=== PATIENT | male | born 1945 | race Caucasian/White ===

== ENCOUNTER 2018-03-15 16:52 | Inpatient (IN) ==
--- NOTE | 2018-03-15 21:09 | ED ---
HPI General Chief complaint: Extremity Problem,Nontraumatic Stated complaint: Legs swelling Time Seen by Provider: 03/15/18 20:41 History of Present Illness HPI narrative: 72-year-old male with a history of hyperlipidemia and hypertension presents to the emergency department for evaluation of lower extremity edema and wounds. The patient states that he has had these lower extremity wounds for the past 6 months. States that it has been worsening over the past 6 months. States that there is discharge and drainage noted. He states he does elevate the legs and keep them wrapped which has not been helping. States he sometimes feels as though he has a fever, has not taken his temperature. He denies any history of heart disease, heart failure. Denies any numbness or tingling, weakness. His PCP is Danelle JJ. No other complaints. Related Data Home Medications Medication Instructions Recorded Confirmed furosemide [Lasix] 40 mg PO DAILY 03/15/18 03/15/18 simvastatin 20 mg PO QPM 03/15/18 03/15/18 Allergies Allergy/AdvReac Type Severity Reaction Status Date / Time No Known Allergies Allergy Verified 03/15/18 21:47 Review of Systems ROS: all other systems reviewed are negative [facility] Medical History Medical History CHF (congestive heart failure) (Acute) Hyperlipidemia (Acute) Surgical history unknown (Acute) Family History Family History Other Family history normal Social History Social History Second Hand Smoke Exposure: No Smoking Status: Former smoker How Often Do You Have a Drink Containing Alcohol: Never Recent Travel in [facility] within the Last 8 Weeks: No Recent Out of Country Travel within the Last 8 Weeks: No Immunization History Tetanus Immunization: >5 Years Hx Influenza Vaccine This Season: No Exam Narrative Exam Narrative: GENERAL: Well-nourished and well-developed pleasant male patient in no acute distress who is nontoxic appearing. SKIN: Warm and dry. HEAD: Normocephalic and atraumatic. EYES: No injection, drainage, or hyphema noted. PERRLA. EOMI. ENT: No nasal drainage noted. Oropharynx is clear. NECK: Supple and the trachea is midline. CARDIOVASCULAR: Regular rate and rhythm. RESPIRATORY: Breath sounds are equal bilaterally with no accessory muscle use, wheezing, rhonchi, or crackles. GASTROINTESTINAL: Abdomen is soft, non-tender, and nondistended. MUSCULOSKELETAL: Bilateral lower extremity edema with skin hypertrophy and sloughing, there is erythema and several large areas of ulcers with necrotic tissue. No obvious deformities, swelling, cyanosis, or ecchymosis is present throughout the upper and lower extremities. Patient has full range of motion without any signs of neurovascular compromise. Distal pulses are 2+ throughout. NEUROLOGICAL: Awake, alert, and oriented. Normal speech and gait. Cranial nerves are grossly intact. Course Initial Documented Vital Signs Temperature 98.9 F 03/15/18 17:03 Pulse Rate 83 03/15/18 17:03 Respiratory Rate 16 03/15/18 17:03 Blood Pressure 127/71 03/15/18 17:03 Pulse Oximetry 95 03/15/18 17:03 Last Documented Vital Signs Temperature 98 F 03/16/18 05:15 Pulse Rate 69 03/16/18 05:15 Respiratory Rate 17 03/16/18 05:15 Blood Pressure 150/79 H 03/16/18 05:15 Pulse Oximetry 97 03/16/18 05:15 Medical Decision Making ELAINA Attestation ELAINA supervised visit: Yes Attestation: I, Dr. Jensen, have reviewed the advance practice practitioner's documentation and am in agreement, met with the patient face to face, made the diagnosis, and the medical decision making was done by me. The patient was initially evaluated by Maria Antonia, the ELAINA. Please see their complete history and physical. *My assessment and Findings: The patient presents with a history of worsening pain related to ulcers on his lower extremities. The patient reports that he has had a subjective fever associated with this. He denies having any chills. He denies having any nausea, vomiting, or diarrhea. He reports that he last moved his bowels yesterday. He denies being any in the wound care for these areas of ulceration. He reports that the wounds began 6 months ago. They have progressively worsened with time. His examination is remarkable for deep areas of ulceration on bilateral lower extremities, skin overlying tib-fib bilaterally. The 2 on the left leg are slightly worse than the right leg and that they are necrotic appearing at their bases. During the course of the patient's emergency department visit, the patient's history, examination, and differential diagnosis were reviewed with the patient. The patient was placed on a court monitor with oximetry and frequent blood pressure monitoring. The patient had IV access obtained and blood work sent for analysis. Wound cultures of the sites were done. The patient was initially provided Zosyn and vancomycin for broad-spectrum antibiotic coverage. The patient's studies were reviewed and remarkable for Sedimentation rate of 83, white count 10.3, hemoglobin 12.6, chemistry reveals a C-reactive protein of 11, lactic acid 1.3, glucose 116, potassium 3.4, BUN 20, albumin 2.7. An x- ray of the right tib-fib shows prominent edema and induration of the soft tissues of the leg, otherwise unremarkable, chest x-ray shows no acute abnormality. Left tib-fib x-ray shows a suspicious area for osteomyelitis. The patient's results were discussed with the patient, including the plan of care. I explained that further testing and/ or monitoring is indicated based on the patient's history, examination, and/ or laboratory findings. Therefore, I recommended admission for additional evaluation. The patient expressed understanding and was agreeable with this plan. The patient was admitted to the hospital in guarded condition and sent to a bed under the care of the [facility] service. MDM Narrative Medical decision making narrative: 72-year-old male presents to the ED for evaluation of bilateral lower extremity edema with ulcers. Patient is afebrile , vitals are stable. Patient has lower extremity ulcers with necrotic tissue. IV access is obtained labs have been drawn and sent. Patient administered Zosyn and Vancomycin. Sed rate and CRP elevated. CBC WNL. CXR negative. Lactic WNL. XR of left leg shows periosteal reaction in the mid fibula could be osteomyelitis. XR of right leg shows edema but otherwise negative. I spoke with Dr. Robert [facility] who agrees to admit the patient to her service. Medical Screen Exam Complete: Yes Emergency Medical Condition: Yes Differential Diagnosis Differential Diagnosis: Sepsis versus cellulitis versus pressure ulcer versus lymphedema Lab Data Result diagrams: 03/15/18 21:10 03/15/18 21:10 Lab Results 03/15/18 03/15/18 03/15/18 Range/Units 21:10 21:10 21:15 WBC 10.3 (4.0-11.0) th/mm3 RBC 4.74 (4.50-5.90) mil/mm3 Hgb 12.6 L (13.0-17.0) gm/dL Hct 39.8 (39.0-51.0) % MCV 83.9 (80.0-100.0) fL MCH 26.6 L (27.0-34.0) pg MCHC 31.7 L (32.0-36.0) % RDW 14.3 (11.6-17.2) % Plt Count 351 (150-450) th/mm3 MPV 8.4 (7.0-11.0) fL Neut % (Auto) 65.5 (16.0-70.0) % Lymph % (Auto) 23.0 (9.0-44.0) % [place] % (Auto) 7.3 (0.0-8.0) % Eos % (Auto) 3.0 (0.0-4.0) % Baso % (Auto) 1.2 (0.0-2.0) % Neut # (Auto) 6.7 (1.8-7.7) th/mm3 Lymph # (Auto) 2.4 (1.0-4.8) th/mm3 [place] # (Auto) 0.8 (0.0-0.9) th/mm3 Eos # (Auto) 0.3 (0.0-0.4) th/mm3 Baso # (Auto) 0.1 (0.0-0.2) th/mm3 WBC Differential . Differential Comment Auto diff final ESR (0-20) mm/hr Sodium 142 (136-145) meq/L Potassium 3.4 L (3.5-5.1) meq/L Chloride 105 (98-107) meq/L Carbon Dioxide 25.2 (21.0-32.0) meq/L Anion Gap 12 (5-15) meq/L BUN 20 H (7-18) mg/dL Creatinine 0.81 (0.60-1.30) mg/dL Estimated GFR Greater than 89 (>89) mL/min Random Glucose 116 H (74-106) mg/dL Lactic Acid (0.4-2.0) mmol/L Calcium 9.0 (8.5-10.1) mg/dL Total Bilirubin 0.3 (0.2-1.0) mg/dL AST 15 (15-37) U/L ALT 16 (12-78) U/L Alkaline Phosphatase 68 (45-117) U/L C-Reactive Protein 11.00 H (0.00-0.30) mg/dL Total Protein 7.6 (6.4-8.2) g/dL Albumin 2.7 L (3.4-5.0) g/dL 03/15/18 03/15/18 Range/Units 21:15 21:15 WBC (4.0-11.0) th/mm3 RBC (4.50-5.90) mil/mm3 Hgb (13.0-17.0) gm/dL Hct (39.0-51.0) % MCV (80.0-100.0) fL MCH (27.0-34.0) pg MCHC (32.0-36.0) % RDW (11.6-17.2) % Plt Count (150-450) th/mm3 MPV (7.0-11.0) fL Neut % (Auto) (16.0-70.0) % Lymph % (Auto) (9.0-44.0) % [place] % (Auto) (0.0-8.0) % Eos % (Auto) (0.0-4.0) % Baso % (Auto) (0.0-2.0) % Neut # (Auto) (1.8-7.7) th/mm3 Lymph # (Auto) (1.0-4.8) th/mm3 [place] # (Auto) (0.0-0.9) th/mm3 Eos # (Auto) (0.0-0.4) th/mm3 Baso # (Auto) (0.0-0.2) th/mm3 WBC Differential Differential Comment ESR 83 H (0-20) mm/hr Sodium (136-145) meq/L Potassium (3.5-5.1) meq/L Chloride (98-107) meq/L Carbon Dioxide (21.0-32.0) meq/L Anion Gap (5-15) meq/L BUN (7-18) mg/dL Creatinine (0.60-1.30) mg/dL Estimated GFR (>89) mL/min Random Glucose (74-106) mg/dL Lactic Acid 1.3 (0.4-2.0) mmol/L Calcium (8.5-10.1) mg/dL Total Bilirubin (0.2-1.0) mg/dL AST (15-37) U/L ALT (12-78) U/L Alkaline Phosphatase (45-117) U/L C-Reactive Protein (0.00-0.30) mg/dL Total Protein (6.4-8.2) g/dL Albumin (3.4-5.0) g/dL Imaging Data Radiologist's impression: Chest X-Ray 03/15/18 21:01 CONCLUSION: The lungs are clear. Tibia/Fibula X-Ray 03/15/18 21:09 CONCLUSION: Abnormal appearance to the soft tissues of the calf. Irregular skin medially. Irregular hyperdensity in the posterior soft tissues of uncertain significance. Periosteal reaction in the mid fibula is nonspecific and could be reactive or due to osteomyelitis. Tibia/Fibula X-Ray 03/15/18 21:09 CONCLUSION: Prominent edema/induration of the soft tissues of the leg. The osseous structures are intact. Discharge Plan Discharge Disposition Patient Disposition: 30 Still Patient Discharge Details Diagnosis: Bilateral cellulitis of lower leg, Open wound of both legs with complication Physicians Team ED Provider: Viktoriya Jensen ED Midlevel Provider: Maria Antonia Clement Primary Care Provider: UNKNOWN, Attending Provider: Ricky Nichols Other Providers: Dread Yeh Status ED Status: Left Department Discharge Information Discharge Date/Time: 03/16/18 03:36
[2018-03-15] MEDS ORDERED: Vancomycin Inj 1,000 MG in Sodium Chlor 0.9% Inj 250 ML IV.SIG ONE (21:16)
[2018-03-15] MEDS ORDERED: Piperacil/Tazo 4.5 GM Premix 4.5 GM/100 ML BAG IV.SIG ONE (21:16)
[2018-03-15 21:34] LABS: Baso # (Auto) 0.1 th/mm3 (0.0-0.2); Baso % (Auto) 1.2 % (0.0-2.0); Eos # (Auto) 0.3 th/mm3 (0.0-0.4); Hematocrit 39.8 % (39.0-51.0); Hemoglobin 12.6 gm/dL (13.0-17.0); Lymph # (Auto) 2.4 th/mm3 (1.0-4.8); Mean Corpuscular HGB Conc 31.7 % (32.0-36.0); Mean Corpuscular Hemoglobin 26.6 pg (27.0-34.0); Mean Corpuscular Volume 83.9 fL (80.0-100.0); Mean Platelet Volume 8.4 fL (7.0-11.0); Mono # (Auto) 0.8 th/mm3 (0.0-0.9); Mono % (Auto) 7.3 % (0.0-8.0); Neut # (Auto) 6.7 th/mm3 (1.8-7.7); Neut % (Auto) 65.5 % (16.0-70.0); Platelet Count 351 th/mm3 (150-450); Red Blood Count 4.74 mil/mm3 (4.50-5.90); Red Cell Distribution Width 14.3 % (11.6-17.2); White Blood Count 10.3 th/mm3 (4.0-11.0)
--- NOTE | 2018-03-15 21:47 | XR ---
EXAM DATE: 03/15/2018 9:46 PM EDT AGE/SEX: 72 years / Male INDICATIONS: Fever. CLINICAL DATA: This is the patient's initial encounter. Patient reports that signs and symptoms have been present for 2 months and indicates a pain score of 0/10. MEDICAL/SURGICAL HISTORY: Hypertension. None. COMPARISON: No prior exams available for comparison. FINDINGS: A single AP view of the chest demonstrates the lungs to be symmetrically aerated without evidence of mass, infiltrate or effusion. The cardiomediastinal contours are unremarkable. Osseous structures a re intact. CONCLUSION: The lungs are clear. Electronically signed by: Benja Sullivan MD 03/15/2018 9:46 PM EDT
[2018-03-15 21:56] LABS: Albumin 2.7 g/dL (3.4-5.0); Anion Gap 12 meq/L (5-15); Aspartate Aminotransferase 15 U/L (15-37); Blood Urea Nitrogen 20 mg/dL (7-18); Carbon Dioxide 25.2 meq/L (21.0-32.0); Chloride 105 meq/L (98-107); Glomerular Filtration Rate Greater Than 89 mL/min (>89); Glucose,Random 116 mg/dL (74-106); Potassium 3.4 meq/L (3.5-5.1); Sodium 142 meq/L (136-145)
[2018-03-15 21:57] LABS: Alanine Aminotransferase 16 U/L (12-78)
[2018-03-15 21:59] LABS: Alkaline Phosphatase 68 U/L (45-117); Total Protein 7.6 g/dL (6.4-8.2)
--- NOTE | 2018-03-15 22:21 | XR ---
EXAM DATE: 03/15/2018 9:47 PM EDT AGE/SEX: 72 years / Male INDICATIONS: Left lower leg swelling and cellulitis. CLINICAL DATA: This is the patient's initial encounter. Patient reports that signs and symptoms have been present for 2 months and indicates a pain score of 5/10. MEDICAL/SURGICAL HISTORY: Hypertension. None. COMPARISON: No prior exams available for comparison. FINDINGS: Bony structures are intact and in normal alignment. Osseous density is normal. There is some question able periosteal reaction in the mid shaft of the fibula. There is diffuse soft tissue swelling about the mid and distal leg and a focal area of hyperdensity in the posterior mid calf is of uncertain sig nificance. CONCLUSION: Abnormal appearance to the soft tissues of the calf. Irregular skin medially. Irregular hyperdensity in the posterior soft tissues of uncertain significance. Periosteal reaction in the mid fibula is non specific and could be reactive or due to osteomyelitis. Electronically signed by: Benja Sullivan MD 03/15/2018 10:20 PM EDT
--- NOTE | 2018-03-15 22:22 | XR ---
EXAM DATE: 03/15/2018 9:49 PM EDT AGE/SEX: 72 years / Male INDICATIONS: Right lower leg swelling and cellulitis. CLINICAL DATA: This is the patient's initial encounter. Patient reports that signs and symptoms have been present for 2 months and indicates a pain score of 5/10. MEDICAL/SURGICAL HISTORY: Hypertension. None. COMPARISON: No prior exams available for comparison. FINDINGS: There is irregularity of the soft tissues and induration. No radiopaque foreign bodies seen. The shaf t of the tibia and fibula are intact. No evidence of periosteal reaction or focal bony destruction. CONCLUSION: Prominent edema/induration of the soft tissues of the leg. The osseous structures are intact. Electronically signed by: Benja Sullivan MD 03/15/2018 10:21 PM EDT
[2018-03-16] MEDS ORDERED: Vancomycin Consult Pharmacy OTHER PRN (01:08)
[2018-03-16] MEDS ORDERED: Acetaminophen 325 MG Tablet PO PRN (01:11)
[2018-03-16] MEDS ORDERED: Bisacodyl 10 MG Supp RECTAL PRN (01:11)
--- NOTE | 2018-03-16 01:15 | P.HP ---
History of Present Illness Service: [facility] Primary Care Physician: UNKNOWN History of Present Illness: 72-year-old male with a past medical history of CHF and hyperlipidemia presents to the emergency department for evaluation of lower extremity pain and wounds. Patient states he has had wounds on his lower extremities bilaterally for the past 6 months. He states it has been worsening over that timeframe. He states there is a discharge and drainage noted. He reports subjective fever/chills. Reports pain with ambulation. Denies chest pain or shortness of breath. No abdominal pain. No nausea/vomiting/diarrhea. Inpatient Certification: I certify that the inpatient services were ordered in accordance with Medicare regulations governing the order. This includes certification that hospital inpatient services are reasonable and necessary and in the case of services not specified as inpatient-only under 42 CFR 419.22(n), that they are appropriately provided as inpatient services in accordance to with the 2-midnight benchmark under 43 CFR 412.3(e) Review of Systems All other systems reviewed negative except as stated in HPI PMFSH - History History Provided By: Patient - Medical / Surgical Hx Neg / Unobtainable Surgical History: No Previous Surgery - Medical History Medical History: Medical History (Last Updated 03/16/18 @ 01:15 by Sarah Robert MD) CHF (congestive heart failure) Hyperlipidemia Surgical history unknown - Family History Family History: Family History (Last Updated 03/16/18 @ 01:02 by Sarah Robert MD) Other Family history normal - Tobacco History Second Hand Smoke Exposure: No Smoking Status: Former smoker - Alcohol History How Often Do You Have a Drink Containing Alcohol: Never - Travel History Recent Travel in the [place] Within the Last 8 Weeks: No Recent Travel Out of the Country Within the Last 8 Weeks: No - Immunization History Tetanus Immunization: >5 Years Hx Influenza Vaccine This Season: No Medications and Allergies Allergies Allergy/AdvReac Type Severity Reaction Status Date / Time No Known Allergies Allergy Verified 03/15/18 21:47 Home Medications Medication Instructions Recorded Confirmed Type furosemide [Lasix] 40 mg PO DAILY 03/15/18 03/15/18 History simvastatin 20 mg PO QPM 03/15/18 03/15/18 History Exam Vital signs: Vital Signs 03/15/18 17:03 Temperature 98.9 F Pulse Rate 83 Respiratory Rate 16 Blood Pressure 127/71 Pulse Oximetry 95 Intake & Output 03/15/18 03/15/1803/16/18 06:59 18:59 06:59 Intake Total 350 / 350 Balance 350 / 350 Weight 100.698 kg Intake: IV 350 / 350 Zosyn 4.5 GM Premix 4.5 gm In 100 / 100 100 ml @ 200 mls/hr IV.SIG ONCE ONE Rx#:[id number] Vancomycin Inj 1,000 MG In NS 250 / 250 Inj 250 ML @ 250 mls/hr IV.SIG ONCE ONE Rx#:[id number] Narrative: Gen.: No acute distress Head: Normocephalic. Atraumatic. EENT: Pupils equal round and reactive to light. Nose without drainage. Airway intact. Throat without injection. Cardiovascular: Regular rate and rhythm. No murmurs, rubs or gallops. Respiratory: Lungs clear to auscultation bilaterally. No wheezes or rhonchi. Abdomen: Soft, nontender, nondistended. No peritoneal signs. Musculoskeletal: Bilateral lower extremity edema with chronic skin changes. Erythema and several large ulcerations with areas of necrotic tissue on the bilateral lower extremities. Purulent drainage that is foul-smelling. Skin: No obvious rashes or erythema. Neuro: Sensory and motor grossly intact. Cranial nerves II through XII grossly intact. Results - Labs CBC & Chem 7: 03/15/18 21:10 03/15/18 21:10 Labs: Laboratory Results - last 24 hr 03/15/18 03/15/18 03/15/18 21:10 21:10 21:15 WBC 10.3 RBC 4.74 Hgb 12.6 L Hct 39.8 MCV 83.9 MCH 26.6 L MCHC 31.7 L RDW 14.3 Plt Count 351 MPV 8.4 Neut % (Auto) 65.5 Lymph % (Auto) 23.0 [place] % (Auto) 7.3 Eos % (Auto) 3.0 Baso % (Auto) 1.2 Neut # (Auto) 6.7 Lymph # (Auto) 2.4 [place] # (Auto) 0.8 Eos # (Auto) 0.3 Baso # (Auto) 0.1 WBC Differential . Differential Comment Auto diff final ESR Sodium 142 Potassium 3.4 L Chloride 105 Carbon Dioxide 25.2 Anion Gap 12 BUN 20 H Creatinine 0.81 Estimated GFR Greater than 89 Random Glucose 116 H Lactic Acid Calcium 9.0 Total Bilirubin 0.3 AST 15 ALT 16 Alkaline Phosphatase 68 C-Reactive Protein 11.00 H Total Protein 7.6 Albumin 2.7 L 03/15/18 03/15/18 21:15 21:15 WBC RBC Hgb Hct MCV MCH MCHC RDW Plt Count MPV Neut % (Auto) Lymph % (Auto) [place] % (Auto) Eos % (Auto) Baso % (Auto) Neut # (Auto) Lymph # (Auto) [place] # (Auto) Eos # (Auto) Baso # (Auto) WBC Differential Differential Comment ESR 83 H Sodium Potassium Chloride Carbon Dioxide Anion Gap BUN Creatinine Estimated GFR Random Glucose Lactic Acid 1.3 Calcium Total Bilirubin AST ALT Alkaline Phosphatase C-Reactive Protein Total Protein Albumin - Imaging Impressions Chest X-Ray 03/15/18 21:01 CONCLUSION: The lungs are clear. Tibia/Fibula X-Ray 03/15/18 21:09 CONCLUSION: Abnormal appearance to the soft tissues of the calf. Irregular skin medially. Irregular hyperdensity in the posterior soft tissues of uncertain significance. Periosteal reaction in the mid fibula is nonspecific and could be reactive or due to osteomyelitis. Tibia/Fibula X-Ray 03/15/18 21:09 CONCLUSION: Prominent edema/induration of the soft tissues of the leg. The osseous structures are intact. Caprini VTE Risk Assessment Caprini VTE Risk Assessment: Moderate/High Risk (score >= 2) Caprini Risk Assessment Model: Point Value = 1 Point Value = 2 Point Value = 3 Point Value = 5 Age 41-60 Minor surgery BMI > 25 kg/m2 Swollen legs Varicose veins or History of unexplained or recurrent spontaneous Oral contraceptives or hormone replacement Sepsis (< 1 month) Serious lung disease, including pneumonia (< 1 month) Abnormal pulmonary function Acute myocardial infarction Congestive heart failure (< 1 month) History of inflammatory bowel disease Medical patient at bed rest Age 61-74 Arthroscopic surgery Major open surgery (> 45 min) Laparoscopic surgery (> 45 min) Malignancy Confined to bed (> 72 hours) Immobilizing plaster cast Central venous access Age >= 75 History of VTE Family history of VTE Factor V Leiden Prothrombin [id number] Lupus anticoagulant Anticardiolipin antibodies Elevated serum homocysteine Heparin-induced thrombocytopenia Other congenital or acquired thrombophilia Stroke (< 1 month) Elective arthroplasty Hip, pelvis, or leg fracture Acute spinal cord injury (< 1 month) Prophylaxis Regimen: Total Risk Factor Score Risk Level Prophylaxis Regimen 0-1 Low Early ambulation 2 Moderate Order ONE of the following: *Sequential Compression Device (SCD) *Heparin 5000 units SQ BID 3-4 Higher Order ONE of the following medications: *Heparin 5000 units SQ TID *Enoxaparin/Lovenox 40 mg SQ daily (WT < 150 kg, CrCl > 30 mL/min) *Enoxaparin/Lovenox 30 mg SQ daily (WT < 150 kg, CrCl > 10-29 mL/min) *Enoxaparin/Lovenox 30 mg SQ BID (WT < 150 kg, CrCl > 30 mL/min) AND/OR *Sequential Compression Device (SCD) 5 or more Highest Order ONE of the following medications: *Heparin 5000 units SQ TID (Preferred with Epidurals) *Enoxaparin/Lovenox 40 mg SQ daily (WT < 150 kg, CrCl > 30 mL/min) *Enoxaparin/Lovenox 30 mg SQ daily (WT < 150 kg, CrCl > 10-29 mL/min) *Enoxaparin/Lovenox 30 mg SQ BID (WT < 150 kg, CrCl > 30 mL/min) AND *Sequential Compression Device (SCD) Assessment and Plan - Plan Assessment/plan: 1. Bilateral lower extremity wounds/? Osteomyelitis Vancomycin/Zosyn MRI left lower extremity pending as x-ray showed periosteal reaction in the mid fibula which may be secondary to osteomyelitis CRP elevated Orthopedic surgery consulted, appreciate recommendations Wound, blood cultures pending Wound care consulted 2. CHF Continue home Lasix 3. Hyperlipidemia Continue home statin FEN N.p.o. Electrolytes: Status post p.o. repletion of potassium, monitor BMP Holding pharmacologic anticoagulation for possible operative intervention
[2018-03-16] MEDS: Morphine Inj 4 MG/ML Vial IV.PUSH PRN ×2 (01:23→19:32)
[2018-03-16] MEDS ORDERED: Vancomycin Inj 700 MG in Sodium Chlor 0.9% Inj 250 ML IV.SIG SCH (02:00)
[2018-03-16] MEDS: Piperacil/Tazo 3.375 GM Premix 50 ML IV.SIG SCH ×4 (02:10→21:36)
--- NOTE | 2018-03-16 09:14 | P.CONOP ---
[facility] Orthopedics Consult Note - [facility] Consult date: 03/16/18 Chief complaint: Bilateral Lower Extremity Cellulitis with Ulcers Narrative: 72-year-old male with a past medical history of CHF and hyperlipidemia presents to the emergency department for evaluation of lower extremity pain and wounds. Patient states he has had wounds on his lower extremities bilaterally for the past 6 months. He states it has been worsening over that timeframe. He states there is a discharge and drainage noted. He reports subjective fever/chills. Reports pain with ambulation. Denies chest pain or shortness of breath. No abdominal pain. No nausea/vomiting/diarrhea. The patient states that he has had no treatment for the legs. He describes a significant amount of pain. He did have x-rays which were performed which showed a possible osteomyelitis of the fibula. He denies surgical management on the legs. Review of Systems A 12 point review of systems was reviewed and is negative unless as specified in the history of present illness. PMFSH - History History Provided By: Patient - Medical History Medical History: Medical History (Last Reviewed 03/16/18 @ 09:07 by Dread Yeh MD) CHF (congestive heart failure) Hyperlipidemia Surgical history unknown - Family History Family History: Family History (Last Reviewed 03/16/18 @ 09:08 by Dread Yeh MD) Other Family history normal - Tobacco History Second Hand Smoke Exposure: No Smoking Status: Former smoker - Alcohol History How Often Do You Have a Drink Containing Alcohol: Never - Travel History Recent Travel in the [place] Within the Last 8 Weeks: No Recent Travel Out of the Country Within the Last 8 Weeks: No - Immunization History Tetanus Immunization: >5 Years Hx Influenza Vaccine This Season: No Medications and Allergies Active Medications: Active Medications Acetaminophen (Tylenol) 650 mg PO Q4H PRN PRN Reason: Temp > 100.4 Al Hydroxide/Mg Hydroxide (Milk Of Magnesia Liq) 30 ml PO Q12H PRN PRN Reason: Mild Constipation Bisacodyl (Dulcolax Supp) 10 mg RECTAL DAILY PRN PRN Reason: SEVERE CONSITIPATION Furosemide (Lasix) 40 mg PO DAILY RICKI Piperacillin/Tazobactam/Dextrose (Zosyn 3.375 Gm Premix) 50 mls @ 100 mls/hr IV.SIG Q6H [facility]ICK[facility] Last Infusion: 03/16/18 02:28 Dose: Infused Lactulose (Lactulose Liq) 30 ml PO DAILY PRN PRN Reason: SEVERE CONSITIPATION Morphine Sulfate (Morphine Inj) 4 mg IV.PUSH Q4H PRN PRN Reason: pain 6-10 Last Admin: 03/16/18 01:23 Dose: 4 mg Ondansetron HCl (Zofran Inj) 4 mg IV.PUSH Q6H PRN PRN Reason: NAUSEA OR VOMITING Pharmacy Profile Note (Vancomycin Consult Pharmacy) 1 each OTHER UNSCH PRN PRN Reason: Pharmacy to dose Pravastatin Sodium (Pravachol) 40 mg PO QPM [facility] Senna/Docusate Sodium (Renee-Colace) 1 tab PO BID [facility] Sennosides (Senokot) 17.2 mg PO Q12H PRN PRN Reason: Moderate Constipation Allergies Allergy/AdvReac Type Severity Reaction Status Date / Time No Known Allergies Allergy Verified 03/15/18 21:47 Home Medications Medication Instructions Recorded Confirmed Type furosemide [Lasix] 40 mg PO DAILY 03/15/18 03/15/18 History simvastatin 20 mg PO QPM 03/15/18 03/15/18 History Exam Vital signs: Vital Signs 03/15/18 17:03 03/16/18 01:21 03/16/18 03:00 Temperature 98.9 F Pulse Rate 83 71 Respiratory Rate 16 20 20 Blood Pressure 127/71 170/74 H Pulse Oximetry 95 98 03/16/18 05:15 Temperature 98 F Pulse Rate 69 Respiratory Rate 17 Blood Pressure 150/79 H Pulse Oximetry 97 Intake & Output 03/15/18 03/16/18 03/16/18 18:59 06:59 18:59 Intake Total 842 / 842 257 / 257 Balance 842 / 842 257 / 257 Weight 100.698 kg 100.6 kg Intake: IV 400 / 400 257 / 257 Zosyn 3.375 GM Premix 50 ML @ 50 / 50 100 mls/hr IV.SIG Q6H [facility] Rx#: [id number] Zosyn 4.5 GM Premix 4.5 gm In 100 / 100 100 ml @ 200 mls/hr IV.SIG ONCE ONE Rx#:[id number] Vancomycin Inj 1,000 MG In NS 250 / 250 Inj 250 ML @ 250 mls/hr IV.SIG ONCE ONE Rx#:[id number] Vancomycin Inj 700 MG In NS Inj 0 / 0 257 / 257 250 ML @ 250 mls/hr IV.SIG DAILY@0200 [facility] Rx#:[id number] Oral 442 / 442 Other: # Voids 2 Date of Last Bowel Movement 03/15/18 Narrative: GENERAL: The patient is awake, alert and oriented x3, but somewhat of a blunted affect. The patient is no significant distress. PSYCHIATRIC: Blunted affect. It does not seem as if the patient has good insight into his severe medical conditions of the legs. HEENT: Head is atraumatic. Oropharynx is moist. Extraocular muscles are intact. NECK: Non-tender and supple. LUNGS: No audible wheezing. He has normal inspiratory effort with no signs of dyspnea HEART: Regular rate and rhythm. ABDOMEN: Soft, nontender, and nondistended. BACK: No CVA tenderness. EXTREMITIES/SKIN/NEURO/VASCULAR: Both legs have significant swelling. There is evidence of very significant chronic venous disease of the lower extremities. The left leg has 2 wounds with a large one on the lateral side and a medium sized one on the medial side. These may be full-thickness but there seems to be very thickened chronic proteinaceous covering with no active drainage or purulence coming from these wounds. He has swelling of both feet. I cannot palpate pulses on the bilateral lower extremities. He has incredibly thickened and sclerotic and deformed toenails and significant chronic changes of the skin about the toes. He has decreased range of motion of the toes. The bilateral knees have no swelling with no effusions noted. Results - Labs Result Diagrams: 03/15/18 21:10 03/15/18 21:10 Labs: Laboratory Results - last 24 hr 03/15/18 03/15/18 03/15/18 21:10 21:10 21:15 WBC 10.3 RBC 4.74 Hgb 12.6 L Hct 39.8 MCV 83.9 MCH 26.6 L MCHC 31.7 L RDW 14.3 Plt Count 351 MPV 8.4 Neut % (Auto) 65.5 Lymph % (Auto) 23.0 [place] % (Auto) 7.3 Eos % (Auto) 3.0 Baso % (Auto) 1.2 Neut # (Auto) 6.7 Lymph # (Auto) 2.4 [place] # (Auto) 0.8 Eos # (Auto) 0.3 Baso # (Auto) 0.1 WBC Differential . Differential Comment Auto diff final ESR Sodium 142 Potassium 3.4 L Chloride 105 Carbon Dioxide 25.2 Anion Gap 12 BUN 20 H Creatinine 0.81 Estimated GFR Greater than 89 Random Glucose 116 H Lactic Acid Calcium 9.0 Total Bilirubin 0.3 AST 15 ALT 16 Alkaline Phosphatase 68 C-Reactive Protein 11.00 H Total Protein 7.6 Albumin 2.7 L 03/15/18 03/15/18 21:15 21:15 WBC RBC Hgb Hct MCV MCH MCHC RDW Plt Count MPV Neut % (Auto) Lymph % (Auto) [place] % (Auto) Eos % (Auto) Baso % (Auto) Neut # (Auto) Lymph # (Auto) [place] # (Auto) Eos # (Auto) Baso # (Auto) WBC Differential Differential Comment ESR 83 H Sodium Potassium Chloride Carbon Dioxide Anion Gap BUN Creatinine Estimated GFR Random Glucose Lactic Acid 1.3 Calcium Total Bilirubin AST ALT Alkaline Phosphatase C-Reactive Protein Total Protein Albumin - Diagnostic results Imaging: Impressions Chest X-Ray 03/15/18 21:01 CONCLUSION: The lungs are clear. Tibia/Fibula X-Ray 03/15/18 21:09 CONCLUSION: Abnormal appearance to the soft tissues of the calf. Irregular skin medially. Irregular hyperdensity in the posterior soft tissues of uncertain significance. Periosteal reaction in the mid fibula is nonspecific and could be reactive or due to osteomyelitis. I have reviewed the images for this radiology study. I agree with the interpretation given by the radiologist. Tibia/Fibula X-Ray 03/15/18 21:09 CONCLUSION: Prominent edema/induration of the soft tissues of the leg. The osseous structures are intact. I have reviewed the images for this radiology study. I agree with the interpretation given by the radiologist. Assessment and Plan - Assessment and Plan 72-year-old male with a past medical history of CHF and hyperlipidemia. Bilateral lower extremity severe vascular venous disease with chronic wounds on the left leg. Possible osteomyelitis left fibula. This is a very significant problem for the patient. He does not seem to have much insight into the serious nature of his active disease on the lower extremities. He is pending an MRI of the left lower leg to evaluate for possible osteomyelitis of the fibula. I requested an infectious disease consultation to help with management with this possible infection. Additionally , I requested podiatry to help with the lower extremity wounds and also his severe chronic thickening and deformity of his nails. This patient requires much better care for his lower extremities. I requested vascular surgery to see the patient because he has severe venous disease and possibly arterial disease as I did not palpate good pulses. This could potentially be due to the swelling as well. Patient may require revascularization to the legs. Ultimately if this care (including the wound care consult that was already called) cannot manage his disease process well then the patient may end up needing either a [id number] or [id number] amputation. At this point I feel that it is too premature to consider this. We will follow the results of the consultations and the imaging. - Attending Attestation Attending Attestation: A mid level provider in my office, nurse practitioner or PA, may see this patient on a follow up basis and continue to implement the plan including: starting or adjusting medications, injections of muscle, tendons, bursa or joints, cast application, orthotic or brace application, physical therapy, further radiographic studies including X-ray, MRI, CT, ultrasound or bone scan , vascular studies, neurological studies, or other specialist consultations, and proceeding with surgical management as appropriate.
[2018-03-16] MEDS: Furosemide 40 MG Tablet PO SCH (09:18)
[2018-03-16] MEDS: Senna/Docusate Sodium 8.6/50 MG Tablet PO SCH ×2 (09:18→21:38)
--- NOTE | 2018-03-16 10:52 | P.PNIM ---
Subjective Interval history: 72-year-old male with a past medical history of CHF and hyperlipidemia presents to the emergency department for evaluation of lower extremity pain and wounds. Patient states he has had wounds on his lower extremities bilaterally for the past 6 months. He states it has been worsening over that timeframe. He states there is a discharge and drainage noted. He reports subjective fever/chills. Reports pain with ambulation. Denies chest pain or shortness of breath. No abdominal pain. No nausea/vomiting/diarrhea. 03-16 SEEN BY ORTHO NO SURGERY YET VASCULAR, ID, PODIATRY HAVE NOW BEEN CONSULTED WOUNDS HAVE BEEN THERE AT LEAST 6 PLUS MONTHS IF PATIENT HISTORY IS CORRECT PRN CATAPRES START NORVASC 5 MG PO DAILY FOR HTN Physical Exam Vital signs: Vital Signs 03/15/18 17:03 03/16/18 01:21 03/16/18 03:00 Temperature 98.9 F Pulse Rate 83 71 Respiratory Rate 16 20 20 Blood Pressure 127/71 170/74 H Pulse Oximetry 95 98 03/16/18 05:15 03/16/18 08:00 Temperature 98 F 99.2 F Pulse Rate 69 72 Respiratory Rate 17 20 Blood Pressure 150/79 H 186/79 H Pulse Oximetry 97 96 Intake & Output 03/15/18 03/16/18 03/16/18 18:59 06:59 18:59 Intake Total 842 / 842 307 / 307 Balance 842 / 842 307 / 307 Weight 100.698 kg 100.6 kg Intake: IV 400 / 400 307 / 307 Zosyn 3.375 GM Premix 50 ML @ 50 / 50 50 / 50 100 mls/hr IV.SIG Q6H [facility] Rx#: [id number] Zosyn 4.5 GM Premix 4.5 gm In 100 / 100 100 ml @ 200 mls/hr IV.SIG ONCE ONE Rx#:[id number] Vancomycin Inj 1,000 MG In NS 250 / 250 Inj 250 ML @ 250 mls/hr IV.SIG ONCE ONE Rx#:[id number] Vancomycin Inj 700 MG In NS Inj 0 / 0 257 / 257 250 ML @ 250 mls/hr IV.SIG DAILY@0200 [facility] Rx#:[id number] Oral 442 / 442 Other: # Voids 2 Date of Last Bowel Movement 03/15/18 Narrative: Gen.: No acute distress Awake alert and oriented x3 talkative and cooperative Head: Normocephalic. Atraumatic. EENT: Pupils equal round and reactive to light. Nose without drainage. Airway intact. Throat without injection. EOMI Neck is supple tongue is midline no JVD Cardiovascular: Regular rate and rhythm. No murmurs, rubs or gallops. S1-S2 no S3 or S4 Respiratory: Lungs clear to auscultation bilaterally. No wheezes or rhonchi. Abdomen: Soft, nontender, nondistended. No peritoneal signs. Musculoskeletal: Bilateral lower extremity edema with chronic skin changes. Erythema and several large ulcerations with areas of necrotic tissue on the bilateral lower extremities. Purulent drainage that is foul-smelling. Skin: See above Neuro: Sensory and motor grossly intact. Cranial nerves II through XII grossly intact. Insight and judgment is limited Mood and behavior somewhat inappropriate Results - Labs CBC & Chem 7: 03/15/18 21:10 03/15/18 21:10 Laboratory Results - last 24 hr 03/15/18 03/15/18 03/15/18 21:10 21:10 21:15 WBC 10.3 RBC 4.74 Hgb 12.6 L Hct 39.8 MCV 83.9 MCH 26.6 L MCHC 31.7 L RDW 14.3 Plt Count 351 MPV 8.4 Neut % (Auto) 65.5 Lymph % (Auto) 23.0 [place] % (Auto) 7.3 Eos % (Auto) 3.0 Baso % (Auto) 1.2 Neut # (Auto) 6.7 Lymph # (Auto) 2.4 [place] # (Auto) 0.8 Eos # (Auto) 0.3 Baso # (Auto) 0.1 WBC Differential . Differential Comment Auto diff final ESR Sodium 142 Potassium 3.4 L Chloride 105 Carbon Dioxide 25.2 Anion Gap 12 BUN 20 H Creatinine 0.81 Estimated GFR Greater than 89 Random Glucose 116 H Lactic Acid Calcium 9.0 Total Bilirubin 0.3 AST 15 ALT 16 Alkaline Phosphatase 68 C-Reactive Protein 11.00 H Total Protein 7.6 Albumin 2.7 L 03/15/18 03/15/18 21:15 21:15 WBC RBC Hgb Hct MCV MCH MCHC RDW Plt Count MPV Neut % (Auto) Lymph % (Auto) [place] % (Auto) Eos % (Auto) Baso % (Auto) Neut # (Auto) Lymph # (Auto) [place] # (Auto) Eos # (Auto) Baso # (Auto) WBC Differential Differential Comment ESR 83 H Sodium Potassium Chloride Carbon Dioxide Anion Gap BUN Creatinine Estimated GFR Random Glucose Lactic Acid 1.3 Calcium Total Bilirubin AST ALT Alkaline Phosphatase C-Reactive Protein Total Protein Albumin Microbiology 03/15/18 21:18 Wound - Leg Gram Stain - Final - Imaging Impressions Chest X-Ray 03/15/18 21:01 CONCLUSION: The lungs are clear. Tibia/Fibula X-Ray 03/15/18 21:09 CONCLUSION: Abnormal appearance to the soft tissues of the calf. Irregular skin medially. Irregular hyperdensity in the posterior soft tissues of uncertain significance. Periosteal reaction in the mid fibula is nonspecific and could be reactive or due to osteomyelitis. Tibia/Fibula X-Ray 03/15/18 21:09 CONCLUSION: Prominent edema/induration of the soft tissues of the leg. The osseous structures are intact. Assessment and Plan - Plan 1. Bilateral lower extremity wounds/? Osteomyelitis Vancomycin/Zosyn MRI left lower extremity pending as x-ray showed periosteal reaction in the mid fibula which may be secondary to osteomyelitis CRP elevated Orthopedic surgery consulted, appreciate recommendations Wound, blood cultures pending Wound care consulted 2. CHF Continue home Lasix 3. Hyperlipidemia Continue home statin HYPERTENSION - PRN CATAPRES AND SCHEDULED NORVASC 5MG PO DAILY AM LABS DIET DM CARDIAC WILL NEED ID, VASCULAR AND PODIATRY EVALUATIONS WILL GET MRI OF LEGS Code Status: FULL CODE Discussed Condition With: RN AND PT AND CM Discharge Planning: PENDING CLEARANCE BY ALL
[2018-03-16] MEDS: amLODIPine 5 MG Tablet PO SCH (11:44)
[2018-03-16] MEDS ORDERED: Gadobutrol PF 10 MMOL/10 ML Vial (for RAD) IV.SIG ONE (14:30)
--- NOTE | 2018-03-16 14:42 | MR ---
EXAM DATE: 03/16/2018 2:20 PM EDT AGE/SEX: 72 years / Male INDICATIONS: Wound on lateral aspect of left leg. CLINICAL DATA: This is the patient's subsequent encounter. Patient reports that signs and symptoms h ave been present for 2 days and indicates a pain score of 2/10. MEDICAL/SURGICAL HISTORY: Congestive heart failure. Hypercholesterolemia. None. COMPARISON: No prior exams available for comparison. TECHNIQUE: Multiplanar, multisequence MRI examination was performed without and with ml Gadavist (ga dobutrol) contrast as single exam dose. FINDINGS: There is a wound on the lateral aspect of the left leg that extends into the muscle without myositis or deep space abscess. Generalized subcutis edema with multiple varicosities no deep venous thrombosis.. There is no osteomy elitis One is far removed from the lateral tendon complex and neurovascular bundle CONCLUSION: 1. Superficial wound lateral aspect of the leg that has extended down to the muscle with minimal kylah sitis 2. Generalized subcutaneous edema. Electronically signed by: Ricky Potter MD 03/16/2018 2:40 PM EDT
--- NOTE | 2018-03-16 15:13 | P.PNVS ---
Subjective Subjective/Hospital Course: Patient and diagnostic studies evaluated Full consult dictated We will continue to follow CTA with runoff ordered Thanks J Objective Vital Signs / I&O: Vital Signs 03/15/18 17:03 03/16/18 01:21 03/16/18 03:00 Temperature 98.9 F Pulse Rate 83 71 Respiratory Rate 16 20 20 Blood Pressure 127/71 170/74 H Pulse Oximetry 95 98 03/16/18 05:15 03/16/18 08:00 Temperature 98 F 99.2 F Pulse Rate 69 72 Respiratory Rate 17 20 Blood Pressure 150/79 H 186/79 H Pulse Oximetry 97 96 Intake & Output 03/15/18 03/16/18 03/16/18 18:59 06:59 18:59 Intake Total 842 / 842 307 / 307 Balance 842 / 842 307 / 307 Weight 100.698 kg 100.6 kg Intake: IV 400 / 400 307 / 307 Zosyn 3.375 GM Premix 50 ML @ 50 / 50 50 / 50 100 mls/hr IV.SIG Q6H [facility] Rx#: [id number] Zosyn 4.5 GM Premix 4.5 gm In 100 / 100 100 ml @ 200 mls/hr IV.SIG ONCE ONE Rx#:[id number] Vancomycin Inj 1,000 MG In NS 250 / 250 Inj 250 ML @ 250 mls/hr IV.SIG ONCE ONE Rx#:[id number] Vancomycin Inj 700 MG In NS Inj 0 / 0 257 / 257 250 ML @ 250 mls/hr IV.SIG DAILY@0200 [facility] Rx#:[id number] Oral 442 / 442 Other: # Voids 2 Date of Last Bowel Movement 03/15/18 03/15/18 Laboratory Results - last 24 hr 03/15/18 03/15/18 03/15/18 21:10 21:10 21:15 WBC 10.3 RBC 4.74 Hgb 12.6 L Hct 39.8 MCV 83.9 MCH 26.6 L MCHC 31.7 L RDW 14.3 Plt Count 351 MPV 8.4 Neut % (Auto) 65.5 Lymph % (Auto) 23.0 [place] % (Auto) 7.3 Eos % (Auto) 3.0 Baso % (Auto) 1.2 Neut # (Auto) 6.7 Lymph # (Auto) 2.4 [place] # (Auto) 0.8 Eos # (Auto) 0.3 Baso # (Auto) 0.1 WBC Differential . Differential Comment Auto diff final ESR Sodium 142 Potassium 3.4 L Chloride 105 Carbon Dioxide 25.2 Anion Gap 12 BUN 20 H Creatinine 0.81 Estimated GFR Greater than 89 Random Glucose 116 H Lactic Acid Calcium 9.0 Total Bilirubin 0.3 AST 15 ALT 16 Alkaline Phosphatase 68 C-Reactive Protein 11.00 H Total Protein 7.6 Albumin 2.7 L 03/15/18 03/15/18 21:15 21:15 WBC RBC Hgb Hct MCV MCH MCHC RDW Plt Count MPV Neut % (Auto) Lymph % (Auto) [place] % (Auto) Eos % (Auto) Baso % (Auto) Neut # (Auto) Lymph # (Auto) [place] # (Auto) Eos # (Auto) Baso # (Auto) WBC Differential Differential Comment ESR 83 H Sodium Potassium Chloride Carbon Dioxide Anion Gap BUN Creatinine Estimated GFR Random Glucose Lactic Acid 1.3 Calcium Total Bilirubin AST ALT Alkaline Phosphatase C-Reactive Protein Total Protein Albumin Microbiology 03/15/18 21:18 Gram Stain - Final Wound - Leg Wound Culture - Preliminary Immature growth - reincubate Impressions Chest X-Ray 03/15/18 21:01 CONCLUSION: The lungs are clear. Tibia/Fibula X-Ray 03/15/18 21:09 CONCLUSION: Abnormal appearance to the soft tissues of the calf. Irregular skin medially. Irregular hyperdensity in the posterior soft tissues of uncertain significance. Periosteal reaction in the mid fibula is nonspecific and could be reactive or due to osteomyelitis. Tibia/Fibula X-Ray 03/15/18 21:09 CONCLUSION: Prominent edema/induration of the soft tissues of the leg. The osseous structures are intact. Lower Extremity MRI 03/16/18 00:00 CONCLUSION: 1. Superficial wound lateral aspect of the leg that has extended down to the muscle with minimal myositis 2. Generalized subcutaneous edema.
--- NOTE | 2018-03-16 15:57 | MB ---
cc: Meena Soria MD DATE: 03/16/2018 CONSULTING PHYSICIAN: Meena Soria MD, vascular surgery. REASON FOR CONSULTATION: Ulcers of the left leg, peripheral vascular disease, chronic venous stasis. HISTORY OF PRESENT ILLNESS: This 72-year-old male with a complex prior medical history comes through the emergency department for evaluation of pain in both legs and wounds of the left leg. The patient states that he has had bilateral leg wounds over about the last 6 months and this has been worsening. It was accompanied by drainage and fever and chills. The patient has not sought any treatment and a question arose about any vascular implications. PAST MEDICAL HISTORY: CHF, hyperlipidemia. PAST SURGICAL HISTORY: Unknown. SOCIAL HISTORY: The patient does not smoke but used to. He does not drink. PHYSICAL EXAMINATION: GENERAL: Reveals 72-year-old male. HEENT: Normocephalic. No trauma to the head. Pupils equal, reactive. Extraocular muscles intact. NECK: Bilateral carotid pulses and right-sided carotid bruit of 3/6. CHEST: Bilateral breath sounds, decreased over both lung [place]. The patient clearly was a smoker, so he has a moderate degree of COPD. HEART: Regular rate and rhythm. ABDOMEN: Soft. Active bowel sounds. EXTREMITIES: The patient actually has bilateral palpable femoral pulses and then no distal pulses on palpation. He has dopplerable popliteal pulses, and very weak posterior tibial by Doppler. 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 In addition, the patient has large ulcers on the left leg medial and lateral aspects. Along the lateral aspect, it is going really deep, perhaps even to the bone, and on the medial aspect, it is shallow. In addition, the patient has smaller ulcers over the right lower leg. He has swelling over both feet and clearly infection of the toenails, probably a combination of fungal and bacterial. NEUROLOGIC: The patient is grossly neurologically intact. IMPRESSION AND RECOMMENDATIONS: A patient with chronic venous stasis, chronic venous insufficiency, cellulitis, edema of both legs with organized changes and deep ulcers. Some of this may be going all the way down to the bone on the left side. At this point, the majority of the patient's problem as far as ulcers are concerned is predicated by venous stasis rather than arterial problems. However, clearly arterial insufficiency will be contributing to the same as far as the ability to heal the ulcers once these occur. At this point, we will do a CTA with runoff to see what the blood flow is to the feet and then decide if any remedy can be applied. The patient is not a candidate for any surgery below the level of the knee as it is, but he may be a candidate for a combination of open and endovascular intervention. I suspect patient will likely have occlusion or severe stenoses of both SFAs considering the drop off of the pulse below the groin but we will see what the CTA shows and go from there. Thank you very much for the referral. MD YAN Vivas/sindi , 03:11 PM , 03:20 PM BERT
[2018-03-16] MEDS: Vancomycin Inj 1,500 MG in Sodium Chlor 0.9% Inj 500 ML IV.SIG SCH (18:28)
--- NOTE | 2018-03-16 18:29 | MB ---
cc: Brayden Nino MD,Dread Palumbo MD DATE: 03/16/2018 REQUESTING PHYSICIAN: Dread Yeh MD REASON FOR CONSULTATION: Possible fibular osteomyelitis with chronic wounds. HISTORY OF PRESENT ILLNESS: This is a 72-year-old white male who was admitted to the hospital with chronic lower extremity wounds. The patient is a poor historian. He tells me that he has had the wounds on his legs for 9 years. The edema and the wounds were worsening and therefore, he presented to the emergency department for evaluation. He has been having drainage coming from the legs, particularly the left leg where he has 2 ulcerations, including a large ulceration measuring approximately 8 x 6 cm at the lateral aspect and another one at the inner posterior tibia of approximately 4 x 4 cm. The legs are very dry and have hypertrophic tissue and superficial peeling of the skin. He denies fever, chills, nausea or vomiting. He is afebrile. His white blood cell count is normal. An MRI of the left leg shows a superficial wounds on the lateral aspect of the leg which is extending down to the muscle and has minimal myositis and generalized subcutaneous edema. No mention of osteomyelitis of the fibula is noted. PAST MEDICAL HISTORY: Hyperlipidemia, congestive heart failure. The patient also reports that he has had asthma in the past. ALLERGIES: NO KNOWN DRUG ALLERGIES. MEDICATIONS: Norvasc, Lasix, morphine sulfate p.r.n., piperacillin/tazobactam, Renee-Colace, vancomycin. SOCIAL HISTORY: No tobacco use. The patient stopped smoking cigarettes 10 years ago. No alcohol use. No illicit drugs. FAMILY HISTORY: Noncontributory. REVIEW OF SYSTEMS: All systems have been reviewed and are negative. PHYSICAL EXAMINATION: GENERAL: He is a well-developed male who is in no acute distress. He is awake, alert and oriented. VITAL SIGNS: Temperature 99.2, BP 186/79, respirations 20, heart rate 72. HEENT: Head is atraumatic. Extraocular movements are grossly intact. Pupils reactive to light. No icterus. Oropharynx, mucosa moist, very poor dentition with multiple erosions of the teeth. NECK: Supple without adenopathy. LUNGS: Decreased breath sounds throughout. HEART: Regular S1, S2. No murmurs, rubs or gallops. ABDOMEN: Bowel sounds present. Soft, nontender. Bowel sounds are diminished. RECTAL: Not performed. EXTREMITIES: Both lower extremities have chronic superficial ulcerations, peeling of the skin and hypertrophic changes. There is a large ulceration at the lateral aspect of the left leg and also, the inner aspect has another ulceration of a smaller size. There is weeping of the crater of the ulcer. Both feet have edema. The feet are very poorly kept and the toenail of the great toe is curled over onto the second toe and measures at least 8 inches long. The right tibia has a superficial ulceration and peeling dry skin. SKIN: No diffuse rash. NEUROLOGIC: No gross focal finding. PSYCHIATRIC: The patient is calm and cooperative. LABORATORY DATA: WBC 10.3, platelet count 351, 65% neutrophils, 23% lymphocytes, 7% monocytes. ESR 83. Creatinine 0.81, BUN 20, estimated GFR 89. Liver function tests normal. C-reactive protein 11.0. IMPRESSION: 1. Bilateral lower extremity cellulitis with severe involvement of the left where the patient has ulcerations. 2. Chronic ulcerations of the left leg with MRI changes suggesting myositis. Culture pending. RECOMMENDATIONS: 1. Continue vancomycin. 2. Continue piperacillin/tazobactam. 3. Monitor the wound culture. 4. Monitor blood culture. 5. Monitor clinical response to antibiotics. Thank you for this consultation. I will monitor the patient's progress along with you and make further recommendations if necessary. MD MARGUERITE Horton/sindi , 03:37 PM , 03:54 PM
--- NOTE | 2018-03-16 20:50 | MB ---
cc: Boy StanfordM DATE: 03/16/2018 REASON FOR CONSULTATION: Evaluation and possible management of bilateral lower extremity wounds and severely incurvated thickened toenail infection. REQUESTING PROVIDER: Dread Yeh MD CHIEF COMPLAINT: Bilateral lower extremity ulcers and pain of toes. HISTORY OF PRESENT ILLNESS: This is a 72-year-old male who is not the best historian regarding the onset of his condition, but apparently he has a longstanding history of draining wounds greater than 6 months. He noticed over the past few weeks, increased discharge and drainage. He tries to keep them wrapped as best he can and elevates them. He feels as though subjectively he has a fever from time to time, but he denies any past medical history of heart disease and heart failure. He lives alone. 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 MEDICAL HISTORY: CHF, hyperlipidemia. SURGICAL HISTORY: No mention of surgical history. ALLERGIES: None listed. OUTPATIENT MEDICATIONS: Reviewed. SOCIAL HISTORY: Denies habits. Stopped smoking cigarettes 10 years ago. INPATIENT MEDICATIONS: Medications p.r.n.: 1. Norvasc. 2. Bisacodyl. 3. Clonidine. 4. Lasix. 5. Zosyn. 6. Pravachol. 7. Renee-Colace. 8. Senokot 9. Vancomycin. PHYSICAL EXAMINATION: In general, this is an alert and oriented male seen at bedside exhibiting nonlabored respiration. He has poor dental hygiene. He is verbal and appropriate. Bilateral lower extremities are examined. There are noted to be hemosiderin type deposits, evidence of venous stasis disease, starting at the proximal two-thirds of the knee down. There were mixed fibrotic serous draining wounds of the distal, medial and lateral leg. There was a mild odor. The soft tissue envelope is not tight. There is no obvious crepitus. There is mild pain upon pressure to these areas. Wound depth is questionable specifically of the left medial malleolus. There is no obvious tendon or bone exposed; however, it appears to go deep, at least to deep fascia. Expansile venous stasis type wounds with irregular borders noted diffusely of the bilateral distal extremities. Average measurement is approximately 12 cm x 15-20 cm. The patient is able perform dorsiflexion of the bilateral ankles. Distal pulses are hard to palpate. The extremities warm. There are severely elongated, thickened nails with evidence of incurvation and pain. The nails appear to be ingrowing, specifically of the hallux into the dorsal aspect of the second digit causing an abrasion or pre-ulcerative lesion. Upon debriding the nails, there is no obvious subungual abscess. It appears to be solely a fungal infection within the nails. The digits appear to have a decreased ability to perform range of motion. This appears to be a chronic finding. However, the hindfoot and ankle is intact with relatively good muscle strength. Sensation appears to be decreased to light touch, but intact to deep pressure and noxious stimuli. LABORATORY DATA: White blood cell 10.3, hemoglobin and hematocrit 12 and 39, ESR 83, platelet count is 351. Chem-7: Sodium is 142, potassium 3.4, chloride 105, CO2 25.2, BUN is 20. Random glucose is 116, AST 15. C-reactive protein 11. Microbial findings: Gram stain preliminary growth is immature, reincubate. Aerobic blood culture ordered and pending. X-ray of the left tib-fib: Appearance of soft tissue irregularity in the calf medially, irregular hyperdensity in the posterior soft tissue, periosteal reaction of the mid fibula nonspecific, could to be reactive or due to osteomyelitis. Right tib-fib x-ray: Prominent edema, induration of the soft tissues of the leg, osseous structures intact. No evidence of periosteal reaction or focal bony erosive process. MRI left lower leg: Superficial wound on the lateral aspect of the leg has extended down to the muscle with minimal myositis, generalized subcutaneous edema. No mention of osteomyelitis per radiologist. ASSESSMENT AND PLAN: Bilateral venous stasis ulcers, cellulitis, partial thickness, possible borderline full-thickness wounds bilateral lower extremities, ankle distal leg, ingrown toenails with secondary fungal infection. My recommendation is to continue a shaving cream bath, which the nursing will provide to debulk the superficial skin, Adaptic, ABD pad and a light compressive wrap will be placed around the bilateral legs to provide compression as we await vascular evaluation and workup. Due to the severity of the toenails and the discomfort, at bedside, debridement took place, relieving some of the pressure. This was better served as an outpatient service, which we can definitely arrange at a later date. Pending vascular workup, we may recommend a more formal operative debridement of the extremities and then further management from our [facility]. Podiatry will continue to follow. Thank you for this consultation. LUCIANA Dixon , 07:51 PM , 08:03 PM
[2018-03-17] MEDS: Piperacil/Tazo 3.375 GM Premix 50 ML IV.SIG SCH ×4 (04:32→22:38)
[2018-03-17] MEDS: Vancomycin Inj 1,500 MG in Sodium Chlor 0.9% Inj 500 ML IV.SIG SCH ×2 (04:33→17:00)
--- NOTE | 2018-03-17 07:09 | P.PNWCN ---
Wound Care Nurse Consult Description: Consult for wound management of [place] [facility] per Dr Robert Recommendation: Refer to Podiatry orders for bilateral lower extremities. Additional information: *Patient not seen for bilateral lower extremities as Podiatry has seen patient and made his recommendations. Please follow Dr Stanford's orders.
[2018-03-17] MEDS: Furosemide 40 MG Tablet PO SCH (08:35)
[2018-03-17] MEDS: amLODIPine 5 MG Tablet PO SCH (08:35)
[2018-03-17] MEDS: Senna/Docusate Sodium 8.6/50 MG Tablet PO SCH ×2 (08:35→22:40)
--- NOTE | 2018-03-17 11:26 | CT ---
EXAM DATE: 03/17/2018 11:14 AM EDT AGE/SEX: 72 years / Male INDICATIONS: Large ulcers on both legs, pain worse in left leg. CLINICAL DATA: This is the patient's initial encounter. Patient reports that signs and symptoms have been present for 1 day and indicates a pain score of 6/10. MEDICAL/SURGICAL HISTORY: Congestive heart failure. None. RADIATION DOSE: 10.76 CTDI (mGy) COMPARISON: No prior exams available for comparison. TECHNIQUE: Volumetric scanning was performed using a multi-row detector CT scanner during bolus infu allyssa of 97 ml Omnipaque 350 (iohexol) nonionic water-soluble contrast as a single exam dose. The d ny was post processed with a variety of visualization algorithms including full volume maximum inten sity projection, multi-planar sliding thin slab reformation, curved planar reformation, and surface r endering techniques. Using automated exposure control and adjustment of the mA and/or kV according t o patient size, radiation dose was kept as low as reasonably achievable to obtain optimal diagnostic quality images. DICOM format image data is available electronically for review and comparison. FINDINGS: The abdominal aorta and iliacs are widely patent with mild patchy atheromatous irregularity and intim al calcification. The aortic visceral vessels are intact. In the pelvis, the hypogastrics are patent bilaterally. The common femoral arteries are relatively healthy in appearance and the profundas are p atent bilaterally. The superficial femoral arteries are occluded bilaterally. On the right side, the popliteal artery re constitutes just above the knee joint level as a moderately diseased vessel. The below-knee popliteal is relatively healthy in appearance and leads to adequate right calf runoff via peroneal and anterio r tibial vessels. On the contralateral left side, the popliteal reconstitutes just above the knee rayo nt level, however the entire vessel is diseased. The trifurcation is intact. Adequate two-vessel runo ff is present via anterior and posterior tibial arteries. Elsewhere on the exam, note is made of moderate gallbladder distention and multiple gallstones and ex tensive gallbladder sludge. A tiny fat-containing umbilical hernia is present. Bilateral inguinal her nias are noted, on the right side notable for loops of nondilated bowel extending down into the scrot um. No definite evidence of incarceration or bowel obstruction. Cellulitic changes are present throug hout the lower legs bilaterally. CONCLUSION: 1. No significant aortoiliac inflow stenosis 2. Bilateral SFA occlusions. 3. Below-knee popliteal is a satisfactory target on the right 4. Distalmost left popliteal and trifurcation are relatively healthy in appearance 5. Large right-sided bowel containing inguinal hernia. Fat-containing left inguinal hernia. Electronically signed by: Kingsley Truong MD 03/17/2018 11:25 AM EDT
--- NOTE | 2018-03-17 11:30 | P.PNIM ---
Subjective Interval history: 72-year-old male with a past medical history of CHF and hyperlipidemia presents to the emergency department for evaluation of lower extremity pain and wounds. Patient states he has had wounds on his lower extremities bilaterally for the past 6 months. He states it has been worsening over that timeframe. He states there is a discharge and drainage noted. He reports subjective fever/chills. Reports pain with ambulation. Denies chest pain or shortness of breath. No abdominal pain. No nausea/vomiting/diarrhea. 03-16 SEEN BY ORTHO NO SURGERY YET VASCULAR, ID, PODIATRY HAVE NOW BEEN CONSULTED WOUNDS HAVE BEEN THERE AT LEAST 6 PLUS MONTHS IF PATIENT HISTORY IS CORRECT PRN CATAPRES START NORVASC 5 MG PO DAILY FOR HTN 03-17 SEEN BY PODIATRY, ID AND VASCULAR HAD ANGIOGRAM RESULTS PENDING ANTIBIOTICS PER ID SURGERY PER VASCULAR NEEDS PT AND OT PATIENT WAS UPSET THEY WERE TRYING TO MOVE HIM- EXPLAINED HE NEEDS TO BE MOVED REGARDING THIS AND NOT LIE IN BED AND GET WEAKER AM LABS Physical Exam Vital signs: Vital Signs 03/16/18 12:00 03/16/18 15:41 03/16/18 16:00 Temperature 98.9 F 98.7 F Pulse Rate 72 68 Respiratory Rate 18 20 Blood Pressure 194/84 H 156/72 H 162/72 H Pulse Oximetry 95 95 03/16/18 20:00 03/17/18 00:00 03/17/18 04:00 Temperature 98.7 F 99.4 F 98.8 F Pulse Rate 63 73 63 Respiratory Rate 18 20 18 Blood Pressure 140/77 164/78 H 154/69 H Pulse Oximetry 96 96 96 03/17/18 08:00 Temperature 98.0 F Pulse Rate 64 Respiratory Rate 18 Blood Pressure 140/78 Pulse Oximetry 96 Intake & Output 03/16/18 03/17/18 03/17/18 18:59 06:59 18:59 Intake Total 357 / 357 615 / 615 565 / 565 Output Total 1150 / 1150 300 / 300 400 / 400 Balance -793 / -793 315 / 315 165 / 165 Intake: IV 357 / 357 615 / 615 565 / 565 Zosyn 3.375 GM Premix 50 ML @ 100 / 100 100 / 100 50 / 50 100 mls/hr IV.SIG Q6H [facility] Rx#: [id number] Vancomycin Inj 700 MG In NS Inj 257 / 257 250 ML @ 250 mls/hr IV.SIG DAILY@0200 [facility] Rx#:[id number] Vancomycin Inj 1,500 MG In NS 515 / 515 515 / 515 Inj 500 ML @ 250 mls/hr IV.SIG Q12H [facility] Rx#:[id number] Output: Urine 1150 / 1150 300 / 300 400 / 400 Other: Date of Last Bowel Movement 03/15/18 03/16/18 Narrative: Gen.: No acute distress Awake alert and oriented x3 talkative and cooperative Head: Normocephalic. Atraumatic. EENT: Pupils equal round and reactive to light. Nose without drainage. Airway intact. Throat without injection. EOMI Neck is supple tongue is midline no JVD Cardiovascular: Regular rate and rhythm. No murmurs, rubs or gallops. S1-S2 no S3 or S4 Respiratory: Lungs clear to auscultation bilaterally. No wheezes or rhonchi. Abdomen: Soft, nontender, nondistended. No peritoneal signs. Musculoskeletal: Bilateral lower extremity edema with chronic skin changes. Erythema and several large ulcerations with areas of necrotic tissue on the bilateral lower extremities. Purulent drainage that is foul-smelling. Skin: See above Neuro: Sensory and motor grossly intact. Cranial nerves II through XII grossly intact. Insight and judgment is limited Mood and behavior somewhat inappropriate Results - Labs CBC & Chem 7: 03/15/18 21:10 03/15/18 21:10 Microbiology 03/16/18 01:15 Blood - Peripheral Aerobic Blood Culture - Preliminary No growth in 1 day 03/16/18 01:15 Blood - Peripheral Anaerobic Blood Culture - Preliminary No growth in 1 day 03/16/18 01:30 Blood - Peripheral Aerobic Blood Culture - Preliminary No growth in 1 day 03/16/18 01:30 Blood - Peripheral Anaerobic Blood Culture - Preliminary No growth in 1 day 03/15/18 21:18 Wound - Leg Gram Stain - Final 03/15/18 21:18 Wound - Leg Wound Culture - Preliminary Immature growth - reincubate - Imaging Impressions Lower Extremity MRI 03/16/18 00:00 CONCLUSION: 1. Superficial wound lateral aspect of the leg that has extended down to the muscle with minimal myositis 2. Generalized subcutaneous edema. Assessment and Plan - Plan 1. Bilateral lower extremity wounds/? Osteomyelitis Vancomycin/Zosyn MRI left lower extremity pending as x-ray showed periosteal reaction in the mid fibula which may be secondary to osteomyelitis CRP elevated Orthopedic surgery consulted, appreciate recommendations Wound, blood cultures pending Wound care consulted 2. CHF Continue home Lasix 3. Hyperlipidemia Continue home statin HYPERTENSION - PRN CATAPRES AND SCHEDULED NORVASC 5MG PO DAILY AM LABS DIET DM CARDIAC WILL NEED ID, VASCULAR AND PODIATRY EVALUATIONS- HAS BEEN SEEN BY ALL HAD ANGIOGRAM OF LE TODAY 03-17 -RESULTS PENDING WILL GET MRI OF LEGS- HAS BEEN DONE AND REVIEWED Code Status: FULL CODE Discussed Condition With: RN AND PT AND CM Discharge Planning: PENDING CLEARANCE BY ALL
--- NOTE | 2018-03-17 12:51 | P.PNVS ---
Subjective Subjective/Hospital Course: Patient and diagnostic studies evaluated Full consult dictated We will continue to follow CTA with runoff ordered Thanks Ivette 03/17/2018 The patient actually has bilateral palpable femoral pulses and then no distal pulses on palpation. He has dopplerable popliteal pulses, and below that, I cannot detect any pulse. The patient has severe stigmata of chronic venous stasis and chronic venous insufficiency signified by liposclerosis, hemosiderosis, organized edema and early beginnings of elephantiasis. In addition, the patient has large ulcers on the left leg medial and lateral aspects. Along the lateral aspect, it is going really deep, perhaps even to the bone, and on the medial aspect, it is shallow. In addition, the patient has smaller ulcers over the right lower leg. He has swelling over both feet and clearly infection of the toenails, probably a combination of fungal and bacterial. CTA with runoff confirms the clinical impression. Patient has good inflow with scattered minimal disease in iliac and common femoral arteries and then complete occlusion of bilateral SFAs. Popliteal arteries reconstitute just above the knee and left one is diseased more than the right one. From the ear patient has flow in all 3 vessels but these a small throughout Patient will need left and right femoral-popliteal bypass but I would wait for another few days for these ulcers to clean up because we are likely to put PTFE graft and if this got infected it would be pretty catastrophic issue to deal with. We will give patient another few days of antibiotics and local wound care and then proceed next week with a left femoral-popliteal bypass. Time patient will require basic cardiac workup is usual for vascular surgery Objective Vital Signs / I&O: Vital Signs 03/16/18 15:41 03/16/18 16:00 03/16/18 20:00 Temperature 98.7 F 98.7 F Pulse Rate 68 63 Respiratory Rate 20 18 Blood Pressure 156/72 H 162/72 H 140/77 Pulse Oximetry 95 96 03/17/18 00:00 03/17/18 04:00 03/17/18 08:00 Temperature 99.4 F 98.8 F 98.0 F Pulse Rate 73 63 64 Respiratory Rate 20 18 18 Blood Pressure 164/78 H 154/69 H 140/78 Pulse Oximetry 96 96 96 03/17/18 12:00 Temperature 98.0 F Pulse Rate 71 Respiratory Rate 18 Blood Pressure 131/62 Pulse Oximetry 93 L Intake & Output 03/16/18 03/17/18 03/17/18 18:59 06:59 18:59 Intake Total 357 / 357 615 / 615 565 / 565 Output Total 1150 / 1150 300 / 300 400 / 400 Balance -793 / -793 315 / 315 165 / 165 Intake: IV 357 / 357 615 / 615 565 / 565 Zosyn 3.375 GM Premix 50 ML @ 100 / 100 100 / 100 50 / 50 100 mls/hr IV.SIG Q6H [facility] Rx#: [id number] Vancomycin Inj 700 MG In NS Inj 257 / 257 250 ML @ 250 mls/hr IV.SIG DAILY@0200 [facility] Rx#:[id number] Vancomycin Inj 1,500 MG In NS 515 / 515 515 / 515 Inj 500 ML @ 250 mls/hr IV.SIG Q12H [facility] Rx#:[id number] Output: Urine 1150 / 1150 300 / 300 400 / 400 Other: Date of Last Bowel Movement 03/15/18 03/16/18 Microbiology 03/15/18 21:18 Gram Stain - Final Wound - Leg Wound Culture - Final 03/16/18 01:15 Aerobic Blood Culture - Preliminary Blood - Peripheral No growth in 1 day Anaerobic Blood Culture - Preliminary No growth in 1 day 03/16/18 01:30 Aerobic Blood Culture - Preliminary Blood - Peripheral No growth in 1 day Anaerobic Blood Culture - Preliminary No growth in 1 day Impressions Chest X-Ray 03/15/18 21:01 CONCLUSION: The lungs are clear. Tibia/Fibula X-Ray 03/15/18 21:09 CONCLUSION: Abnormal appearance to the soft tissues of the calf. Irregular skin medially. Irregular hyperdensity in the posterior soft tissues of uncertain significance. Periosteal reaction in the mid fibula is nonspecific and could be reactive or due to osteomyelitis. Tibia/Fibula X-Ray 03/15/18 21:09 CONCLUSION: Prominent edema/induration of the soft tissues of the leg. The osseous structures are intact. Lower Extremity MRI 03/16/18 00:00 CONCLUSION: 1. Superficial wound lateral aspect of the leg that has extended down to the muscle with minimal myositis 2. Generalized subcutaneous edema. Aorta w/Runoff CTA 03/17/18 00:03 CONCLUSION: 1. No significant aortoiliac inflow stenosis 2. Bilateral SFA occlusions. 3. Below-knee popliteal is a satisfactory target on the right 4. Distalmost left popliteal and trifurcation are relatively healthy in appearance 5. Large right-sided bowel containing inguinal hernia. Fat-containing left inguinal hernia.
[2018-03-17 14:26] LABS: Baso # (Auto) 0.1 th/mm3 (0.0-0.2); Baso % (Auto) 0.7 % (0.0-2.0); Eos # (Auto) 0.4 th/mm3 (0.0-0.4); Eos % (Auto) 3.8 % (0.0-4.0); Hemoglobin 11.9 gm/dL (13.0-17.0); Lymph # (Auto) 1.9 th/mm3 (1.0-4.8); Lymph % (Auto) 18.9 % (9.0-44.0); Mean Corpuscular HGB Conc 32.1 % (32.0-36.0); Mean Corpuscular Hemoglobin 26.7 pg (27.0-34.0); Mean Corpuscular Volume 83.3 fL (80.0-100.0); Mean Platelet Volume 7.9 fL (7.0-11.0); Mono # (Auto) 0.9 th/mm3 (0.0-0.9); Mono % (Auto) 8.8 % (0.0-8.0); Neut # (Auto) 6.8 th/mm3 (1.8-7.7); Neut % (Auto) 67.8 % (16.0-70.0); Platelet Count 335 th/mm3 (150-450); Red Blood Count 4.44 mil/mm3 (4.50-5.90); Red Cell Distribution Width 14.5 % (11.6-17.2); White Blood Count 10.1 th/mm3 (4.0-11.0)
[2018-03-17 14:38] LABS: INR 1.1 Ratio
[2018-03-17 14:44] LABS: Albumin 2.5 g/dL (3.4-5.0); Anion Gap 8 meq/L (5-15); Aspartate Aminotransferase 13 U/L (15-37); Blood Urea Nitrogen 13 mg/dL (7-18); Calcium 8.7 mg/dL (8.5-10.1); Carbon Dioxide 28.6 meq/L (21.0-32.0); Chloride 105 meq/L (98-107); Glomerular Filtration Rate Greater Than 89 mL/min (>89); Glucose,Random 120 mg/dL (74-106); Potassium 3.4 meq/L (3.5-5.1); Sodium 142 meq/L (136-145)
[2018-03-17 14:45] LABS: Alanine Aminotransferase 16 U/L (12-78); Phosphorus 2.9 mg/dL (2.5-4.9)
[2018-03-17 14:54] LABS: Alkaline Phosphatase 62 U/L (45-117); Free T4 (Free Thyroxine) 0.96 ng/dL (0.76-1.46); Total Protein 7.1 g/dL (6.4-8.2)
--- NOTE | 2018-03-17 16:16 | P.PNID ---
Subjective Remarks: Patient has no complaints. He denies fever or chills. No pain in the legs. Dressings in place at both tibias. Wound culture pending. 72-year-old white male who was admitted to the hospital with chronic lower extremity wounds. The patient is a poor historian. He tells me that he has had the wounds on his legs for 9 years. The edema and the wounds were worsening and therefore, he presented to the emergency department for evaluation. He has been having drainage coming from the legs, particularly the left leg where he has 2 ulcerations, including a large ulceration measuring approximately 8 x 6 cm at the lateral aspect and another one at the inner posterior tibia of approximately 4 x 4 cm. The legs are very dry and have hypertrophic tissue and superficial peeling of the skin. Past Medical History: PAST MEDICAL HISTORY: Hyperlipidemia, congestive heart failure. The patient also reports that he has had asthma in the past. Allergies/Adverse Reactions: Allergies No Known Allergies Allergy (Verified 03/15/18 21:47) Objective Vital Signs 03/16/18 20:00 03/17/18 00:00 03/17/18 04:00 Temperature 98.7 F 99.4 F 98.8 F Pulse Rate 63 73 63 Respiratory Rate 18 20 18 Blood Pressure 140/77 164/78 H 154/69 H Pulse Oximetry 96 96 96 03/17/18 08:00 03/17/18 12:00 Temperature 98.0 F 98.0 F Pulse Rate 64 71 Respiratory Rate 18 18 Blood Pressure 140/78 131/62 Pulse Oximetry 96 93 L Intake & Output 03/16/18 03/17/18 03/17/18 18:59 06:59 18:59 Intake Total 357 / 357 615 / 615 565 / 565 Output Total 1150 / 1150 300 / 300 400 / 400 Balance -793 / -793 315 / 315 165 / 165 Intake: IV 357 / 357 615 / 615 565 / 565 Zosyn 3.375 GM Premix 50 ML @ 100 / 100 100 / 100 50 / 50 100 mls/hr IV.SIG Q6H RICKI Rx#: [id number] Vancomycin Inj 700 MG In NS Inj 257 / 257 250 ML @ 250 mls/hr IV.SIG DAILY@0200 RICKI Rx#:[id number] Vancomycin Inj 1,500 MG In NS 515 / 515 515 / 515 Inj 500 ML @ 250 mls/hr IV.SIG Q12H [facility] Rx#:[id number] Output: Urine 1150 / 1150 300 / 300 400 / 400 Other: Date of Last Bowel Movement 03/15/18 03/16/18 03/17/18 # Bowel Movements 1 03/15/18 21:18 Wound - Leg Gram Stain - Final 03/15/18 21:18 Wound - Leg Wound Culture - Final 03/16/18 01:15 Blood - Peripheral Aerobic Blood Culture - Preliminary No growth in 1 day 03/16/18 01:15 Blood - Peripheral Anaerobic Blood Culture - Preliminary No growth in 1 day 03/16/18 01:30 Blood - Peripheral Aerobic Blood Culture - Preliminary No growth in 1 day 03/16/18 01:30 Blood - Peripheral Anaerobic Blood Culture - Preliminary No growth in 1 day Lab - Hematology Results 03/15/18 03/15/18 03/17/18 21:10 21:15 13:34 WBC 10.3 10.1 RBC 4.74 4.44 L Hgb 12.6 L 11.9 L Hct 39.8 37.0 L MCV 83.9 83.3 MCH 26.6 L 26.7 L MCHC 31.7 L 32.1 RDW 14.3 14.5 Plt Count 351 335 MPV 8.4 7.9 Neut % (Auto) 65.5 67.8 Lymph % (Auto) 23.0 18.9 [place] % (Auto) 7.3 8.8 H Eos % (Auto) 3.0 3.8 Baso % (Auto) 1.2 0.7 Neut # (Auto) 6.7 6.8 Lymph # (Auto) 2.4 1.9 [place] # (Auto) 0.8 0.9 Eos # (Auto) 0.3 0.4 Baso # (Auto) 0.1 0.1 WBC Differential . . Differential Comment Auto diff final Auto diff final ESR 83 H Lab - Chemistry Results 03/15/18 03/15/18 03/15/18 21:10 21:15 21:15 Sodium 142 Potassium 3.4 L Chloride 105 Carbon Dioxide 25.2 Anion Gap 12 BUN 20 H Creatinine 0.81 Estimated GFR Greater than 89 Random Glucose 116 H Lactic Acid 1.3 Calcium 9.0 Phosphorus Magnesium Total Bilirubin 0.3 AST 15 ALT 16 Alkaline Phosphatase 68 C-Reactive Protein 11.00 H Total Protein 7.6 Albumin 2.7 L TSH Free T4 03/17/18 13:34 Sodium 142 Potassium 3.4 L Chloride 105 Carbon Dioxide 28.6 Anion Gap 8 BUN 13 Creatinine 0.73 Estimated GFR Greater than 89 Random Glucose 120 H Lactic Acid Calcium 8.7 Phosphorus 2.9 Magnesium 2.0 Total Bilirubin 0.2 AST 13 L ALT 16 Alkaline Phosphatase 62 C-Reactive Protein Total Protein 7.1 Albumin 2.5 L TSH 1.370 Free T4 0.96 Imaging: ITS Impressions Chest X-Ray 03/15/18 21:01 CONCLUSION: The lungs are clear. Tibia/Fibula X-Ray 03/15/18 21:09 CONCLUSION: Prominent edema/induration of the soft tissues of the leg. The osseous structures are intact. Lower Extremity MRI 03/16/18 00:00 CONCLUSION: 1. Superficial wound lateral aspect of the leg that has extended down to the muscle with minimal myositis 2. Generalized subcutaneous edema. Aorta w/Runoff CTA 03/17/18 00:03 CONCLUSION: 1. No significant aortoiliac inflow stenosis 2. Bilateral SFA occlusions. 3. Below-knee popliteal is a satisfactory target on the right 4. Distalmost left popliteal and trifurcation are relatively healthy in appearance 5. Large right-sided bowel containing inguinal hernia. Fat-containing left inguinal hernia. Physical Exam: PHYSICAL EXAMINATION: GENERAL: No acute distress. HEENT: Head is atraumatic. Extraocular movements are grossly intact. Pupils reactive to light. No icterus. Oropharynx, mucosa moist, very poor dentition with multiple erosions of the teeth. NECK: Supple without adenopathy. LUNGS: Decreased breath sounds. HEART: Regular S1, S2. No murmurs, rubs or gallops. ABDOMEN: Bowel sounds present. Soft, nontender. EXTREMITIES: Both lower extremities have chronic superficial ulcerations, peeling of the skin and hypertrophic changes. There is a large ulceration at the lateral aspect of the left leg and also, the inner aspect has another ulceration of a smaller size. Both feet have edema. SKIN: No diffuse rash. NEUROLOGIC: No gross focal finding. PSYCHIATRIC: Calm and cooperative Assessment and Plan - Plan IMPRESSION: 1. Bilateral lower extremity cellulitis. 2. Chronic ulcerations of the left leg with MRI changes suggesting myositis. 3. Venostasis. RECOMMENDATIONS: 1. Continue vancomycin. 2. Continue piperacillin/tazobactam. 3. Add p.o. Diflucan. 4. Monitor blood culture. 5. Monitor clinical response to antibiotics.
[2018-03-17] MEDS ORDERED: Pharmacy Ordered Lab Info OTHER ONE (16:45)
[2018-03-17 17:12] LABS: Hemoglobin A1c 6.3 % (4.3-6.0)
[2018-03-18] MEDS: Piperacil/Tazo 3.375 GM Premix 50 ML IV.SIG SCH ×4 (03:22→21:05)
[2018-03-18] MEDS: Vancomycin Inj 1,500 MG in Sodium Chlor 0.9% Inj 500 ML IV.SIG SCH ×2 (04:51→16:23)
[2018-03-18] MEDS: Furosemide 40 MG Tablet PO SCH (09:04)
[2018-03-18] MEDS: Senna/Docusate Sodium 8.6/50 MG Tablet PO SCH ×2 (09:04→21:08)
[2018-03-18] MEDS: amLODIPine 5 MG Tablet PO SCH (09:04)
--- NOTE | 2018-03-18 12:12 | P.PNOP ---
Subjective Interval history: Patient is resting in bed in no acute distress. The patient denies having much pain about the bilateral lower extremities. Patient denies shortness of breath or chest pain. Physical Exam Vital signs: Vital Signs 03/17/18 16:00 03/18/18 00:00 03/18/18 04:00 Temperature 97.7 F 98.5 F 97.7 F Pulse Rate 80 62 63 Respiratory Rate 18 18 18 Blood Pressure 146/78 H 154/72 H 156/70 H Pulse Oximetry 93 L 94 L 98 03/18/18 08:00 Temperature 97.3 F L Pulse Rate 58 L Respiratory Rate 14 Blood Pressure 173/78 H Pulse Oximetry 92 L Intake & Output 03/17/18 03/18/18 03/18/18 18:59 06:59 18:59 Intake Total 615 / 615 615 / 615 565 / 565 Output Total 400 / 400 700 / 700 Balance 215 / 215 -85 / -85 565 / 565 Intake: IV 615 / 615 615 / 615 565 / 565 Zosyn 3.375 GM Premix 50 ML @ 100 / 100 100 / 100 50 / 50 100 mls/hr IV.SIG Q6H RICKI Rx#: [id number] Vancomycin Inj 1,500 MG In NS 515 / 515 515 / 515 515 / 515 Inj 500 ML @ 250 mls/hr IV.SIG Q12H RICKI Rx#:[id number] Output: Urine 400 / 400 700 / 700 Other: Date of Last Bowel Movement 03/17/18 # Bowel Movements 1 Narrative: The patient has clean, dry, and intact dressings to the bilateral lower extremities. The patient has chronic hypertrophic skin changes bilaterally to the lower legs and ankles. The patient has 2+ pitting edema to the bilateral feet. The patient has some mild tenderness to palpation about the right calf. The patient moves the bilateral feet and ankles actively. The patient has some loss of sensation to the bilateral feet and ankles. The patient has diminished pulses bilaterally. Results - Labs CBC & Chem 7: 03/17/18 13:34 03/17/18 13:34 Laboratory Results - last 24 hr 03/17/18 03/17/18 03/17/18 13:34 13:34 13:34 WBC 10.1 RBC 4.44 L Hgb 11.9 L Hct 37.0 L MCV 83.3 MCH 26.7 L MCHC 32.1 RDW 14.5 Plt Count 335 MPV 7.9 Neut % (Auto) 67.8 Lymph % (Auto) 18.9 [place] % (Auto) 8.8 H Eos % (Auto) 3.8 Baso % (Auto) 0.7 Neut # (Auto) 6.8 Lymph # (Auto) 1.9 [place] # (Auto) 0.9 Eos # (Auto) 0.4 Baso # (Auto) 0.1 WBC Differential . Differential Comment Auto diff final PT INR Sodium 142 Potassium 3.4 L Chloride 105 Carbon Dioxide 28.6 Anion Gap 8 BUN 13 Creatinine 0.73 Estimated GFR Greater than 89 Random Glucose 120 H Hemoglobin A1c 6.3 H Calcium 8.7 Phosphorus 2.9 Magnesium 2.0 Total Bilirubin 0.2 AST 13 L ALT 16 Alkaline Phosphatase 62 Total Protein 7.1 Albumin 2.5 L TSH 1.370 Free T4 0.96 Vancomycin Trough 03/17/18 03/17/18 13:36 16:15 WBC RBC Hgb Hct MCV MCH MCHC RDW Plt Count MPV Neut % (Auto) Lymph % (Auto) [place] % (Auto) Eos % (Auto) Baso % (Auto) Neut # (Auto) Lymph # (Auto) [place] # (Auto) Eos # (Auto) Baso # (Auto) WBC Differential Differential Comment PT 11.0 INR 1.1 Sodium Potassium Chloride Carbon Dioxide Anion Gap BUN Creatinine Estimated GFR Random Glucose Hemoglobin A1c Calcium Phosphorus Magnesium Total Bilirubin AST ALT Alkaline Phosphatase Total Protein Albumin TSH Free T4 Vancomycin Trough 18.7 H Microbiology 03/16/18 01:15 Blood - Peripheral Aerobic Blood Culture - Preliminary No growth in 2 days 03/16/18 01:15 Blood - Peripheral Anaerobic Blood Culture - Preliminary No growth in 2 days 03/16/18 01:30 Blood - Peripheral Aerobic Blood Culture - Preliminary No growth in 2 days 03/16/18 01:30 Blood - Peripheral Anaerobic Blood Culture - Preliminary No growth in 2 days 03/15/18 21:18 Wound - Leg Gram Stain - Final 03/15/18 21:18 Wound - Leg Wound Culture - Final - Imaging Aorta with runoff CTA results: 1. No significant aortoiliac inflow stenosis 2. Bilateral SFA occlusions. 3. Below-knee popliteal is a satisfactory target on the right 4. Distalmost left popliteal and trifurcation are relatively healthy in appearance 5. Large right-sided bowel containing inguinal hernia. Fat-containing left inguinal hernia. MRI of the left lower leg with and without contrast results: 1. Superficial wound lateral aspect of the leg that has extended down to the muscle with minimal myositis 2. Generalized subcutaneous edema. 3. No obvious signs of osteomyelitis. 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 Medical Decision Making: I have evaluated the patient's recent studies for the bilateral lower extremities and consultation reports from vascular surgery and infectious disease. At this time I do not see any obvious bone infection indicating orthopedic intervention. There does appear to be some vascular insufficiency which is likely the primary contributor to his chronic wounds and skin condition. The patient is scheduled for vascular surgery. Infectious disease is following the patient and has placed the patient on antibiotics. Orthopedics is signing off on this patient unless there is future evidence that would require our services. There will be no need for orthopedic outpatient follow-up for this patient.
--- NOTE | 2018-03-18 12:26 | P.PNIM ---
Subjective Interval history: 72-year-old male with a past medical history of CHF and hyperlipidemia presents to the emergency department for evaluation of lower extremity pain and wounds. Patient states he has had wounds on his lower extremities bilaterally for the past 6 months. He states it has been worsening over that timeframe. He states there is a discharge and drainage noted. He reports subjective fever/chills. Reports pain with ambulation. Denies chest pain or shortness of breath. No abdominal pain. No nausea/vomiting/diarrhea. 8 SEEN BY ORTHO NO SURGERY YET VASCULAR, ID, PODIATRY HAVE NOW BEEN CONSULTED WOUNDS HAVE BEEN THERE AT LEAST 6 PLUS MONTHS IF PATIENT HISTORY IS CORRECT PRN CATAPRES START NORVASC 5 MG PO DAILY FOR HTN 03-17 SEEN BY PODIATRY, ID AND VASCULAR HAD ANGIOGRAM RESULTS PENDING ANTIBIOTICS PER ID SURGERY PER VASCULAR NEEDS PT AND OT PATIENT WAS UPSET THEY WERE TRYING TO MOVE HIM- EXPLAINED HE NEEDS TO BE MOVED REGARDING THIS AND NOT LIE IN BED AND GET WEAKER AM LABS - SEEN BY ALL WILL NEED VASCULAR SURGERY CONSULT CARDIO FOR CLEARANCE DW RN AND PT AND CM ANTIBIOTICS PER ID DW PATIENT AND RN AND CM Physical Exam Vital signs: Vital Signs 03/17/18 16:00 03/18/18 00:00 03/18/18 04:00 Temperature 97.7 F 98.5 F 97.7 F Pulse Rate 80 62 63 Respiratory Rate 18 18 18 Blood Pressure 146/78 H 154/72 H 156/70 H Pulse Oximetry 93 L 94 L 98 03/18/18 08:00 Temperature 97.3 F L Pulse Rate 58 L Respiratory Rate 14 Blood Pressure 173/78 H Pulse Oximetry 92 L Intake & Output 03/17/18 03/18/18 03/18/18 18:59 06:59 18:59 Intake Total 615 / 615 615 / 615 565 / 565 Output Total 400 / 400 700 / 700 Balance 215 / 215 -85 / -85 565 / 565 Intake: IV 615 / 615 615 / 615 565 / 565 Zosyn 3.375 GM Premix 50 ML @ 100 / 100 100 / 100 50 / 50 100 mls/hr IV.SIG Q6H RICKI Rx#: [id number] Vancomycin Inj 1,500 MG In NS 515 / 515 515 / 515 515 / 515 Inj 500 ML @ 250 mls/hr IV.SIG Q12H RICKI Rx#:[id number] Output: Urine 400 / 400 700 / 700 Other: Date of Last Bowel Movement 03/17/18 # Bowel Movements 1 Narrative: Gen.: No acute distress Awake alert and oriented x3 talkative and cooperative Head: Normocephalic. Atraumatic. EENT: Pupils equal round and reactive to light. Nose without drainage. Airway intact. Throat without injection. EOMI Neck is supple tongue is midline no JVD Cardiovascular: Regular rate and rhythm. No murmurs, rubs or gallops. S1-S2 no S3 or S4 Respiratory: Lungs clear to auscultation bilaterally. No wheezes or rhonchi. Abdomen: Soft, nontender, nondistended. No peritoneal signs. Musculoskeletal: Bilateral lower extremity edema with chronic skin changes. Erythema and several large ulcerations with areas of necrotic tissue on the bilateral lower extremities. Purulent drainage that is foul-smelling. Skin: See above Neuro: Sensory and motor grossly intact. Cranial nerves II through XII grossly intact. Insight and judgment is limited Mood and behavior somewhat inappropriate Results - Labs CBC & Chem 7: 03/17/18 13:34 03/17/18 13:34 Laboratory Results - last 24 hr 03/17/18 03/17/18 03/17/18 13:34 13:34 13:34 WBC 10.1 RBC 4.44 L Hgb 11.9 L Hct 37.0 L MCV 83.3 MCH 26.7 L MCHC 32.1 RDW 14.5 Plt Count 335 MPV 7.9 Neut % (Auto) 67.8 Lymph % (Auto) 18.9 [place] % (Auto) 8.8 H Eos % (Auto) 3.8 Baso % (Auto) 0.7 Neut # (Auto) 6.8 Lymph # (Auto) 1.9 [place] # (Auto) 0.9 Eos # (Auto) 0.4 Baso # (Auto) 0.1 WBC Differential . Differential Comment Auto diff final PT INR Sodium 142 Potassium 3.4 L Chloride 105 Carbon Dioxide 28.6 Anion Gap 8 BUN 13 Creatinine 0.73 Estimated GFR Greater than 89 Random Glucose 120 H Hemoglobin A1c 6.3 H Calcium 8.7 Phosphorus 2.9 Magnesium 2.0 Total Bilirubin 0.2 AST 13 L ALT 16 Alkaline Phosphatase 62 Total Protein 7.1 Albumin 2.5 L TSH 1.370 Free T4 0.96 Vancomycin Trough 03/17/18 03/17/18 13:36 16:15 WBC RBC Hgb Hct MCV MCH MCHC RDW Plt Count MPV Neut % (Auto) Lymph % (Auto) [place] % (Auto) Eos % (Auto) Baso % (Auto) Neut # (Auto) Lymph # (Auto) [place] # (Auto) Eos # (Auto) Baso # (Auto) WBC Differential Differential Comment PT 11.0 INR 1.1 Sodium Potassium Chloride Carbon Dioxide Anion Gap BUN Creatinine Estimated GFR Random Glucose Hemoglobin A1c Calcium Phosphorus Magnesium Total Bilirubin AST ALT Alkaline Phosphatase Total Protein Albumin TSH Free T4 Vancomycin Trough 18.7 H Microbiology 03/16/18 01:15 Blood - Peripheral Aerobic Blood Culture - Preliminary No growth in 2 days 03/16/18 01:15 Blood - Peripheral Anaerobic Blood Culture - Preliminary No growth in 2 days 03/16/18 01:30 Blood - Peripheral Aerobic Blood Culture - Preliminary No growth in 2 days 03/16/18 01:30 Blood - Peripheral Anaerobic Blood Culture - Preliminary No growth in 2 days 03/15/18 21:18 Wound - Leg Gram Stain - Final 03/15/18 21:18 Wound - Leg Wound Culture - Final - Imaging Chest X-Ray 03/15/18 21:01 CONCLUSION: The lungs are clear. Tibia/Fibula X-Ray 03/15/18 21:09 CONCLUSION: Abnormal appearance to the soft tissues of the calf. Irregular skin medially. Irregular hyperdensity in the posterior soft tissues of uncertain significance. Periosteal reaction in the mid fibula is nonspecific and could be reactive or due to osteomyelitis. Tibia/Fibula X-Ray 03/15/18 21:09 CONCLUSION: Prominent edema/induration of the soft tissues of the leg. The osseous structures are intact. Lower Extremity MRI 03/16/18 00:00 CONCLUSION: 1. Superficial wound lateral aspect of the leg that has extended down to the muscle with minimal myositis 2. Generalized subcutaneous edema. Aorta w/Runoff CTA 03/17/18 00:03 CONCLUSION: 1. No significant aortoiliac inflow stenosis 2. Bilateral SFA occlusions. 3. Below-knee popliteal is a satisfactory target on the right 4. Distalmost left popliteal and trifurcation are relatively healthy in appearance 5. Large right-sided bowel containing inguinal hernia. Fat-containing left inguinal hernia. - Procedures PODIATRY PROCEDURES 8- Assessment and Plan - Plan 1. Bilateral lower extremity wounds/? Osteomyelitis Vancomycin/Zosyn MRI left lower extremity pending as x-ray showed periosteal reaction in the mid fibula which may be secondary to osteomyelitis CRP elevated Orthopedic surgery consulted, appreciate recommendations Wound, blood cultures pending Wound care consulted 2. CHF Continue home Lasix 3. Hyperlipidemia Continue home statin HYPERTENSION - PRN CATAPRES AND SCHEDULED NORVASC 5MG PO DAILY AM LABS DIET DM CARDIAC WILL NEED ID, VASCULAR AND PODIATRY EVALUATIONS- HAS BEEN SEEN BY ALL CARDIAC CLEARANCE BY CARDIOLOGY HAD ANGIOGRAM OF LE 03-17 -RESULTS REVIEWED WILL GET MRI OF LEGS- HAS BEEN DONE AND REVIEWED Code Status: FULL CODE Discussed Condition With: RN AND PT AND CM Discharge Planning: PENDING CLEARANCE BY ALL
--- NOTE | 2018-03-18 14:18 | P.PNID ---
Subjective Remarks: Patient has no complaints. Afebrile. Dressings in place at both tibias. Wound culture showed normal rodolfo. 72-year-old white male who was admitted to the hospital with chronic lower extremity wounds. The patient is a poor historian. He tells me that he has had the wounds on his legs for 9 years. The edema and the wounds were worsening and therefore, he presented to the emergency department for evaluation. He has been having drainage coming from the legs, particularly the left leg where he has 2 ulcerations, including a large ulceration measuring approximately 8 x 6 cm at the lateral aspect and another one at the inner posterior tibia of approximately 4 x 4 cm. The legs are very dry and have hypertrophic tissue and superficial peeling of the skin. Past Medical History: PAST MEDICAL HISTORY: Hyperlipidemia, congestive heart failure. The patient also reports that he has had asthma in the past. Allergies/Adverse Reactions: Allergies No Known Allergies Allergy (Verified 03/15/18 21:47) Objective Vital Signs 03/17/18 16:00 03/18/18 00:00 03/18/18 04:00 Temperature 97.7 F 98.5 F 97.7 F Pulse Rate 80 62 63 Respiratory Rate 18 18 18 Blood Pressure 146/78 H 154/72 H 156/70 H Pulse Oximetry 93 L 94 L 98 03/18/18 08:00 Temperature 97.3 F L Pulse Rate 58 L Respiratory Rate 14 Blood Pressure 173/78 H Pulse Oximetry 92 L Intake & Output 03/17/18 03/18/18 03/18/18 18:59 06:59 18:59 Intake Total 615 / 615 615 / 615 565 / 565 Output Total 400 / 400 700 / 700 300 / 300 Balance 215 / 215 -85 / -85 265 / 265 Intake: IV 615 / 615 615 / 615 565 / 565 Zosyn 3.375 GM Premix 50 ML @ 100 / 100 100 / 100 50 / 50 100 mls/hr IV.SIG Q6H RICKI Rx#: [id number] Vancomycin Inj 1,500 MG In NS 515 / 515 515 / 515 515 / 515 Inj 500 ML @ 250 mls/hr IV.SIG Q12H RICKI Rx#:[id number] Output: Urine 400 / 400 700 / 700 300 / 300 Other: Date of Last Bowel Movement 03/17/18 03/18/18 # Bowel Movements 1 1 08/22/18 01:15 Blood - Peripheral Aerobic Blood Culture - Preliminary No growth in 2 days 03/16/18 01:15 Blood - Peripheral Anaerobic Blood Culture - Preliminary No growth in 2 days 03/16/18 01:30 Blood - Peripheral Aerobic Blood Culture - Preliminary No growth in 2 days 03/16/18 01:30 Blood - Peripheral Anaerobic Blood Culture - Preliminary No growth in 2 days 03/15/18 21:18 Wound - Leg Gram Stain - Final 03/15/18 21:18 Wound - Leg Wound Culture - Final Lab - Hematology Results 03/17/18 13:34 WBC 10.1 RBC 4.44 L Hgb 11.9 L Hct 37.0 L MCV 83.3 MCH 26.7 L MCHC 32.1 RDW 14.5 Plt Count 335 MPV 7.9 Neut % (Auto) 67.8 Lymph % (Auto) 18.9 [place] % (Auto) 8.8 H Eos % (Auto) 3.8 Baso % (Auto) 0.7 Neut # (Auto) 6.8 Lymph # (Auto) 1.9 [place] # (Auto) 0.9 Eos # (Auto) 0.4 Baso # (Auto) 0.1 WBC Differential . Differential Comment Auto diff final Lab - Chemistry Results 03/17/18 03/17/18 13:34 13:34 Sodium 142 Potassium 3.4 L Chloride 105 Carbon Dioxide 28.6 Anion Gap 8 BUN 13 Creatinine 0.73 Estimated GFR Greater than 89 Random Glucose 120 H Hemoglobin A1c 6.3 H Calcium 8.7 Phosphorus 2.9 Magnesium 2.0 Total Bilirubin 0.2 AST 13 L ALT 16 Alkaline Phosphatase 62 Total Protein 7.1 Albumin 2.5 L TSH 1.370 Free T4 0.96 Imaging: ITS Impressions Chest X-Ray 03/15/18 21:01 CONCLUSION: The lungs are clear. Tibia/Fibula X-Ray 03/15/18 21:09 CONCLUSION: Prominent edema/induration of the soft tissues of the leg. The osseous structures are intact. Lower Extremity MRI 03/16/18 00:00 CONCLUSION: 1. Superficial wound lateral aspect of the leg that has extended down to the muscle with minimal myositis 2. Generalized subcutaneous edema. Aorta w/Runoff CTA 03/17/18 00:03 CONCLUSION: 1. No significant aortoiliac inflow stenosis 2. Bilateral SFA occlusions. 3. Below-knee popliteal is a satisfactory target on the right 4. Distalmost left popliteal and trifurcation are relatively healthy in appearance 5. Large right-sided bowel containing inguinal hernia. Fat-containing left inguinal hernia. Physical Exam: PHYSICAL EXAMINATION: GENERAL: No acute distress. HEENT: No icterus. SIDNEY, EOMI. Oropharynx, mucosa moist, very poor dentition with multiple erosions of the teeth. NECK: Supple without adenopathy. LUNGS: Decreased breath sounds. HEART: Regular S1, S2. No murmurs, rubs or gallops. ABDOMEN: Bowel sounds present. Soft, nontender. EXTREMITIES: Both lower extremities have chronic superficial ulcerations, peeling of the skin and hypertrophic changes. There is a large ulceration at the lateral aspect of the left leg and also, the inner aspect has another ulceration of a smaller size. Both feet have edema. SKIN: No diffuse rash. NEUROLOGIC: No gross focal finding. PSYCHIATRIC: Calm and cooperative Assessment and Plan - Plan IMPRESSION: 1. Bilateral lower extremity cellulitis. 2. Chronic ulcerations of the left leg with MRI changes suggesting myositis. 3. Venostasis. RECOMMENDATIONS: 1. Stop vancomycin. 2. Continue piperacillin/tazobactam. 3. Continue p.o. Diflucan. 4. Monitor clinical response to antibiotics.
--- NOTE | 2018-03-18 15:13 | MB ---
cc: Rwody Bond MD DATE: 03/18/2018 REASON FOR CONSULTATION: Cardiac clearance. HISTORY OF PRESENT ILLNESS: The patient is a 72-year-old white male with a history of hyperlipidemia, hypertension, chronic deep venous insufficiency and chronic venous stasis, severe peripheral vascular disease, who was initially admitted with complaints of chronic lower extremity swelling, nonhealing wounds, more so on the left leg. He apparently has been considered for vascular surgical intervention. The patient denies chest pain, shortness of breath, palpitations, paroxysmal nocturnal dyspnea, lightheadedness, syncope, near syncope. For the most part, he is sedentary. Rarely he experiences fluttering palpitations, which never last more than a few seconds. PAST MEDICAL HISTORY: 1. Hyperlipidemia. 2. Hypertension. 3. Chronic lower extremity deep venous insufficiency and chronic venous stasis. 4. Peripheral vascular disease with a CT angiogram 03/17/2018 showing occluded bilateral superficial femoral arteries. PAST SURGICAL HISTORY: None. CARDIAC MEDICATIONS AT HOME: 1. Simvastatin 20 mg at bedtime. 2. Furosemide 40 mg daily. ALLERGIES: NO KNOWN DRUG ALLERGIES. FAMILY HISTORY: There is no significant family history of early myocardial infarction. SOCIAL HISTORY: The patient quit smoking more than 20 years ago. He denies alcohol abuse. REVIEW OF SYSTEMS: As in the history of present illness, otherwise negative or noncontributory. He also denies headache, abdominal pain, melena, dyspepsia. Rarely he notices minimal bright red blood per rectum. PHYSICAL EXAMINATION: VITAL SIGNS: Blood pressure 173/78 with a pulse of 58, respirations 14. GENERAL: He is a well-developed, well-nourished white male, in no acute distress. NECK: Jugular venous pressure is normal. Carotid pulses are 2+ bilaterally and without bruits. CHEST: Reveals clear lung [place]. CARDIAC: He has a regular rhythm and rate without S3, S4, or murmur. ABDOMEN: He has a soft, nontender abdomen. Bowel sounds are present. There is no definite hepatosplenomegaly. EXTREMITIES: Reveal his wounds to be in dressings. There is no definite cyanosis. DIAGNOSTIC DATA: EKG shows sinus rhythm, left anterior fascicular block, voltage criteria for left ventricular hypertrophy. Chest x-ray shows no acute disease. LABORATORY DATA: Includes WBC 10.1, hemoglobin 11.9, platelets 335, potassium 3.4, BUN 13, creatinine 0.73. ASSESSMENT: A 72-year-old white male with history of hyperlipidemia, hypertension, chronic venous stasis, severe peripheral vascular disease. I have been asked to see the patient for cardiac clearance, apparently prior to consideration of vascular surgical intervention. He has been found to have occluded superficial femoral arteries on CT angiography this admission. Although the patient has no definite angina symptoms, he is quite sedentary. The patient has risk factors for coronary artery disease. EKG is overall unremarkable except for voltage criteria for left ventricular hypertrophy. There is no definite evidence for congestive heart failure. His echocardiogram is pending. RECOMMENDATIONS: 1. Await a 2-D echo. 2. Will check a Lexiscan nuclear stress test for preoperative risk assessment. Rowdy Bond MD [facility] , 02:09 PM , 02:17 PM BERT
--- NOTE | 2018-03-18 18:22 | ECHRPT ---
Indication: HYPERTENSIVE HEART DISEASE CONCLUSIONS Normal left ventricular size and wall thickness. The left ventricular systolic function is normal wi th an estimated ejection fraction in the range of 60-65%. Normal wall motion. There is trace tricuspid valve regurgitation. The estimated pulmonary arterial pressure is 33 mmHg. BP: / HR: Rhythm: Sinus MEASUREMENTS (Male / Female) Normal Values Technical Quality:Fair 2D ECHO LV Diastolic Diameter PLAX 4.6 cm 4.2 - 5.9 / 3.9 - 5.3 cm LV Systolic Diameter PLAX 3.4 cm IVS Diastolic Thickness 1.5 cm 0.6 - 1.0 / 0.6 - 0.9 cm LVPW Diastolic Thickness 1.5 cm 0.6 - 1.0 / 0.6 - 0.9 cm LV Relative Wall Thickness 0.7 RV Internal Dim ED PLAX 2.5 cm LVOT Diameter 2.4 cm Aortic Root Diameter 3.7 cm LA Systolic Diameter LX 3.4 cm 3.0 - 4.0 / 2.7 - 3.8 cm M-MODE AV Cusp Separation MM 1.5 cm DOPPLER AV Peak Velocity 143.0 cm/s AV Peak Gradient 8.2 mmHg AV Mean Gradient 4.0 mmHg AV Velocity Time Integral 27.5 cm LVOT Peak Velocity 82.0 cm/s LVOT Peak Gradient 2.7 mmHg LVOT Velocity Time Integral 18.4 cm AV Area Cont Eq vti 3.0 cm AV Area Cont Eq pk 2.6 cm Mitral E Point Velocity 83.9 cm/s Mitral A Point Velocity 104.0 cm/s Mitral E to A Ratio 0.8 LV E' Lateral Velocity 7.4 cm/s Mitral E to LV E' Lateral Ratio 11.3 LV E' Septal Velocity 4.7 cm/s Mitral E to LV E' Septal Ratio 17.9 TR Peak Velocity 243.0 cm/s TR Peak Gradient 23.6 mmHg Right Atrial Pressure 10.0 mmHg Pulmonary Artery Systolic Pressu 33.6 mmHg Right Ventricular Systolic Press 33.6 mmHg PV Peak Velocity 69.2 cm/s PV Peak Gradient 1.9 mmHg FINDINGS LEFT VENTRICLE Normal left ventricular size and wall thickness. The left ventricular systolic function is normal wi th an estimated ejection fraction in the range of 60-65%. Normal wall motion. RIGHT VENTRICLE Normal right ventricular size and systolic function. LEFT ATRIUM The left atrial size is normal. RIGHT ATRIUM The right atrial size is normal. ATRIAL SEPTUM No atrial level shunt is demonstrated by color flow Doppler interrogation. AORTA The aortic root and proximal ascending aorta are normal in size on limited imaging. MITRAL VALVE Structurally normal mitral valve. No mitral valve stenosis or regurgitation. AORTIC VALVE Trileaflet aortic valve. No aortic valve stenosis or regurgitation. TRICUSPID VALVE There is trace tricuspid valve regurgitation. The estimated pulmonary arterial pressure is 33 mmHg. PULMONARY VALVE No pulmonary valve regurgitation or stenosis. VESSELS The inferior vena cava is normal in size. PERICARDIUM No pericardial effusion. Rowdy Bond MD (Electronically Signed) Final Date:18 March 2018 18:21
[2018-03-19] MEDS: Piperacil/Tazo 3.375 GM Premix 50 ML IV.SIG SCH ×4 (03:39→22:52)
[2018-03-19] MEDS: Vancomycin Inj 1,500 MG in Sodium Chlor 0.9% Inj 500 ML IV.SIG SCH ×2 (05:31→17:54)
[2018-03-19 07:16] LABS: Baso # (Auto) 0.2 th/mm3 (0.0-0.2); Baso % (Auto) 2.2 % (0.0-2.0); Eos # (Auto) 0.6 th/mm3 (0.0-0.4); Eos % (Auto) 9.3 % (0.0-4.0); Hematocrit 32.1 % (39.0-51.0); Hemoglobin 11.3 gm/dL (13.0-17.0); Lymph # (Auto) 2.1 th/mm3 (1.0-4.8); Lymph % (Auto) 29.9 % (9.0-44.0); Mean Corpuscular HGB Conc 35.1 % (32.0-36.0); Mean Corpuscular Hemoglobin 28.8 pg (27.0-34.0); Mean Corpuscular Volume 81.9 fL (80.0-100.0); Mean Platelet Volume 7.9 fL (7.0-11.0); Mono # (Auto) 0.5 th/mm3 (0.0-0.9); Mono % (Auto) 7.9 % (0.0-8.0); Neut # (Auto) 3.5 th/mm3 (1.8-7.7); Neut % (Auto) 50.7 % (16.0-70.0); Platelet Count 289 th/mm3 (150-450); Red Blood Count 3.92 mil/mm3 (4.50-5.90); Red Cell Distribution Width 14.3 % (11.6-17.2); White Blood Count 6.9 th/mm3 (4.0-11.0)
[2018-03-19 07:44] LABS: Albumin 2.3 g/dL (3.4-5.0); Anion Gap 8 meq/L (5-15); Aspartate Aminotransferase 21 U/L (15-37); Blood Urea Nitrogen 13 mg/dL (7-18); Calcium 8.3 mg/dL (8.5-10.1); Carbon Dioxide 27.6 meq/L (21.0-32.0); Chloride 105 meq/L (98-107); Glomerular Filtration Rate Greater Than 89 mL/min (>89); Glucose,Random 101 mg/dL (74-106); Potassium 3.5 meq/L (3.5-5.1); Sodium 141 meq/L (136-145)
[2018-03-19 07:45] LABS: Alanine Aminotransferase 18 U/L (12-78); Phosphorus 2.6 mg/dL (2.5-4.9)
[2018-03-19 07:47] LABS: Alkaline Phosphatase 54 U/L (45-117); Total Protein 6.2 g/dL (6.4-8.2)
[2018-03-19] MEDS: amLODIPine 5 MG Tablet PO SCH (09:12)
[2018-03-19] MEDS: Furosemide 40 MG Tablet PO SCH (09:12)
[2018-03-19] MEDS: Senna/Docusate Sodium 8.6/50 MG Tablet PO SCH ×2 (09:13→22:53)
--- NOTE | 2018-03-19 13:36 | P.PNIM ---
Subjective Interval history: 72-year-old male with a past medical history of CHF and hyperlipidemia presents to the emergency department for evaluation of lower extremity pain and wounds. Patient states he has had wounds on his lower extremities bilaterally for the past 6 months. He states it has been worsening over that timeframe. He states there is a discharge and drainage noted. He reports subjective fever/chills. Reports pain with ambulation. Denies chest pain or shortness of breath. No abdominal pain. No nausea/vomiting/diarrhea. 03-16 SEEN BY ORTHO NO SURGERY YET VASCULAR, ID, PODIATRY HAVE NOW BEEN CONSULTED WOUNDS HAVE BEEN THERE AT LEAST 6 PLUS MONTHS IF PATIENT HISTORY IS CORRECT PRN CATAPRES START NORVASC 5 MG PO DAILY FOR HTN 03-17 SEEN BY PODIATRY, ID AND VASCULAR HAD ANGIOGRAM RESULTS PENDING ANTIBIOTICS PER ID SURGERY PER VASCULAR NEEDS PT AND OT PATIENT WAS UPSET THEY WERE TRYING TO MOVE HIM- EXPLAINED HE NEEDS TO BE MOVED REGARDING THIS AND NOT LIE IN BED AND GET WEAKER AM LABS 03-18 SEEN BY ALL WILL NEED VASCULAR SURGERY CONSULT CARDIO FOR CLEARANCE DW RN AND PT AND CM ANTIBIOTICS PER ID DW PATIENT AND RN AND CM 03-19 HAD ECHO ON 03-18 [facility] NUCLEAR STRESS TEST TODAY RESULTS PENDING AM LABS ANTIBIOTICS PER ID DW RN AND PT Physical Exam Vital signs: Vital Signs 03/18/18 18:05 03/18/18 20:00 03/19/18 00:00 Temperature 97.5 F L 98 F 98.5 F Pulse Rate 60 66 62 Respiratory Rate 16 18 18 Blood Pressure 171/73 H 160/74 H 145/70 H Pulse Oximetry 93 L 98 94 L 03/19/18 04:00 03/19/18 08:00 Temperature 97.7 F 97.8 F Pulse Rate 60 54 L Respiratory Rate 18 17 Blood Pressure 156/72 H 172/77 H Pulse Oximetry 96 93 L Intake & Output 03/18/18 03/19/18 03/19/18 18:59 06:59 18:59 Intake Total 615 / 615 615 / 615 565 / 565 Output Total 650 / 650 600 / 600 Balance -35 / -35 565 / 565 Intake: IV 615 / 615 615 / 615 565 / 565 Zosyn 3.375 GM Premix 50 ML @ 100 / 100 100 / 100 50 / 50 100 mls/hr IV.SIG Q6H [facility] Rx#: [id number] Vancomycin Inj 1,500 MG In NS 515 / 515 515 / 515 515 / 515 Inj 500 ML @ 250 mls/hr IV.SIG Q12H [facility] Rx#:[id number] Output: Urine 650 / 650 600 / 600 Other: Date of Last Bowel Movement 03/18/18 03/19/18 03/19/18 # Bowel Movements 1 Narrative: Gen.: No acute distress Awake alert and oriented x3 talkative and cooperative Head: Normocephalic. Atraumatic. EENT: Pupils equal round and reactive to light. Nose without drainage. Airway intact. Throat without injection. EOMI Neck is supple tongue is midline no JVD Cardiovascular: Regular rate and rhythm. No murmurs, rubs or gallops. S1-S2 no S3 or S4 Respiratory: Lungs clear to auscultation bilaterally. No wheezes or rhonchi. Abdomen: Soft, nontender, nondistended. No peritoneal signs. Musculoskeletal: Bilateral lower extremity edema with chronic skin changes. Erythema and several large ulcerations with areas of necrotic tissue on the bilateral lower extremities. Purulent drainage that is foul-smelling. Skin: See above Neuro: Sensory and motor grossly intact. Cranial nerves II through XII grossly intact. Insight and judgment is limited Mood and behavior somewhat inappropriate Results - Labs CBC & Chem 7: 03/19/18 06:47 03/19/18 06:47 Laboratory Results - last 24 hr 03/19/18 03/19/18 06:47 06:47 WBC 6.9 RBC 3.92 L Hgb 11.3 L Hct 32.1 L MCV 81.9 MCH 28.8 MCHC 35.1 RDW 14.3 Plt Count 289 MPV 7.9 Neut % (Auto) 50.7 Lymph % (Auto) 29.9 [place] % (Auto) 7.9 Eos % (Auto) 9.3 H Baso % (Auto) 2.2 H Neut # (Auto) 3.5 Lymph # (Auto) 2.1 [place] # (Auto) 0.5 Eos # (Auto) 0.6 H Baso # (Auto) 0.2 WBC Differential . Differential Comment Auto diff final Sodium 141 Potassium 3.5 Chloride 105 Carbon Dioxide 27.6 Anion Gap 8 BUN 13 Creatinine 0.76 Estimated GFR Greater than 89 Random Glucose 101 Calcium 8.3 L Phosphorus 2.6 Magnesium 2.0 Total Bilirubin 0.3 AST 21 ALT 18 Alkaline Phosphatase 54 Total Protein 6.2 L D Albumin 2.3 L Microbiology 03/16/18 01:15 Blood - Peripheral Aerobic Blood Culture - Preliminary No growth in 3 days 03/16/18 01:15 Blood - Peripheral Anaerobic Blood Culture - Preliminary No growth in 3 days 03/16/18 01:30 Blood - Peripheral Aerobic Blood Culture - Preliminary No growth in 3 days 03/16/18 01:30 Blood - Peripheral Anaerobic Blood Culture - Preliminary No growth in 3 days - Imaging Chest X-Ray 03/15/18 21:01 CONCLUSION: The lungs are clear. Tibia/Fibula X-Ray 03/15/18 21:09 CONCLUSION: Abnormal appearance to the soft tissues of the calf. Irregular skin medially. Irregular hyperdensity in the posterior soft tissues of uncertain significance. Periosteal reaction in the mid fibula is nonspecific and could be reactive or due to osteomyelitis. Tibia/Fibula X-Ray 03/15/18 21:09 CONCLUSION: Prominent edema/induration of the soft tissues of the leg. The osseous structures are intact. Lower Extremity MRI 03/16/18 00:00 CONCLUSION: 1. Superficial wound lateral aspect of the leg that has extended down to the muscle with minimal myositis 2. Generalized subcutaneous edema. Aorta w/Runoff CTA 03/17/18 00:03 CONCLUSION: 1. No significant aortoiliac inflow stenosis 2. Bilateral SFA occlusions. 3. Below-knee popliteal is a satisfactory target on the right 4. Distalmost left popliteal and trifurcation are relatively healthy in appearance 5. Large right-sided bowel containing inguinal hernia. Fat-containing left inguinal hernia. - Procedures PODIATRY PROCEDURES 03-16 Assessment and Plan - Plan 1. Bilateral lower extremity wounds/? Osteomyelitis Vancomycin/Zosyn---TRANSITIONED TO ZOSYN AND DIFLUCAN MRI left lower extremity pending as x-ray showed periosteal reaction in the mid fibula which may be secondary to osteomyelitis CRP elevated Orthopedic surgery consulted, appreciate recommendations Wound, blood cultures pending Wound care consulted SWITCHED TO ZOSYN AND DIFLUCAN NOW 2. CHF Continue home Lasix EF 55 TO 60% 3. Hyperlipidemia Continue home statin HYPERTENSION - PRN CATAPRES AND SCHEDULED NORVASC 5MG PO DAILY AM LABS DIET DM CARDIAC WILL NEED ID, VASCULAR AND PODIATRY EVALUATIONS- HAS BEEN SEEN BY ALL CARDIAC CLEARANCE BY CARDIOLOGY HAD ANGIOGRAM OF LE 03-17 -RESULTS REVIEWED HAD ECHO 03-18 STRESS TEST TODAY 03-19 WILL GET MRI OF LEGS- HAS BEEN DONE AND REVIEWED Code Status: FULL CODE Discussed Condition With: RN AND PT AND CM Discharge Planning: PENDING CLEARANCE BY ALL
--- NOTE | 2018-03-19 13:55 | P.PNVS ---
Subjective Subjective/Hospital Course: Patient and diagnostic studies evaluated Full consult dictated We will continue to follow CTA with runoff ordered Thanks Ivette 03/17/2018 The patient actually has bilateral palpable femoral pulses and then no distal pulses on palpation. He has dopplerable popliteal pulses, and below that, I cannot detect any pulse. The patient has severe stigmata of chronic venous stasis and chronic venous insufficiency signified by liposclerosis, hemosiderosis, organized edema and early beginnings of elephantiasis. In addition, the patient has large ulcers on the left leg medial and lateral aspects. Along the lateral aspect, it is going really deep, perhaps even to the bone, and on the medial aspect, it is shallow. In addition, the patient has smaller ulcers over the right lower leg. He has swelling over both feet and clearly infection of the toenails, probably a combination of fungal and bacterial. CTA with runoff confirms the clinical impression. Patient has good inflow with scattered minimal disease in iliac and common femoral arteries and then complete occlusion of bilateral SFAs. Popliteal arteries reconstitute just above the knee and left one is diseased more than the right one. From the ear patient has flow in all 3 vessels but these a small throughout Patient will need left and right femoral-popliteal bypass but I would wait for another few days for these ulcers to clean up because we are likely to put PTFE graft and if this got infected it would be pretty catastrophic issue to deal with. We will give patient another few days of antibiotics and local wound care and then proceed next week with a left femoral-popliteal bypass. Time patient will require basic cardiac workup is usual for vascular surgery 03/19/2018 Patient with above noted anatomical situation with bilateral SFA occlusions In absence of any further intervention patient will lose both legs below the level of the knee within next few months We will proceed with left femoral-popliteal bypass early next week and then probably right side several weeks later Discussed with patient Objective Vital Signs / I&O: Vital Signs 03/18/18 18:05 03/18/18 20:00 03/19/18 00:00 Temperature 97.5 F L 98 F 98.5 F Pulse Rate 60 66 62 Respiratory Rate 16 18 18 Blood Pressure 171/73 H 160/74 H 145/70 H Pulse Oximetry 93 L 98 94 L 03/19/18 04:00 03/19/18 08:00 Temperature 97.7 F 97.8 F Pulse Rate 60 54 L Respiratory Rate 18 17 Blood Pressure 156/72 H 172/77 H Pulse Oximetry 96 93 L Intake & Output 03/18/18 03/19/18 03/19/18 18:59 06:59 18:59 Intake Total 615 / 615 615 / 615 565 / 565 Output Total 650 / 650 600 / 600 Balance -35 / -35 565 / 565 Intake: IV 615 / 615 615 / 615 565 / 565 Zosyn 3.375 GM Premix 50 ML @ 100 / 100 100 / 100 50 / 50 100 mls/hr IV.SIG Q6H [facility] Rx#: [id number] Vancomycin Inj 1,500 MG In NS 515 / 515 515 / 515 515 / 515 Inj 500 ML @ 250 mls/hr IV.SIG Q12H [facility] Rx#:[id number] Output: Urine 650 / 650 600 / 600 Other: Date of Last Bowel Movement 03/18/18 03/19/18 03/19/18 # Bowel Movements 1 Laboratory Results - last 24 hr 03/19/18 03/19/18 06:47 06:47 WBC 6.9 RBC 3.92 L Hgb 11.3 L Hct 32.1 L MCV 81.9 MCH 28.8 MCHC 35.1 RDW 14.3 Plt Count 289 MPV 7.9 Neut % (Auto) 50.7 Lymph % (Auto) 29.9 [place] % (Auto) 7.9 Eos % (Auto) 9.3 H Baso % (Auto) 2.2 H Neut # (Auto) 3.5 Lymph # (Auto) 2.1 [place] # (Auto) 0.5 Eos # (Auto) 0.6 H Baso # (Auto) 0.2 WBC Differential . Differential Comment Auto diff final Sodium 141 Potassium 3.5 Chloride 105 Carbon Dioxide 27.6 Anion Gap 8 BUN 13 Creatinine 0.76 Estimated GFR Greater than 89 Random Glucose 101 Calcium 8.3 L Phosphorus 2.6 Magnesium 2.0 Total Bilirubin 0.3 AST 21 ALT 18 Alkaline Phosphatase 54 Total Protein 6.2 L D Albumin 2.3 L Microbiology 03/16/18 01:15 Aerobic Blood Culture - Preliminary Blood - Peripheral No growth in 3 days Anaerobic Blood Culture - Preliminary No growth in 3 days 03/16/18 01:30 Aerobic Blood Culture - Preliminary Blood - Peripheral No growth in 3 days Anaerobic Blood Culture - Preliminary No growth in 3 days
--- NOTE | 2018-03-19 14:13 | P.PNPOD ---
Physical Exam Vital signs: Vital Signs 03/18/18 18:05 03/18/18 20:00 03/19/18 00:00 Temperature 97.5 F L 98 F 98.5 F Pulse Rate 60 66 62 Respiratory Rate 16 18 18 Blood Pressure 171/73 H 160/74 H 145/70 H Pulse Oximetry 93 L 98 94 L 03/19/18 04:00 03/19/18 08:00 03/19/18 12:00 Temperature 97.7 F 97.8 F 97.4 F L Pulse Rate 60 54 L 63 Respiratory Rate 18 17 16 Blood Pressure 156/72 H 172/77 H 151/97 H Pulse Oximetry 96 93 L 95 Intake & Output 03/18/18 03/19/18 03/19/18 18:59 06:59 18:59 Intake Total 615 / 615 615 / 615 565 / 565 Output Total 650 / 650 600 / 600 Balance -35 / -35 15 565 / 565 Intake: IV 615 / 615 615 / 615 565 / 565 Zosyn 3.375 GM Premix 50 ML @ 100 / 100 100 / 100 50 / 50 100 mls/hr IV.SIG Q6H [facility] Rx#: [id number] Vancomycin Inj 1,500 MG In NS 515 / 515 515 / 515 515 / 515 Inj 500 ML @ 250 mls/hr IV.SIG Q12H [facility] Rx#:[id number] Output: Urine 650 / 650 600 / 600 Other: Date of Last Bowel Movement 03/18/18 03/19/18 03/19/18 # Bowel Movements 1 Medications and Allergies Active Medications: Active Medications Acetaminophen (Tylenol) 650 mg PO Q4H PRN PRN Reason: Temp > 100.4 Al Hydroxide/Mg Hydroxide (Milk Of Magnesia Liq) 30 ml PO Q12H PRN PRN Reason: Mild Constipation Amlodipine Besylate (Norvasc) 5 mg PO DAILY [facility] Last Admin: 03/19/18 09:12 Dose: 5 mg Bisacodyl (Dulcolax Supp) 10 mg RECTAL DAILY PRN PRN Reason: SEVERE CONSITIPATION Clonidine HCl (Catapres) 0.1 mg PO Q6H PRN PRN Reason: HYPERTENSION Last Admin: 03/18/18 18:11 Dose: 0.1 mg Fluconazole (Diflucan) 200 mg PO DAILY [facility] Last Admin: 03/19/18 09:13 Dose: 200 mg Furosemide (Lasix) 40 mg PO DAILY [facility] Last Admin: 03/19/18 09:12 Dose: 40 mg Piperacillin/Tazobactam/Dextrose (Zosyn 3.375 Gm Premix) 50 mls @ 100 mls/hr IV.SIG Q6H [facility] Last Infusion: 03/19/18 10:04 Dose: Infused Vancomycin HCl 1,500 mg/ (Sodium Chloride) 515 mls @ 250 mls/hr IV.SIG Q12H [facility] Last Infusion: 03/19/18 07:36 Dose: Infused Lactulose (Lactulose Liq) 30 ml PO DAILY PRN PRN Reason: SEVERE CONSITIPATION Miscellaneous Information ([facility] Ordered Lab Info) 1 each OTHER ONCE ONE Stop: 03/19/18 16:46 Morphine Sulfate (Morphine Inj) 4 mg IV.PUSH Q4H PRN PRN Reason: pain 6-10 Last Admin: 03/16/18 19:32 Dose: 4 mg Ondansetron HCl (Zofran Inj) 4 mg IV.PUSH Q6H PRN PRN Reason: NAUSEA OR VOMITING Pharmacy Profile Note (Vancomycin Consult Pharmacy) 1 each OTHER UNSCH PRN PRN Reason: Pharmacy to dose Pravastatin Sodium (Pravachol) 40 mg PO QPM [facility] Last Admin: 03/18/18 18:05 Dose: 40 mg Senna/Docusate Sodium (Renee-Colace) 1 tab PO BID [facility] Last Admin: 03/19/18 09:13 Dose: Not Given Sennosides (Senokot) 17.2 mg PO Q12H PRN PRN Reason: Moderate Constipation Allergies Allergy/AdvReac Type Severity Reaction Status Date / Time No Known Allergies Allergy Verified 03/15/18 21:47 Home Medications Medication Instructions Recorded Confirmed Type furosemide [Lasix] 40 mg PO DAILY 03/15/18 03/15/18 History simvastatin 20 mg PO QPM 03/15/18 03/15/18 History Results - Labs CBC & Chem 7: 03/19/18 06:47 03/19/18 06:47 Laboratory Results - last 24 hr 03/19/18 03/19/18 06:47 06:47 WBC 6.9 RBC 3.92 L Hgb 11.3 L Hct 32.1 L MCV 81.9 MCH 28.8 MCHC 35.1 RDW 14.3 Plt Count 289 MPV 7.9 Neut % (Auto) 50.7 Lymph % (Auto) 29.9 [place] % (Auto) 7.9 Eos % (Auto) 9.3 H Baso % (Auto) 2.2 H Neut # (Auto) 3.5 Lymph # (Auto) 2.1 [place] # (Auto) 0.5 Eos # (Auto) 0.6 H Baso # (Auto) 0.2 WBC Differential . Differential Comment Auto diff final Sodium 141 Potassium 3.5 Chloride 105 Carbon Dioxide 27.6 Anion Gap 8 BUN 13 Creatinine 0.76 Estimated GFR Greater than 89 Random Glucose 101 Calcium 8.3 L Phosphorus 2.6 Magnesium 2.0 Total Bilirubin 0.3 AST 21 ALT 18 Alkaline Phosphatase 54 Total Protein 6.2 L D Albumin 2.3 L Microbiology 03/16/18 01:15 Blood - Peripheral Aerobic Blood Culture - Preliminary No growth in 3 days 03/16/18 01:15 Blood - Peripheral Anaerobic Blood Culture - Preliminary No growth in 3 days 03/16/18 01:30 Blood - Peripheral Aerobic Blood Culture - Preliminary No growth in 3 days 03/16/18 01:30 Blood - Peripheral Anaerobic Blood Culture - Preliminary No growth in 3 days - Procedures PODIATRY PROCEDURES 8- Assessment and Plan - Assessment (1) Bilateral cellulitis of lower leg Code(s): L03.116 - Cellulitis of left lower limb; L03.115 - Cellulitis of right lower limb Status: Acute (2) Open wound of both legs with complication Code(s): S81.801A - Unspecified open wound, right lower leg, initial encounter; S81.802A - Unspecified open wound, left lower leg, initial encounter Status: Acute - Plan Tried to see patient today to examine legs Not in room Will try again tomorrow
[2018-03-19] MEDS ORDERED: Regadenoson Inj 0.4 MG/5 ML Syringe IV.PUSH ONE (14:22)
--- NOTE | 2018-03-19 16:31 | NM ---
EXAM DATE: 03/19/2018 4:24 PM EDT AGE/SEX: 72 years / Male INDICATIONS:Angina. . Coronary artery disease. CLINICAL DATA: This is the patient's initial encounter. Patient reports that signs and symptoms have been present for 1 day and indicates a pain score of 2/10. MEDICAL/SURGICAL HISTORY: Congestive heart failure. Hypertension. Hyperlipidemia. . COMPARISON: [facility], CHEST 1V SINGLE AP, 03/15/2018. . DOSE: 8.8 mCi Tc 99m Myoview at rest 27.5 mCi [id number] at stress 0.4 mg Lexiscan STRESS SYMPTOMS: None. EJECTION FRACTION: 60 % TECHNIQUE: The patient underwent pharmacologic stress with infusion of prescribed dose. Continuous ECG tracing was monitored during stress. Gated SPECT imaging was performed after stress and conventi onal SPECT imaging was performed at rest. The examination was performed on a SPECT/CT scanner, both attenuation and non-corrected datasets were reviewed. FINDINGS: Distribution: The maximum perfused segment at stress is in the anterior lateral wall. Perfusion Study: The pattern of perfusion at stress is within normal limits. No definite fixed or r eversible perfusion defect is identified. Gated Study: There are intact wall motion and wall thickening without hypokinetic or dyskinetic segm ents. The ejection fraction is calculated at 60%. RISK CATEGORY: Low (<1% Annual Motality Rate) CONCLUSION: 1. No fixed or reversible perfusion defect is identified. 2. Normal left ventricle wall motion and ejection fraction. Electronically signed by: Kingsley Davis MD 03/19/2018 4:30 PM EDT
[2018-03-19] MEDS ORDERED: Pharmacy Ordered Lab Info OTHER ONE (16:45)
--- NOTE | 2018-03-19 17:38 | ECG ---
Date Performed: 03/17/2018 Time Performed: 16:38:23 PTAGE: 72 years EKG: Sinus rhythm WITH OCCASIONAL VENTRICULAR PREMATURE COMPLEXES MARKED LEFT AXIS DEVIATION MODERATE INTRAVENTRICULAR CONDUCTION DELAY MODERATE VOLTAGE CRITERIA FOR LVH, CONSIDER NORMAL VARIANT NONSPECIFIC T-WAVE ABNOR MALITY ABNORMAL ECG NO PREVIOUS TRACING DOCTOR: Rom Burger Interpretating Date/Time 03/19/2018 17:33:49
--- NOTE | 2018-03-19 23:22 | P.PNADD ---
Addendum to Inpatient Note Reason for Addendum: Additional Documentation (Patient's echo and nuclear stress testing unremarkable. He is cleared for vascular surgery from a cardiac standpoint.)
[2018-03-20] MEDS: Piperacil/Tazo 3.375 GM Premix 50 ML IV.SIG SCH ×4 (03:45→21:30)
[2018-03-20] MEDS: Furosemide 40 MG Tablet PO SCH (09:06)
[2018-03-20] MEDS: amLODIPine 5 MG Tablet PO SCH (09:06)
[2018-03-20] MEDS: Senna/Docusate Sodium 8.6/50 MG Tablet PO SCH ×2 (09:07→21:30)
--- NOTE | 2018-03-20 09:31 | P.PNPOD ---
Subjective Interval history: Venous ulcers bilateral lower extremities Physical Exam Vital signs: Vital Signs 03/19/18 12:00 03/19/18 16:00 03/19/18 20:00 Temperature 97.4 F L 97.9 F 98 F Pulse Rate 63 63 67 Respiratory Rate 16 14 18 Blood Pressure 151/97 H 132/76 153/65 H Pulse Oximetry 95 94 L 96 03/20/18 00:00 03/20/18 04:00 03/20/18 08:00 Temperature 97.7 F 98.3 F 97.4 F L Pulse Rate 78 58 L 59 L Respiratory Rate 18 18 16 Blood Pressure 126/76 141/67 H 162/77 H Pulse Oximetry 98 95 96 Intake & Output 03/19/18 03/20/18 03/20/18 18:59 06:59 18:59 Intake Total 615 / 615 100 / 100 515 / 515 Output Total 600 / 600 200 / 200 Balance 15 / 15 100 / 100 315 / 315 Weight 100.6 kg Intake: IV 615 / 615 100 / 100 515 / 515 Zosyn 3.375 GM Premix 50 ML @ 100 / 100 100 / 100 100 mls/hr IV.SIG Q6H [facility] Rx#: [id number] Vancomycin Inj 1,500 MG In NS 515 / 515 Inj 500 ML @ 250 mls/hr IV.SIG Q12H [facility] Rx#:[id number] Output: Urine 600 / 600 200 / 200 Other: Date of Last Bowel Movement 03/19/18 03/20/18 # Bowel Movements 1 Narrative: Circumferential full thickness ulcerations noted to Right calf a mid-calf level. Very large. Minimal surrounding erythema. Moderate serous drainage. 50/ 50 fibrogranular base. No purulence Lateral large full thickness ulceration to left lateral calf area centrally, also with minimal erythema and moderate serous drainage. 40/60 fibrogranular base. No purulence. Medications and Allergies Active Medications: Active Medications Acetaminophen (Tylenol) 650 mg PO Q4H PRN PRN Reason: Temp > 100.4 Al Hydroxide/Mg Hydroxide (Milk Of Magnesia Liq) 30 ml PO Q12H PRN PRN Reason: Mild Constipation Amlodipine Besylate (Norvasc) 5 mg PO DAILY [facility] Last Admin: 03/20/18 09:06 Dose: 5 mg Bisacodyl (Dulcolax Supp) 10 mg RECTAL DAILY PRN PRN Reason: SEVERE CONSITIPATION Clonidine HCl (Catapres) 0.1 mg PO Q6H PRN PRN Reason: HYPERTENSION Last Admin: 03/18/18 18:11 Dose: 0.1 mg Fluconazole (Diflucan) 200 mg PO DAILY [facility] Last Admin: 03/20/18 09:06 Dose: 200 mg Furosemide (Lasix) 40 mg PO DAILY [facility] Last Admin: 03/20/18 09:06 Dose: 40 mg Piperacillin/Tazobactam/Dextrose (Zosyn 3.375 Gm Premix) 50 mls @ 100 mls/hr IV.SIG Q6H [facility] Last Admin: 03/20/18 09:01 Dose: 100 mls/hr Vancomycin HCl 1,500 mg/ (Sodium Chloride) 515 mls @ 250 mls/hr IV.SIG Q12H [facility] Last Infusion: 03/20/18 08:01 Dose: Infused Lactulose (Lactulose Liq) 30 ml PO DAILY PRN PRN Reason: SEVERE CONSITIPATION Morphine Sulfate (Morphine Inj) 4 mg IV.PUSH Q4H PRN PRN Reason: pain 6-10 Last Admin: 03/16/18 19:32 Dose: 4 mg Ondansetron HCl (Zofran Inj) 4 mg IV.PUSH Q6H PRN PRN Reason: NAUSEA OR VOMITING Pharmacy Profile Note (Vancomycin Consult Pharmacy) 1 each OTHER UNSCH PRN PRN Reason: Pharmacy to dose Pravastatin Sodium (Pravachol) 40 mg PO QPM [facility] Last Admin: 03/19/18 18:00 Dose: 40 mg Senna/Docusate Sodium (Renee-Colace) 1 tab PO BID [facility] Last Admin: 03/20/18 09:07 Dose: Not Given Sennosides (Senokot) 17.2 mg PO Q12H PRN PRN Reason: Moderate Constipation Allergies Allergy/AdvReac Type Severity Reaction Status Date / Time No Known Allergies Allergy Verified 03/15/18 21:47 Home Medications Medication Instructions Recorded Confirmed Type furosemide [Lasix] 40 mg PO DAILY 03/15/18 03/15/18 History simvastatin 20 mg PO QPM 03/15/18 03/15/18 History Results - Labs CBC & Chem 7: 03/19/18 06:47 03/19/18 06:47 Laboratory Results - last 24 hr 03/19/18 03/20/18 17:26 02:42 Vancomycin Trough 24.1 H Random Vancomycin 29.4 Microbiology 03/16/18 01:15 Blood - Peripheral Aerobic Blood Culture - Preliminary No growth in 3 days 03/16/18 01:15 Blood - Peripheral Anaerobic Blood Culture - Preliminary No growth in 3 days 03/16/18 01:30 Blood - Peripheral Aerobic Blood Culture - Preliminary No growth in 3 days 03/16/18 01:30 Blood - Peripheral Anaerobic Blood Culture - Preliminary No growth in 3 days - Imaging Impressions Myocardial Perfusion Scan Nuc Med 03/19/18 00:00 CONCLUSION: 1. No fixed or reversible perfusion defect is identified. 2. Normal left ventricle wall motion and ejection fraction. - Procedures PODIATRY PROCEDURES 8 Assessment and Plan - Assessment (1) Bilateral cellulitis of lower leg Code(s): L03.116 - Cellulitis of left lower limb; L03.115 - Cellulitis of right lower limb Status: Acute (2) Open wound of both legs with complication Code(s): S81.801A - Unspecified open wound, right lower leg, initial encounter; S81.802A - Unspecified open wound, left lower leg, initial encounter Status: Acute - Plan Patient to undergo revascularization left lower extremity this week. Will likely coordinate later in the week to surgically debride ulcers. Likely plan will be for patient to follow up regularly in wound care center and patient will need unna boot dressings weekly to bilateral lower extremities per home health to maintain compression for wound healing to occur.
--- NOTE | 2018-03-20 11:02 | P.PNVS ---
Subjective Subjective/Hospital Course: Patient and diagnostic studies evaluated Full consult dictated We will continue to follow CTA with runoff ordered Thanks Ivette 03/17/2018 The patient actually has bilateral palpable femoral pulses and then no distal pulses on palpation. He has dopplerable popliteal pulses, and below that, I cannot detect any pulse. The patient has severe stigmata of chronic venous stasis and chronic venous insufficiency signified by liposclerosis, hemosiderosis, organized edema and early beginnings of elephantiasis. In addition, the patient has large ulcers on the left leg medial and lateral aspects. Along the lateral aspect, it is going really deep, perhaps even to the bone, and on the medial aspect, it is shallow. In addition, the patient has smaller ulcers over the right lower leg. He has swelling over both feet and clearly infection of the toenails, probably a combination of fungal and bacterial. CTA with runoff confirms the clinical impression. Patient has good inflow with scattered minimal disease in iliac and common femoral arteries and then complete occlusion of bilateral SFAs. Popliteal arteries reconstitute just above the knee and left one is diseased more than the right one. From the ear patient has flow in all 3 vessels but these a small throughout Patient will need left and right femoral-popliteal bypass but I would wait for another few days for these ulcers to clean up because we are likely to put PTFE graft and if this got infected it would be pretty catastrophic issue to deal with. We will give patient another few days of antibiotics and local wound care and then proceed next week with a left femoral-popliteal bypass. Time patient will require basic cardiac workup is usual for vascular surgery 03/19/2018 Patient with above noted anatomical situation with bilateral SFA occlusions In absence of any further intervention patient will lose both legs below the level of the knee within next few months We will proceed with left femoral-popliteal bypass early next week and then probably right side several weeks later Discussed with patient 03/20/2018 Patient doing well at this time Based on patient's presentation and comorbidities as well as wound care I decided to postpone any revascularization as far out as I can however at this time patient will need to revascularize the left leg sooner than later in order to give the best chance heal these ulcers We will go ahead with left femoral-popliteal bypass on Wednesday Objective Vital Signs / I&O: Vital Signs 03/19/18 12:00 03/19/18 16:00 03/19/18 20:00 Temperature 97.4 F L 97.9 F 98 F Pulse Rate 63 63 67 Respiratory Rate 16 14 18 Blood Pressure 151/97 H 132/76 153/65 H Pulse Oximetry 95 94 L 96 03/20/18 00:00 03/20/18 04:00 03/20/18 08:00 Temperature 97.7 F 98.3 F 97.4 F L Pulse Rate 78 58 L 59 L Respiratory Rate 18 18 16 Blood Pressure 126/76 141/67 H 162/77 H Pulse Oximetry 98 95 96 Intake & Output 03/19/18 03/20/18 03/20/18 18:59 06:59 18:59 Intake Total 615 / 615 100 / 100 565 / 565 Output Total 600 / 600 200 / 200 Balance 100 / 100 365 / 365 Weight 100.6 kg Intake: IV 615 / 615 100 / 100 565 / 565 Zosyn 3.375 GM Premix 50 ML @ 100 / 100 100 / 100 50 / 50 100 mls/hr IV.SIG Q6H [facility] Rx#: [id number] Vancomycin Inj 1,500 MG In NS 515 / 515 Inj 500 ML @ 250 mls/hr IV.SIG Q12H [facility] Rx#:[id number] Output: Urine 600 / 600 200 / 200 Other: Date of Last Bowel Movement 03/19/18 03/20/18 # Bowel Movements 1 Laboratory Results - last 24 hr 03/19/18 03/20/18 17:26 02:42 Vancomycin Trough 24.1 H Random Vancomycin 29.4 Microbiology 03/16/18 01:15 Aerobic Blood Culture - Preliminary Blood - Peripheral No growth in 4 days Anaerobic Blood Culture - Preliminary No growth in 4 days 03/16/18 01:30 Aerobic Blood Culture - Preliminary Blood - Peripheral No growth in 4 days Anaerobic Blood Culture - Preliminary No growth in 4 days Impressions Myocardial Perfusion Scan Nuc Med 03/19/18 00:00 CONCLUSION: 1. No fixed or reversible perfusion defect is identified. 2. Normal left ventricle wall motion and ejection fraction.
--- NOTE | 2018-03-20 12:13 | P.PNIM ---
Subjective Interval history: Pt seen and examined. AFVSS. Denies any complaints. Pain is controlled. No CP or SOB. Awaiting fem-pop bypass scheduled for Wednesday. Physical Exam Vital signs: Vital Signs 03/19/18 12:00 03/19/18 16:00 03/19/18 20:00 Temperature 97.4 F L 97.9 F 98 F Pulse Rate 63 63 67 Respiratory Rate 16 14 18 Blood Pressure 151/97 H 132/76 153/65 H Pulse Oximetry 95 94 L 96 03/20/18 00:00 03/20/18 04:00 03/20/18 08:00 Temperature 97.7 F 98.3 F 97.4 F L Pulse Rate 78 58 L 59 L Respiratory Rate 18 18 16 Blood Pressure 126/76 141/67 H 162/77 H Pulse Oximetry 98 95 96 Intake & Output 03/19/18 03/20/18 03/20/18 18:59 06:59 18:59 Intake Total 615 / 615 100 / 100 565 / 565 Output Total 600 / 600 200 / 200 Balance 15 100 / 100 365 / 365 Weight 100.6 kg Intake: IV 615 / 615 100 / 100 565 / 565 Zosyn 3.375 GM Premix 50 ML @ 100 / 100 100 / 100 50 / 50 100 mls/hr IV.SIG Q6H [facility] Rx#: [id number] Vancomycin Inj 1,500 MG In NS 515 / 515 Inj 500 ML @ 250 mls/hr IV.SIG Q12H [facility] Rx#:[id number] Output: Urine 600 / 600 200 / 200 Other: Date of Last Bowel Movement 03/19/18 03/20/18 # Bowel Movements 1 Narrative: GENERAL: WN, WD male resting in bed in NAD. HEENT: AT/NC. Pupils equal and round. MMM. Poor dentition. HEART: RRR no m/r/g. LUNGS: CTAB without wheezes or crackles. ABDOMEN: +BS, soft, NT, ND. EXTREMITIES: Bilateral LE wrapped in dressing. Diminished pedal pulses. NEURO: Awake and alert. Results - Labs CBC & Chem 7: 03/19/18 06:47 03/19/18 06:47 Laboratory Results - last 24 hr 03/19/18 03/20/18 17:26 02:42 Vancomycin Trough 24.1 H Random Vancomycin 29.4 Microbiology 08/22/18 01:15 Blood - Peripheral Aerobic Blood Culture - Preliminary No growth in 4 days 03/16/18 01:15 Blood - Peripheral Anaerobic Blood Culture - Preliminary No growth in 4 days 03/16/18 01:30 Blood - Peripheral Aerobic Blood Culture - Preliminary No growth in 4 days 03/16/18 01:30 Blood - Peripheral Anaerobic Blood Culture - Preliminary No growth in 4 days - Imaging Impressions Myocardial Perfusion Scan Nuc Med 03/19/18 00:00 CONCLUSION: 1. No fixed or reversible perfusion defect is identified. 2. Normal left ventricle wall motion and ejection fraction. - Procedures 03/16 bedside debridement of toenails by podiatry Assessment and Plan - Assessment (1) Bilateral cellulitis of lower leg Code(s): L03.116 - Cellulitis of left lower limb; L03.115 - Cellulitis of right lower limb Status: Acute (2) Open wound of both legs with complication Code(s): S81.801A - Unspecified open wound, right lower leg, initial encounter; S81.802A - Unspecified open wound, left lower leg, initial encounter Status: Acute - Plan 72 year old male with CHD, venous stasis disease, and HLD admitted on 03/15 for bilateral LE wounds x 6 months. 1. Bilateral lower extremity cellulitis, ulcers, L>R - Not septic, no leukocytosis or fever - ESR and CRP elevated - MRI with no signs of osteomyelitis but there is minimal myositis of the left lateral leg as well as generalized subcutaneous edema - ID following; on Zosyn and Diflucan - Podiatry and vascular surgery following; planning for wound debridement and left fem-pop bypass on Wednesday - Patient underwent 2D echo and nuclear stress test for cardiac clearance both of which were unremarkable - Wound care following - Blood cultures negative - Wound culture growing >=3 mixed enteric gram negative rods and normal rodolfo with no predominant organism 2. CHF - 2D echo showing EF of 60-65% with normal LV size and wall thickness - Continue Lasix 3. HTN - BPs have been elevated - Increase amlodipine to 10 mg - Clonidine PRN - Continue to closely monitor 4. HLD - Continue home statin 5. Peripheral vascular disease - CTA 03/17 showing occluded bilateral SFAs - On a statin - Would benefit from ASA but will plan on starting once no further surgical intervention warranted 6. Pre-diabetes - A1c 6.3 - Counseled on diet and exercise - Will need close follow-up as an outpatient DVT prophylaxis: Heparin Q12H Discussed Condition With: Patient
[2018-03-20] MEDS: Heparin - SQ 10,000 UNITS/ML Vial SQ SCH (21:29)
[2018-03-20] MEDS: Morphine Inj 4 MG/ML Vial IV.PUSH PRN (21:30)
[2018-03-21] MEDS: Piperacil/Tazo 3.375 GM Premix 50 ML IV.SIG SCH ×4 (02:44→21:04)
[2018-03-21] MEDS: amLODIPine 10 MG Tablet PO SCH (08:15)
[2018-03-21] MEDS: Furosemide 40 MG Tablet PO SCH (08:15)
[2018-03-21] MEDS: Senna/Docusate Sodium 8.6/50 MG Tablet PO SCH ×2 (08:16→21:04)
[2018-03-21] MEDS: Heparin - SQ 10,000 UNITS/ML Vial SQ SCH ×2 (08:16→21:04)
--- NOTE | 2018-03-21 12:22 | P.PNIM ---
Subjective Interval history: Pt seen and examined. AFVSS. No acute events. Reports pain is controlled. Denies CP, SOB. No N/V. Tolerating PO. Physical Exam Vital signs: Vital Signs 03/20/18 16:00 03/20/18 20:00 03/21/18 00:00 Temperature 98.6 F 98.2 F 97.9 F Pulse Rate 66 68 55 L Respiratory Rate 18 18 18 Blood Pressure 159/75 H 158/69 H 159/72 H Pulse Oximetry 95 94 L 95 03/21/18 04:00 03/21/18 08:00 Temperature 97.7 F 98.2 F Pulse Rate 54 L 60 Respiratory Rate 18 18 Blood Pressure 135/98 H 179/78 H Pulse Oximetry 95 93 L Intake & Output 03/20/18 03/21/18 03/21/18 18:59 06:59 18:59 Intake Total 615 / 615 50 / 50 50 / 50 Output Total 1240 / 1240 Balance -625 / -625 50 / 50 50 / 50 Weight 100.6 kg Intake: IV 615 / 615 50 / 50 50 / 50 Zosyn 3.375 GM Premix 50 ML @ 100 / 100 50 / 50 50 / 50 100 mls/hr IV.SIG Q6H [facility] Rx#: [id number] Output: Urine 1240 / 1240 Other: # Voids 3 Date of Last Bowel Movement 03/20/18 03/21/18 # Bowel Movements 1 1 Narrative: GENERAL: WN, WD male resting in bed in NAD. HEENT: AT/NC. Pupils equal and round. MMM. Poor dentition. HEART: RRR no m/r/g. LUNGS: CTAB without wheezes or crackles. ABDOMEN: +BS, soft, NT, ND. EXTREMITIES: Bilateral LE wrapped in dressing. Diminished pedal pulses. Able to wiggle all toes. MAEW. NEURO: Awake and alert. Results - Labs CBC & Chem 7: 03/19/18 06:47 03/19/18 06:47 Laboratory Results - last 24 hr 03/20/18 03/21/18 15:36 04:57 Random Vancomycin 23.1 15.2 Microbiology 03/16/18 01:15 Blood - Peripheral Aerobic Blood Culture - Final No growth in 5 days 03/16/18 01:15 Blood - Peripheral Anaerobic Blood Culture - Final No growth in 5 days 03/16/18 01:30 Blood - Peripheral Aerobic Blood Culture - Final No growth in 5 days 03/16/18 01:30 Blood - Peripheral Anaerobic Blood Culture - Final No growth in 5 days - Procedures 03/16 bedside debridement of toenails by podiatry Assessment and Plan - Assessment (1) Bilateral cellulitis of lower leg Code(s): L03.116 - Cellulitis of left lower limb; L03.115 - Cellulitis of right lower limb Status: Acute (2) Open wound of both legs with complication Code(s): S81.801A - Unspecified open wound, right lower leg, initial encounter; S81.802A - Unspecified open wound, left lower leg, initial encounter Status: Acute - Plan 72 year old male with CHD, venous stasis disease, and HLD admitted on 03/15 for bilateral LE wounds x 6 months. 03/21: Planning for vascular surgery tomorrow. Hold heparin after tonight. NPO after midnight. Continue IV antibiotics. 1. Bilateral lower extremity cellulitis, ulcers, L>R - Not septic, no leukocytosis or fever - ESR and CRP elevated - MRI with no signs of osteomyelitis but there is minimal myositis of the left lateral leg as well as generalized subcutaneous edema - ID following; on Zosyn and Diflucan - Podiatry and vascular surgery following; planning for wound debridement and left fem-pop bypass tomorrow - Patient underwent 2D echo and nuclear stress test for cardiac clearance both of which were unremarkable - Wound care following - Blood cultures negative - Wound culture growing >=3 mixed enteric gram negative rods and normal rodolfo with no predominant organism 2. CHF - 2D echo showing EF of 60-65% with normal LV size and wall thickness - Continue Lasix 3. HTN - BPs have been elevated - Increased amlodipine to 10 mg - Clonidine PRN - Continue to closely monitor 4. HLD - Continue home statin 5. Peripheral vascular disease - CTA 03/17 showing occluded bilateral SFAs - On a statin - Would benefit from ASA but will plan on starting once no further surgical intervention warranted 6. Pre-diabetes - A1c 6.3 - Counseled on diet and exercise - Will need close follow-up as an outpatient DVT prophylaxis: Heparin Q12H Discussed Condition With: Patient Discharge Planning: Once cleared by vascular and ID
--- NOTE | 2018-03-21 14:43 | P.PNVS ---
Subjective Subjective/Hospital Course: Patient and diagnostic studies evaluated Full consult dictated We will continue to follow CTA with runoff ordered Thanks Ivette 03/17/2018 The patient actually has bilateral palpable femoral pulses and then no distal pulses on palpation. He has dopplerable popliteal pulses, and below that, I cannot detect any pulse. The patient has severe stigmata of chronic venous stasis and chronic venous insufficiency signified by liposclerosis, hemosiderosis, organized edema and early beginnings of elephantiasis. In addition, the patient has large ulcers on the left leg medial and lateral aspects. Along the lateral aspect, it is going really deep, perhaps even to the bone, and on the medial aspect, it is shallow. In addition, the patient has smaller ulcers over the right lower leg. He has swelling over both feet and clearly infection of the toenails, probably a combination of fungal and bacterial. CTA with runoff confirms the clinical impression. Patient has good inflow with scattered minimal disease in iliac and common femoral arteries and then complete occlusion of bilateral SFAs. Popliteal arteries reconstitute just above the knee and left one is diseased more than the right one. From the ear patient has flow in all 3 vessels but these a small throughout Patient will need left and right femoral-popliteal bypass but I would wait for another few days for these ulcers to clean up because we are likely to put PTFE graft and if this got infected it would be pretty catastrophic issue to deal with. We will give patient another few days of antibiotics and local wound care and then proceed next week with a left femoral-popliteal bypass. Time patient will require basic cardiac workup is usual for vascular surgery 03/19/2018 Patient with above noted anatomical situation with bilateral SFA occlusions In absence of any further intervention patient will lose both legs below the level of the knee within next few months We will proceed with left femoral-popliteal bypass early next week and then probably right side several weeks later Discussed with patient 03/20/2018 Patient doing well at this time Based on patient's presentation and comorbidities as well as wound care I decided to postpone any revascularization as far out as I can however at this time patient will need to revascularize the left leg sooner than later in order to give the best chance heal these ulcers We will go ahead with left femoral-popliteal bypass on Wednesday03/21/2018 Patient this point is ready for femoral-popliteal bypass and will go with the same ahead tomorrow I explained the details of the surgery patient over the weekend Objective Vital Signs / I&O: Vital Signs 03/20/18 16:00 03/20/18 20:00 03/21/18 00:00 Temperature 98.6 F 98.2 F 97.9 F Pulse Rate 66 68 55 L Respiratory Rate 18 18 18 Blood Pressure 159/75 H 158/69 H 159/72 H Pulse Oximetry 95 94 L 95 03/21/18 04:00 03/21/18 08:00 03/21/18 12:00 Temperature 97.7 F 98.2 F 98.1 F Pulse Rate 54 L 60 60 Respiratory Rate 18 18 20 Blood Pressure 135/98 H 179/78 H 113/58 L Pulse Oximetry 95 93 L 94 L Intake & Output 03/20/18 03/21/18 03/21/18 18:59 06:59 18:59 Intake Total 615 / 615 50 / 50 100 / 100 Output Total 1240 / 1240 Balance -625 / -625 50 / 50 100 / 100 Weight 100.6 kg Intake: IV 615 / 615 50 / 50 100 / 100 Zosyn 3.375 GM Premix 50 ML @ 100 / 100 50 / 50 100 / 100 100 mls/hr IV.SIG Q6H [facility] Rx#: [id number] Output: Urine 1240 / 1240 Other: # Voids 3 Date of Last Bowel Movement 03/20/18 03/21/18 # Bowel Movements 1 1 Laboratory Results - last 24 hr 03/20/18 03/21/18 15:36 04:57 Random Vancomycin 23.1 15.2 Microbiology 03/16/18 01:15 Aerobic Blood Culture - Final Blood - Peripheral No growth in 5 days Anaerobic Blood Culture - Final No growth in 5 days 03/16/18 01:30 Aerobic Blood Culture - Final Blood - Peripheral No growth in 5 days Anaerobic Blood Culture - Final No growth in 5 days Impressions Myocardial Perfusion Scan Nuc Med 03/19/18 00:00 CONCLUSION: 1. No fixed or reversible perfusion defect is identified. 2. Normal left ventricle wall motion and ejection fraction.
[2018-03-22] MEDS: Piperacil/Tazo 3.375 GM Premix 50 ML IV.SIG SCH ×4 (03:34→20:10)
[2018-03-22] MEDS ORDERED: Chlorhexidine Gluconate 2% 1 Pack (2 Cloths) TOPICAL SCH (04:30)
[2018-03-22] MEDS ORDERED: Sodium Chlor 0.9% Inj 500 ML IV.SIG SCH (05:00)
[2018-03-22 07:10] LABS: Hemoglobin 11.9 gm/dL (13.0-17.0); Mean Corpuscular HGB Conc 32.9 % (32.0-36.0); Mean Corpuscular Hemoglobin 27.1 pg (27.0-34.0); Mean Corpuscular Volume 82.1 fL (80.0-100.0); Mean Platelet Volume 7.9 fL (7.0-11.0); Platelet Count 306 th/mm3 (150-450); Red Blood Count 4.38 mil/mm3 (4.50-5.90); Red Cell Distribution Width 14.5 % (11.6-17.2); White Blood Count 9.7 th/mm3 (4.0-11.0)
[2018-03-22 07:35] LABS: Calcium 8.4 mg/dL (8.5-10.1); Carbon Dioxide 27.7 meq/L (21.0-32.0); Potassium 3.4 meq/L (3.5-5.1)
[2018-03-22] MEDS: Furosemide 40 MG Tablet PO SCH (08:44)
[2018-03-22] MEDS: Senna/Docusate Sodium 8.6/50 MG Tablet PO SCH ×2 (08:44→20:12)
[2018-03-22] MEDS: amLODIPine 10 MG Tablet PO SCH (08:44)
[2018-03-22] MEDS ORDERED: Heparin - SQ 10,000 UNITS/ML Vial ONE (10:48)
[2018-03-22] MEDS ORDERED: Heparin 10,000 UNITS/10 ML Vial (for IV use) ONE (10:49)
[2018-03-22] MEDS ORDERED: Lidocaine 2% Inj 50 ML Vial ONE (10:49)
[2018-03-22] MEDS ORDERED: Protamine Sulfate Inj 50 MG/5 ML Vial ONE (10:49)
--- NOTE | 2018-03-22 11:14 | P.PNIM ---
Subjective Interval history: Patient seen and examined this morning. AFVSS. No acute events overnight. Denies any complaints. Pain is controlled. Going for fempop bypass today. Physical Exam Vital signs: Vital Signs 03/21/18 12:00 03/21/18 16:00 03/21/18 20:00 Temperature 98.1 F 98 F 97.6 F Pulse Rate 60 62 66 Respiratory Rate 20 20 18 Blood Pressure 113/58 L 125/66 138/66 Pulse Oximetry 94 L 92 L 95 03/22/18 00:00 03/22/18 04:00 03/22/18 08:00 Temperature 98.6 F 98.2 F 98.7 F Pulse Rate 57 L 60 54 L Respiratory Rate 18 18 20 Blood Pressure 142/67 H 140/65 175/72 H Pulse Oximetry 95 95 93 L Intake & Output 03/21/18 03/22/18 03/22/18 18:59 06:59 18:59 Intake Total 150 / 150 100 / 100 50 / 50 Output Total 300 / 300 Balance 150 / 150 -200 / -200 50 / 50 Intake: IV 150 / 150 100 / 100 50 / 50 Zosyn 3.375 GM Premix 50 ML @ 150 / 150 100 / 100 50 / 50 100 mls/hr IV.SIG Q6H RICKI Rx#: [id number] Output: Urine 300 / 300 Other: # Voids 2 Date of Last Bowel Movement 03/21/18 03/21/18 # Bowel Movements 1 # Incontinent Bowel Movements 1 Narrative: GENERAL: WN, WD male resting in bed in NAD. HEENT: AT/NC. Pupils equal and round. MMM. Poor dentition. HEART: RRR no m/r/g. LUNGS: CTAB without wheezes or crackles. ABDOMEN: +BS, soft, NT, ND. EXTREMITIES: Bilateral LE wrapped in dressing. Diminished pedal pulses. Able to wiggle all toes. MAEW. NEURO: Awake and alert. - Urinary Catheter Management Indwelling Urethral Catheter Cath placed during this visit: yes Reason for continuing: Other continuation reason Insertion date: 03/22/18 Insertion time: 12:30 Results - Labs CBC & Chem 7: 03/22/18 05:54 03/22/18 05:54 Laboratory Results - last 24 hr 03/21/18 03/22/18 03/22/18 16:15 05:54 05:54 WBC 9.7 RBC 4.38 L Hgb 11.9 L Hct 36.0 L MCV 82.1 MCH 27.1 MCHC 32.9 RDW 14.5 Plt Count 306 MPV 7.9 Sodium 143 Potassium 3.4 L Chloride 106 Carbon Dioxide 27.7 Anion Gap 9 BUN 24 H Creatinine 1.60 H Estimated GFR 42 L Random Glucose 106 Calcium 8.4 L Blood Type A Positive Blood Type Recheck Required Antibody Screen Negative Microbiology 03/16/18 01:15 Blood - Peripheral Aerobic Blood Culture - Final No growth in 5 days 03/16/18 01:15 Blood - Peripheral Anaerobic Blood Culture - Final No growth in 5 days 03/16/18 01:30 Blood - Peripheral Aerobic Blood Culture - Final No growth in 5 days 03/16/18 01:30 Blood - Peripheral Anaerobic Blood Culture - Final No growth in 5 days - Procedures 03/16 bedside debridement of toenails by podiatry Assessment and Plan - Assessment (1) Bilateral cellulitis of lower leg Code(s): L03.116 - Cellulitis of left lower limb; L03.115 - Cellulitis of right lower limb Status: Acute (2) Open wound of both legs with complication Code(s): S81.801A - Unspecified open wound, right lower leg, initial encounter; S81.802A - Unspecified open wound, left lower leg, initial encounter Status: Acute - Plan 72 year old male with CHD, venous stasis disease, and HLD admitted on 03/15 for bilateral LE wounds x 6 months. 03/22: Fem-pop bypass today. Holding Lasix and starting IV fluids for GIULIA as detailed below. 1. Bilateral lower extremity cellulitis, ulcers, L>R - Not septic, no leukocytosis or fever - ESR and CRP elevated - MRI with no signs of osteomyelitis but there is minimal myositis of the left lateral leg as well as generalized subcutaneous edema - ID following; on Zosyn and Diflucan - Podiatry and vascular surgery following; planning for wound debridement and left fem-pop bypass today - Patient underwent 2D echo and nuclear stress test for cardiac clearance both of which were unremarkable - Wound care following - Blood cultures negative - Wound culture growing >=3 mixed enteric gram negative rods and normal rodolfo with no predominant organism 2. GIULIA - Creatinine more than doubled from 1.6 from 0.76 three days ago - Possibly from nuclear perfusion scan and recent contrast given during CTA - Start NS at 100 ml/hr - Hold Lasix - Follow-up renal panel tomorrow - If worsens Zosyn may need to be redosed 3. Diastolic CHF - 2D echo showing EF of 60-65% with normal LV size and wall thickness - Continue Lasix 4. HTN - BPs continue to be elevated - Continue Amlodipine 10 mg - Add hydralazine 25 mg BID - Clonidine PRN - Continue to closely monitor 5. HLD - Continue home statin 6. Peripheral vascular disease - CTA 03/17 showing occluded bilateral SFAs - On a statin - Would benefit from ASA but will plan on starting once no further surgical intervention warranted 7. Pre-diabetes - A1c 6.3 - Counseled on diet and exercise - Will need close follow-up as an outpatient DVT prophylaxis: Heparin held secondary to procedure Discharge Planning: Once cleared by vascular and ID
[2018-03-22] MEDS ORDERED: fentaNYL Citrate Inj 100 MCG/2 ML Ampul ONE (15:33)
[2018-03-22] MEDS: Sod Chloride 0.9% Inj 1,000 ML IV.CONT SCH (17:20)
[2018-03-22] MEDS ORDERED: Lidocaine PF 1% Inj 5 ML Syringe INFILTRATN ONE (18:09)
[2018-03-22] MEDS ORDERED: Phenylephrine/NS 1000 MCG/10ML Syringe IV.PUSH ONE (18:09)
--- NOTE | 2018-03-22 18:23 | MP ---
cc: Meena Soria MD DATE OF OPERATION: 03/22/2018 PREOPERATIVE DIAGNOSIS: Ischemia of both legs, ulcers, both legs, bilateral superior femoral artery occlusion. POSTOPERATIVE DIAGNOSIS: Ischemia of both legs, ulcers, both legs, bilateral superior femoral artery occlusion. PROCEDURE: Left femoral popliteal bypass, left common femoral, external iliac and arthrectomy and left popliteal endarterectomy. SURGEON: Meena Soria MD ANESTHESIA: General. ESTIMATED BLOOD LOSS: 150 mL DESCRIPTION OF PROCEDURE: The patient was prepped and draped in the usual fashion. Left groin incision made, deepened down to the level of the common femoral, deep and superficial femoral arteries. These were isolated under direct vision sharply and then a vessel loop was placed right around each, respectively. Popliteal space was now opened through a median incision and then deepened down to the popliteal space where the popliteal artery was carefully isolated, from popliteal veins and vessel loops placed around it. The vessel was soft; however, I could barely appreciate any flow in it. The 8 mm ringed Prosperity-Tone graft is now chosen and passed from proximal to distal, using a Shahana Weck dilator and tunneling instrument now that the popliteal anastomosis was attendant. The Kvng the retractors were placed and then proximally a profunda clamp was placed and distally A Yasargil. Vessel was opened longitudinally with Carrillo scissors and entered. There was minimal flow in the popliteal artery. The popliteal artery is now endarterectomized in the medial plane using a Gilman dissector and [place] dissector and then a large segment of popliteal artery plaque is removed, going all the way down to the trifurcation. This comes out and now there is excellent backbleeding. The plaque is very fibrous and sort of rubbery, not like a classic a cardial sclerotic plaque would look. The 8 mm Prosperity-Tone was now cut under oblique angle with an 11 blade and then running 5-0 Prolene anastomosis was created end-to-side with PTFE graft on the vessel. Blood flow was reestablished in the vessel and a PTFE graft was flushed with heparinized saline and then the graft itself is clamped distally along the little shell tribe flow to continue. The proximal anastomosis unattended the Satinsky clamp was placed on the external iliac artery. The profunda clamped on deep femoral vessels opened longitudinally with 11 blade and Carrillo scissors over the profunda and then into the common femoral to the proximal external iliac. The patient has a huge plaque in this vessel, almost including the entire vessel. This is a soft, rubbery plaque, again very unusual appearing. This was dissected in a medial plane with the [place] dissector all the way up into the external iliac artery and the entire plaque was removed. This was followed by brisk arterial inflow flow. The Satinsky was re-clamped. PTFE graft is now cut to size and cut under an oblique angle alongside the vascular clamp and then sewn in with a running 5-0 Prolene in a spatulated fashion. Once this was completed, blood flow was reestablished in the usual ordered fashion. The patient now has a bounding palpable pulse in the popliteal artery and foot warms up readily. Meticulous hemostasis obtained with irrigation, some Surgicel and then the incision was closed in layers with 0 Vicryl and 4-0 Monocryl. Benzoin, Steri-Strips were applied and at the end of the procedure, the patient has bounding distal pulse. MD YAN Vivas/ct , 05:44 PM , 05:55 PM
[2018-03-22] MEDS: hydrALAZINE 25 MG Tablet PO SCH (20:12)
[2018-03-22] MEDS: Morphine Inj 4 MG/ML Vial IV.PUSH PRN (20:16)
[2018-03-23] MEDS: Piperacil/Tazo 3.375 GM Premix 50 ML IV.SIG SCH ×4 (03:37→23:12)
[2018-03-23] MEDS: Morphine Inj 4 MG/ML Vial IV.PUSH PRN ×3 (04:24→17:30)
[2018-03-23 07:41] LABS: Hematocrit 34.4 % (39.0-51.0); Hemoglobin 11.1 gm/dL (13.0-17.0); Mean Corpuscular HGB Conc 32.4 % (32.0-36.0); Mean Corpuscular Hemoglobin 27.2 pg (27.0-34.0); Mean Corpuscular Volume 83.8 fL (80.0-100.0); Mean Platelet Volume 7.8 fL (7.0-11.0); Platelet Count 286 th/mm3 (150-450); Red Cell Distribution Width 14.9 % (11.6-17.2); White Blood Count 10.1 th/mm3 (4.0-11.0)
[2018-03-23 08:35] LABS: Carbon Dioxide 29.2 meq/L (21.0-32.0); Potassium 3.8 meq/L (3.5-5.1)
[2018-03-23] MEDS: Senna/Docusate Sodium 8.6/50 MG Tablet PO SCH ×2 (10:11→23:12)
[2018-03-23] MEDS: hydrALAZINE 25 MG Tablet PO SCH ×2 (10:11→23:13)
[2018-03-23] MEDS: amLODIPine 10 MG Tablet PO SCH (10:11)
--- NOTE | 2018-03-23 11:51 | P.PNIM ---
Subjective Interval history: Patient reports he is feeling okay. Afebrile. No new issues. Physical Exam Vital signs: Vital Signs 03/22/18 12:00 03/22/18 15:23 03/22/18 15:30 Temperature 99.3 F 98.6 F Pulse Rate 46 L 61 56 L Respiratory Rate 18 16 16 Blood Pressure 161/70 H 143/67 H 147/67 H Pulse Oximetry 95 93 L 96 03/22/18 15:45 03/22/18 16:05 03/22/18 20:00 Temperature 98.6 F 97.7 F Pulse Rate 53 L 66 73 Respiratory Rate 18 18 18 Blood Pressure 153/67 H 154/73 H 155/70 H Pulse Oximetry 99 98 95 03/22/18 22:22 03/23/18 00:00 03/23/18 04:00 Temperature 97.6 F 98.0 F Pulse Rate 63 71 Respiratory Rate 18 18 18 Blood Pressure 140/62 162/75 H Pulse Oximetry 96 95 03/23/18 06:00 03/23/18 08:00 Temperature 98.2 F Pulse Rate 71 Respiratory Rate 18 20 Blood Pressure 166/79 H Pulse Oximetry 93 L Intake & Output 03/22/18 03/23/18 03/23/18 18:59 06:59 18:59 Intake Total 2100 / 2100 100 / 100 Output Total 870 / 870 700 / 700 Balance 1230 / 1230 -600 / -600 Intake: IV 1100 / 1100 100 / 100 LR 1000 mL Inj 1,000 ML @ 30 1000 / 1000 mls/hr IV.SIG .Q24H RICKI Rx#: [id number] Zosyn 3.375 GM Premix 50 ML @ 100 / 100 100 / 100 100 mls/hr IV.SIG Q6H RICKI Rx#: [id number] Anesthesia Amount 1000 / 1000 Output: Urine 500 / 500 Estimated Blood Loss 200 / 200 Urine Amount (Catheter) 170 / 170 700 / 700 Indwelling Urethral Catheter 170 / 170 700 / 700 Other: Date of Last Bowel Movement 03/22/18 Narrative: GENERAL: Elderly male resting in bed in NAD. HEENT: AT/NC. Pupils equal and round. MMM. Poor dentition. HEART: RRR no m/r/g. LUNGS: CTAB without wheezes or crackles. ABDOMEN: +BS, soft, NT, ND. EXTREMITIES: Bilateral LE wrapped in dressing. Diminished pedal pulses. Bilateral feet warm. Able to wiggle all toes. NEURO: Awake and alert. - Urinary Catheter Management Indwelling Urethral Catheter Cath placed during this visit: yes, but has since been removed by the nurse Reason for continuing: Decision to DC catheter Insertion date: 03/22/18 Insertion time: 12:30 Removal date: 03/23/18 Removal time: 04:31 Results - Labs CBC & Chem 7: 03/23/18 06:58 03/23/18 06:58 Laboratory Results - last 24 hr 03/23/18 03/23/18 06:58 06:58 WBC 10.1 RBC 4.10 L Hgb 11.1 L Hct 34.4 L MCV 83.8 MCH 27.2 MCHC 32.4 RDW 14.9 Plt Count 286 MPV 7.8 Sodium 143 Potassium 3.8 Chloride 108 H Carbon Dioxide 29.2 Anion Gap 6 BUN 20 H Creatinine 1.36 H Estimated GFR 51 L Random Glucose 100 Calcium 8.0 L - Procedures 03/16 bedside debridement of toenails by podiatry Assessment and Plan - Assessment (1) Bilateral cellulitis of lower leg Code(s): L03.116 - Cellulitis of left lower limb; L03.115 - Cellulitis of right lower limb Status: Acute (2) Open wound of both legs with complication Code(s): S81.801A - Unspecified open wound, right lower leg, initial encounter; S81.802A - Unspecified open wound, left lower leg, initial encounter Status: Acute - Plan 72 year old male with CHD, venous stasis disease, and HLD admitted on 03/15 for bilateral LE wounds x 6 months. Patient underwent femoropopliteal bypass on the left. Bilateral lower extremity cellulitis, ulcers, L>R - Not septic, no leukocytosis or fever - ESR and CRP elevated - MRI with no signs of osteomyelitis but there is minimal myositis of the left lateral leg as well as generalized subcutaneous edema - ID following; on Zosyn and Diflucan - Podiatry and vascular surgery following; planning for wound debridement and left fem-pop bypass today - Patient underwent 2D echo and nuclear stress test for cardiac clearance both of which were unremarkable - Wound care following - Blood cultures negative - Wound culture growing >=3 mixed enteric gram negative rods and normal rodolfo with no predominant organism Peripheral vascular disease - CTA 03/17 showing occluded bilateral SFAs - On a statin -Patient is status post left femoropopliteal. Will need intervention on the right in a month or so per vascular surgery. GIULIA -Improving - Possibly from nuclear perfusion scan and recent contrast given during CTA -Continue NS at 100 ml/hr - Hold Lasix - Follow-up renal panel tomorrow Diastolic CHF - 2D echo showing EF of 60-65% with normal LV size and wall thickness -Lasix on hold. HTN - Continue Amlodipine 10 mg - hydralazine 25 mg BID - Clonidine PRN - Continue to closely monitor HLD - Continue home statin Pre-diabetes - A1c 6.3 - Counseled on diet and exercise - Will need close follow-up as an outpatient DVT prophylaxis: Heparin Discharge Planning: Will need SNF placement. Follow renal functions in a.m. Anticipate discharge to half-way facility in the next 24-48 hours.
--- NOTE | 2018-03-23 13:33 | P.PNVS ---
Subjective Subjective/Hospital Course: Patient and diagnostic studies evaluated Full consult dictated We will continue to follow CTA with runoff ordered Thanks Ivette 03/17/2018 The patient actually has bilateral palpable femoral pulses and then no distal pulses on palpation. He has dopplerable popliteal pulses, and below that, I cannot detect any pulse. The patient has severe stigmata of chronic venous stasis and chronic venous insufficiency signified by liposclerosis, hemosiderosis, organized edema and early beginnings of elephantiasis. In addition, the patient has large ulcers on the left leg medial and lateral aspects. Along the lateral aspect, it is going really deep, perhaps even to the bone, and on the medial aspect, it is shallow. In addition, the patient has smaller ulcers over the right lower leg. He has swelling over both feet and clearly infection of the toenails, probably a combination of fungal and bacterial. CTA with runoff confirms the clinical impression. Patient has good inflow with scattered minimal disease in iliac and common femoral arteries and then complete occlusion of bilateral SFAs. Popliteal arteries reconstitute just above the knee and left one is diseased more than the right one. From the ear patient has flow in all 3 vessels but these a small throughout Patient will need left and right femoral-popliteal bypass but I would wait for another few days for these ulcers to clean up because we are likely to put PTFE graft and if this got infected it would be pretty catastrophic issue to deal with. We will give patient another few days of antibiotics and local wound care and then proceed next week with a left femoral-popliteal bypass. Time patient will require basic cardiac workup is usual for vascular surgery 03/19/2018 Patient with above noted anatomical situation with bilateral SFA occlusions In absence of any further intervention patient will lose both legs below the level of the knee within next few months We will proceed with left femoral-popliteal bypass early next week and then probably right side several weeks later Discussed with patient 03/20/2018 Patient doing well at this time Based on patient's presentation and comorbidities as well as wound care I decided to postpone any revascularization as far out as I can however at this time patient will need to revascularize the left leg sooner than later in order to give the best chance heal these ulcers We will go ahead with left femoral-popliteal bypass on Wednesday03/21/2018 Patient this point is ready for femoral-popliteal bypass and will go with the same ahead tomorrow I explained the details of the surgery patient over the weekend 03/23/2018 Status post left femoral-popliteal bypass with left external iliac and common femoral endarterectomy patch. Patient is brisk dopplerable pulse in his popliteal artery graft is widely patent incisions are clean and dry and foot is warm Nothing to add to care at this time Patient will need right femoral-popliteal bypass probably within the next month or so Objective Vital Signs / I&O: Vital Signs 03/22/18 15:23 03/22/18 15:30 03/22/18 15:45 Temperature 98.6 F Pulse Rate 61 56 L 53 L Respiratory Rate 16 16 18 Blood Pressure 143/67 H 147/67 H 153/67 H Pulse Oximetry 93 L 96 99 03/22/18 16:05 03/22/18 20:00 03/22/18 22:22 Temperature 98.6 F 97.7 F Pulse Rate 66 73 Respiratory Rate 18 18 18 Blood Pressure 154/73 H 155/70 H Pulse Oximetry 98 95 03/23/18 00:00 03/23/18 04:00 03/23/18 06:00 Temperature 97.6 F 98.0 F Pulse Rate 63 71 Respiratory Rate 18 18 18 Blood Pressure 140/62 162/75 H Pulse Oximetry 96 95 03/23/18 08:00 03/23/18 12:00 Temperature 98.2 F 99.0 F Pulse Rate 71 70 Respiratory Rate 20 20 Blood Pressure 166/79 H 139/65 Pulse Oximetry 93 L 95 Intake & Output 03/22/18 03/23/18 03/23/18 18:59 06:59 18:59 Intake Total 2100 / 2100 100 / 100 Output Total 870 / 870 700 / 700 Balance 1230 / 1230 -600 / -600 Intake: IV 1100 / 1100 100 / 100 LR 1000 mL Inj 1,000 ML @ 30 1000 / 1000 mls/hr IV.SIG .Q24H RICKI Rx#: [id number] Zosyn 3.375 GM Premix 50 ML @ 100 / 100 100 / 100 100 mls/hr IV.SIG Q6H RICKI Rx#: [id number] Anesthesia Amount 1000 / 1000 Output: Urine 500 / 500 Estimated Blood Loss 200 / 200 Urine Amount (Catheter) 170 / 170 700 / 700 Indwelling Urethral Catheter 170 / 170 700 / 700 Other: Date of Last Bowel Movement 03/22/18 03/22/18 Laboratory Results - last 24 hr 03/23/18 03/23/18 06:58 06:58 WBC 10.1 RBC 4.10 L Hgb 11.1 L Hct 34.4 L MCV 83.8 MCH 27.2 MCHC 32.4 RDW 14.9 Plt Count 286 MPV 7.8 Sodium 143 Potassium 3.8 Chloride 108 H Carbon Dioxide 29.2 Anion Gap 6 BUN 20 H Creatinine 1.36 H Estimated GFR 51 L Random Glucose 100 Calcium 8.0 L
--- NOTE | 2018-03-23 13:42 | P.PNID ---
Subjective Remarks: Patient notes pain in the feet. Status post left femoropopliteal bypass and left external iliac and common femoral endarterectomy patch. No fever. Wound culture showed normal rodolfo. 72-year-old white male who was admitted to the hospital with chronic lower extremity wounds. The patient is a poor historian. He tells me that he has had the wounds on his legs for 9 years. The edema and the wounds were worsening and therefore, he presented to the emergency department for evaluation. He has been having drainage coming from the legs, particularly the left leg where he has 2 ulcerations, including a large ulceration measuring approximately 8 x 6 cm at the lateral aspect and another one at the inner posterior tibia of approximately 4 x 4 cm. The legs are very dry and have hypertrophic tissue and superficial peeling of the skin. Past Medical History: PAST MEDICAL HISTORY: Hyperlipidemia, congestive heart failure. The patient also reports that he has had asthma in the past. Allergies/Adverse Reactions: Allergies No Known Allergies Allergy (Verified 03/15/18 21:47) Objective Vital Signs 03/22/18 15:23 03/22/18 15:30 03/22/18 15:45 Temperature 98.6 F Pulse Rate 61 56 L 53 L Respiratory Rate 16 16 18 Blood Pressure 143/67 H 147/67 H 153/67 H Pulse Oximetry 93 L 96 99 03/22/18 16:05 03/22/18 20:00 03/22/18 22:22 Temperature 98.6 F 97.7 F Pulse Rate 66 73 Respiratory Rate 18 18 18 Blood Pressure 154/73 H 155/70 H Pulse Oximetry 98 95 03/23/18 00:00 03/23/18 04:00 03/23/18 06:00 Temperature 97.6 F 98.0 F Pulse Rate 63 71 Respiratory Rate 18 18 18 Blood Pressure 140/62 162/75 H Pulse Oximetry 96 95 03/23/18 08:00 03/23/18 12:00 Temperature 98.2 F 99.0 F Pulse Rate 71 70 Respiratory Rate 20 20 Blood Pressure 166/79 H 139/65 Pulse Oximetry 93 L 95 Intake & Output 03/22/18 03/23/18 03/23/18 18:59 06:59 18:59 Intake Total 2100 / 2100 100 / 100 Output Total 870 / 870 700 / 700 Balance 1230 / 1230 -600 / -600 Intake: IV 1100 / 1100 100 / 100 LR 1000 mL Inj 1,000 ML @ 30 1000 / 1000 mls/hr IV.SIG .Q24H RICKI Rx#: [id number] Zosyn 3.375 GM Premix 50 ML @ 100 / 100 100 / 100 100 mls/hr IV.SIG Q6H RICKI Rx#: [id number] Anesthesia Amount 1000 / 1000 Output: Urine 500 / 500 Estimated Blood Loss 200 / 200 Urine Amount (Catheter) 170 / 170 700 / 700 Indwelling Urethral Catheter 170 / 170 700 / 700 Other: Date of Last Bowel Movement 03/22/18 03/22/18 03/16/18 01:15 Blood - Peripheral Aerobic Blood Culture - Final No growth in 5 days 03/16/18 01:15 Blood - Peripheral Anaerobic Blood Culture - Final No growth in 5 days 03/16/18 01:30 Blood - Peripheral Aerobic Blood Culture - Final No growth in 5 days 03/16/18 01:30 Blood - Peripheral Anaerobic Blood Culture - Final No growth in 5 days Lab - Hematology Results 03/22/18 03/23/18 05:54 06:58 WBC 9.7 10.1 RBC 4.38 L 4.10 L Hgb 11.9 L 11.1 L Hct 36.0 L 34.4 L MCV 82.1 83.8 MCH 27.1 27.2 MCHC 32.9 32.4 RDW 14.5 14.9 Plt Count 306 286 MPV 7.9 7.8 Lab - Chemistry Results 03/22/18 03/23/18 05:54 06:58 Sodium 143 143 Potassium 3.4 L 3.8 Chloride 106 108 H Carbon Dioxide 27.7 29.2 Anion Gap 9 6 BUN 24 H 20 H Creatinine 1.60 H 1.36 H Estimated GFR 42 L 51 L Random Glucose 106 100 Calcium 8.4 L 8.0 L Imaging: ITS Impressions Chest X-Ray 03/15/18 21:01 CONCLUSION: The lungs are clear. Tibia/Fibula X-Ray 03/15/18 21:09 CONCLUSION: Prominent edema/induration of the soft tissues of the leg. The osseous structures are intact. Lower Extremity MRI 03/16/18 00:00 CONCLUSION: 1. Superficial wound lateral aspect of the leg that has extended down to the muscle with minimal myositis 2. Generalized subcutaneous edema. Aorta w/Runoff CTA 03/17/18 00:03 CONCLUSION: 1. No significant aortoiliac inflow stenosis 2. Bilateral SFA occlusions. 3. Below-knee popliteal is a satisfactory target on the right 4. Distalmost left popliteal and trifurcation are relatively healthy in appearance 5. Large right-sided bowel containing inguinal hernia. Fat-containing left inguinal hernia. Myocardial Perfusion Scan [facility] 03/19/18 00:00 CONCLUSION: 1. No fixed or reversible perfusion defect is identified. 2. Normal left ventricle wall motion and ejection fraction. Physical Exam: PHYSICAL EXAMINATION: GENERAL: No acute distress. HEENT: No icterus. SIDNEY, EOMI. Oropharynx, mucosa moist, very poor dentition with multiple erosions of the teeth. NECK: Supple without adenopathy. LUNGS: Decreased breath sounds. HEART: Regular S1, S2. No murmurs, rubs or gallops. ABDOMEN: Bowel sounds present. Soft, nontender. EXTREMITIES: Both lower extremities have chronic superficial ulcerations, peeling of the skin and hypertrophic changes. There is a large ulceration at the lateral aspect of the left leg and also, the inner aspect has another ulceration of a smaller size. Decreased edema. SKIN: No diffuse rash. NEUROLOGIC: No gross focal finding. PSYCHIATRIC: Calm and cooperative Assessment and Plan - Plan IMPRESSION: 1. Bilateral lower extremity cellulitis. 2. Chronic ulcerations of the left leg with MRI changes suggesting myositis. 3. Venostasis. 4. Peripheral vascular disease. Patient status post femoropopliteal bypass. RECOMMENDATIONS: 1. Continue piperacillin/tazobactam. 2. Continue p.o. Diflucan. He can be changed to p.o. Levaquin for 10 days on discharge. Needs follow-up with wound care as well.
[2018-03-23] MEDS: Sod Chloride 0.9% Inj 1,000 ML IV.CONT SCH (17:35)
--- NOTE | 2018-03-23 22:06 | P.PNPOD ---
Subjective Interval history: Patient seen bedside. Anticipating going home and he would like to know how much longer he will be in house. Physical Exam Vital signs: Vital Signs 03/22/18 22:22 03/23/18 00:00 03/23/18 04:00 Temperature 97.6 F 98.0 F Pulse Rate 63 71 Respiratory Rate 18 18 18 Blood Pressure 140/62 162/75 H Pulse Oximetry 96 95 03/23/18 06:00 03/23/18 08:00 03/23/18 12:00 Temperature 98.2 F 99.0 F Pulse Rate 71 70 Respiratory Rate 18 20 20 Blood Pressure 166/79 H 139/65 Pulse Oximetry 93 L 95 03/23/18 16:00 Temperature 99.3 F Pulse Rate 75 Respiratory Rate 16 Blood Pressure 160/70 H Pulse Oximetry 94 L Intake & Output 03/23/18 03/23/18 03/24/18 06:59 18:59 06:59 Intake Total 100 / 100 1820 / 1820 Output Total 700 / 700 Balance -600 / -600 1820 / 1820 Intake: IV 100 / 100 1100 / 1100 NS Inj 1,000 ML @ 42 mls/hr IV. 1000 / 1000 CONT .[id number] [facility] Rx#:[id number] Zosyn 3.375 GM Premix 50 ML @ 100 / 100 100 / 100 100 mls/hr IV.SIG Q6H [facility] Rx#: [id number] Oral 720 / 720 Output: Urine Amount (Catheter) 700 / 700 Indwelling Urethral Catheter 700 / 700 Other: # Voids 3 Date of Last Bowel Movement 03/22/18 03/22/18 Narrative: Circumferential full thickness ulcerations noted to Right calf a mid-calf level. No surrounding erythema. Moderate serous drainage. 80/20 fibrogranular base. No purulence. Serous drainage. Lateral large full thickness ulceration to left lateral calf area centrally, also with no erythema and moderate serous drainage. 80/20 fibrogranular base. No purulence. Venous stasis dermatitis with brawny induration noted to bilateral LE. Medications and Allergies Active Medications: Active Medications Acetaminophen (Tylenol) 650 mg PO Q4H PRN PRN Reason: Temp > 100.4 Al Hydroxide/Mg Hydroxide (Milk Of Magnesia Liq) 30 ml PO Q12H PRN PRN Reason: Mild Constipation Amlodipine Besylate (Norvasc) 10 mg PO DAILY [facility] Last Admin: 03/23/18 10:11 Dose: 10 mg Bisacodyl (Dulcolax Supp) 10 mg RECTAL DAILY PRN PRN Reason: SEVERE CONSITIPATION Chlorhexidine Gluconate (Chlorhexidine 2% Cloth) 3 pack [employer] [facility] Stop: 03/25/18 04:23 Clonidine HCl (Catapres) 0.1 mg PO Q6H PRN PRN Reason: HYPERTENSION Last Admin: 03/21/18 08:15 Dose: 0.1 mg Clopidogrel Bisulfate (Plavix) 75 mg PO DAILY [facility] Last Admin: 03/23/18 10:15 Dose: Not Given Fluconazole (Diflucan) 200 mg PO DAILY [facility] Last Admin: 03/23/18 10:11 Dose: 200 mg Furosemide (Lasix) 40 mg PO DAILY [facility] Last Admin: 03/22/18 08:44 Dose: Not Given Heparin Sodium (Porcine) (Heparin Inj) 5,000 units SQ Q12HR [facility] Last Admin: 03/21/18 21:04 Dose: 5,000 units Hydralazine HCl (Apresoline) 25 mg PO BID [facility] Last Admin: 03/23/18 10:11 Dose: 25 mg Piperacillin/Tazobactam/Dextrose (Zosyn 3.375 Gm Premix) 50 mls @ 100 mls/hr IV.SIG Q6H [facility] Last Infusion: 03/23/18 18:35 Dose: Infused Lactated Ringer's (Lr 1000 Ml Inj) 1,000 mls @ 30 mls/hr IV.SIG .Q24H [facility] Stop: 03/25/18 04:23 Last Admin: 03/23/18 04:23 Dose: Not Given Sodium Chloride (Ns Inj) 500 mls @ 30 mls/hr IV.SIG .Q10H [facility] Stop: 03/25/18 04:23 Sodium Chloride (Ns Inj) 1,000 mls @ 42 mls/hr IV.CONT .[id number] [facility] Last Admin: 03/23/18 17:35 Dose: 42 mls/hr Lactulose (Lactulose Liq) 30 ml PO DAILY PRN PRN Reason: SEVERE CONSITIPATION Morphine Sulfate (Morphine Inj) 4 mg IV.PUSH Q4H PRN PRN Reason: pain 6-10 Last Admin: 03/23/18 17:30 Dose: 4 mg Ondansetron HCl (Zofran Inj) 4 mg IV.PUSH Q6H PRN PRN Reason: NAUSEA OR VOMITING Povidone Iodine (Betadine 5% Antisepsis Kit) 1 applicatio EACH [employer]OR [facility] Stop: 03/25/18 04:23 Pravastatin Sodium (Pravachol) 40 mg PO QPM [facility] Last Admin: 03/23/18 18:03 Dose: 40 mg Senna/Docusate Sodium (Renee-Colace) 1 tab PO BID [facility] Last Admin: 03/23/18 10:11 Dose: 1 tab Sennosides (Senokot) 17.2 mg PO Q12H PRN PRN Reason: Moderate Constipation Allergies Allergy/AdvReac Type Severity Reaction Status Date / Time No Known Allergies Allergy Verified 03/15/18 21:47 Home Medications Medication Instructions Recorded Confirmed Type furosemide [Lasix] 40 mg PO DAILY 03/15/18 03/15/18 History simvastatin 20 mg PO QPM 03/15/18 03/15/18 History Results - Labs CBC & Chem 7: 03/23/18 06:58 03/23/18 06:58 Laboratory Results - last 24 hr 03/23/18 03/23/18 06:58 06:58 WBC 10.1 RBC 4.10 L Hgb 11.1 L Hct 34.4 L MCV 83.8 MCH 27.2 MCHC 32.4 RDW 14.9 Plt Count 286 MPV 7.8 Sodium 143 Potassium 3.8 Chloride 108 H Carbon Dioxide 29.2 Anion Gap 6 BUN 20 H Creatinine 1.36 H Estimated GFR 51 L Random Glucose 100 Calcium 8.0 L - Procedures 03/16 bedside debridement of toenails by podiatry Assessment and Plan - Assessment (1) Bilateral cellulitis of lower leg Code(s): L03.116 - Cellulitis of left lower limb; L03.115 - Cellulitis of right lower limb Status: Acute (2) Open wound of both legs with complication Code(s): S81.801A - Unspecified open wound, right lower leg, initial encounter; S81.802A - Unspecified open wound, left lower leg, initial encounter Status: Acute - Plan 72 year old male s/p vascular intervention with bilateral LE venous leg ulcers Dressing changed bedside Would recommend Maxsorb Ag2+ with light compression with Unna boots Will re consult wound care management At this time no planned surgical intervention but will sign out to Dr. Huang to re evaluate bilateral venous leg ulcerations Will follow patient while in house
[2018-03-24] MEDS: Piperacil/Tazo 3.375 GM Premix 50 ML IV.SIG SCH ×2 (03:15→09:36)
[2018-03-24] MEDS: Senna/Docusate Sodium 8.6/50 MG Tablet PO SCH ×2 (09:36→21:03)
[2018-03-24] MEDS: amLODIPine 10 MG Tablet PO SCH (09:36)
[2018-03-24] MEDS: hydrALAZINE 25 MG Tablet PO SCH ×2 (09:37→22:07)
--- NOTE | 2018-03-24 10:13 | P.PNVS ---
Subjective Subjective/Hospital Course: Patient and diagnostic studies evaluated Full consult dictated We will continue to follow CTA with runoff ordered Thanks Ivette 03/17/2018 The patient actually has bilateral palpable femoral pulses and then no distal pulses on palpation. He has dopplerable popliteal pulses, and below that, I cannot detect any pulse. The patient has severe stigmata of chronic venous stasis and chronic venous insufficiency signified by liposclerosis, hemosiderosis, organized edema and early beginnings of elephantiasis. In addition, the patient has large ulcers on the left leg medial and lateral aspects. Along the lateral aspect, it is going really deep, perhaps even to the bone, and on the medial aspect, it is shallow. In addition, the patient has smaller ulcers over the right lower leg. He has swelling over both feet and clearly infection of the toenails, probably a combination of fungal and bacterial. CTA with runoff confirms the clinical impression. Patient has good inflow with scattered minimal disease in iliac and common femoral arteries and then complete occlusion of bilateral SFAs. Popliteal arteries reconstitute just above the knee and left one is diseased more than the right one. From the ear patient has flow in all 3 vessels but these a small throughout Patient will need left and right femoral-popliteal bypass but I would wait for another few days for these ulcers to clean up because we are likely to put PTFE graft and if this got infected it would be pretty catastrophic issue to deal with. We will give patient another few days of antibiotics and local wound care and then proceed next week with a left femoral-popliteal bypass. Time patient will require basic cardiac workup is usual for vascular surgery 03/19/2018 Patient with above noted anatomical situation with bilateral SFA occlusions In absence of any further intervention patient will lose both legs below the level of the knee within next few months We will proceed with left femoral-popliteal bypass early next week and then probably right side several weeks later Discussed with patient 03/20/2018 Patient doing well at this time Based on patient's presentation and comorbidities as well as wound care I decided to postpone any revascularization as far out as I can however at this time patient will need to revascularize the left leg sooner than later in order to give the best chance heal these ulcers We will go ahead with left femoral-popliteal bypass on Wednesday03/21/2018 Patient this point is ready for femoral-popliteal bypass and will go with the same ahead tomorrow I explained the details of the surgery patient over the weekend 03/23/2018 Status post left femoral-popliteal bypass with left external iliac and common femoral endarterectomy patch. Patient is brisk dopplerable pulse in his popliteal artery graft is widely patent incisions are clean and dry and foot is warm Nothing to add to care at this time Patient will need right femoral-popliteal bypass probably within the next month or so 03/24/2018 Groin and popliteal incisions are clean and dry Patient has bounding femoral pulse and excellent Doppler signal distally. Graft is widely patent and so is the popliteal artery Discharge from my point any time to follow-up in my office in about 3 weeks Objective Vital Signs / I&O: Vital Signs 03/23/18 12:00 03/23/18 16:00 03/23/18 20:00 Temperature 99.0 F 99.3 F 99.1 F Pulse Rate 70 75 73 Respiratory Rate 20 16 20 Blood Pressure 139/65 160/70 H 138/65 Pulse Oximetry 95 94 L 94 L 03/24/18 00:00 03/24/18 01:41 03/24/18 04:00 Temperature 99.1 F 97.8 F Pulse Rate 76 80 Respiratory Rate 18 16 18 Blood Pressure 149/66 H 151/64 H Pulse Oximetry 93 L 93 L 03/24/18 05:04 03/24/18 07:53 03/24/18 08:00 Temperature 97.8 F Pulse Rate 83 Respiratory Rate 16 16 18 Blood Pressure 167/77 H Pulse Oximetry 96 Intake & Output 03/23/18 03/24/18 03/24/18 18:59 06:59 18:59 Intake Total 1820 / 1820 340 / 340 Output Total 575 / 575 Balance 1820 / 1820 -235 / -235 Intake: IV 1100 / 1100 100 / 100 NS Inj 1,000 ML @ 42 mls/hr IV. 1000 / 1000 CONT .[id number] [facility] Rx#:[id number] Zosyn 3.375 GM Premix 50 ML @ 100 / 100 100 / 100 100 mls/hr IV.SIG Q6H [facility] Rx#: [id number] Oral 720 / 720 240 / 240 Output: Urine 575 / 575 Other: # Voids 3 Date of Last Bowel Movement 03/22/18 03/22/18
--- NOTE | 2018-03-24 13:56 | P.PNID ---
Subjective Remarks: Patient notes pain now in the r. foot. Status post left femoropopliteal bypass and left external iliac and common femoral endarterectomy patch. No fever. Wound culture showed normal rodolfo. 72-year-old white male who was admitted to the hospital with chronic lower extremity wounds. The patient is a poor historian. He tells me that he has had the wounds on his legs for 9 years. The edema and the wounds were worsening and therefore, he presented to the emergency department for evaluation. He has been having drainage coming from the legs, particularly the left leg where he has 2 ulcerations, including a large ulceration measuring approximately 8 x 6 cm at the lateral aspect and another one at the inner posterior tibia of approximately 4 x 4 cm. The legs are very dry and have hypertrophic tissue and superficial peeling of the skin. Past Medical History: PAST MEDICAL HISTORY: Hyperlipidemia, congestive heart failure. The patient also reports that he has had asthma in the past. Allergies/Adverse Reactions: Allergies No Known Allergies Allergy (Verified 03/15/18 21:47) Objective Vital Signs 03/23/18 16:00 03/23/18 20:00 03/24/18 00:00 Temperature 99.3 F 99.1 F 99.1 F Pulse Rate 75 73 76 Respiratory Rate 16 20 18 Blood Pressure 160/70 H 138/65 149/66 H Pulse Oximetry 94 L 94 L 93 L 03/24/18 01:41 03/24/18 04:00 03/24/18 05:04 Temperature 97.8 F Pulse Rate 80 Respiratory Rate 16 18 16 Blood Pressure 151/64 H Pulse Oximetry 93 L 03/24/18 07:53 03/24/18 08:00 Temperature 97.8 F Pulse Rate 83 Respiratory Rate 16 18 Blood Pressure 167/77 H Pulse Oximetry 96 Intake & Output 03/23/18 03/24/18 03/24/18 18:59 06:59 18:59 Intake Total 1820 / 1820 340 / 340 50 / 50 Output Total 575 / 575 Balance 1820 / 1820 -235 / -235 50 / 50 Intake: IV 1100 / 1100 100 / 100 50 / 50 NS Inj 1,000 ML @ 42 mls/hr IV. 1000 / 1000 CONT .[id number] [facility] Rx#:[id number] Zosyn 3.375 GM Premix 50 ML @ 100 / 100 100 / 100 50 / 50 100 mls/hr IV.SIG Q6H [facility] Rx#: [id number] Oral 720 / 720 240 / 240 Output: Urine 575 / 575 Other: # Voids 3 Date of Last Bowel Movement 03/22/18 03/22/18 03/16/18 01:15 Blood - Peripheral Aerobic Blood Culture - Final No growth in 5 days 03/16/18 01:15 Blood - Peripheral Anaerobic Blood Culture - Final No growth in 5 days 03/16/18 01:30 Blood - Peripheral Aerobic Blood Culture - Final No growth in 5 days 03/16/18 01:30 Blood - Peripheral Anaerobic Blood Culture - Final No growth in 5 days Lab - Hematology Results 03/23/18 06:58 WBC 10.1 RBC 4.10 L Hgb 11.1 L Hct 34.4 L MCV 83.8 MCH 27.2 MCHC 32.4 RDW 14.9 Plt Count 286 MPV 7.8 Lab - Chemistry Results 03/23/18 06:58 Sodium 143 Potassium 3.8 Chloride 108 H Carbon Dioxide 29.2 Anion Gap 6 BUN 20 H Creatinine 1.36 H Estimated GFR 51 L Random Glucose 100 Calcium 8.0 L Imaging: ITS Impressions Chest X-Ray 03/15/18 21:01 CONCLUSION: The lungs are clear. Tibia/Fibula X-Ray 03/15/18 21:09 CONCLUSION: Prominent edema/induration of the soft tissues of the leg. The osseous structures are intact. Lower Extremity MRI 03/16/18 00:00 CONCLUSION: 1. Superficial wound lateral aspect of the leg that has extended down to the muscle with minimal myositis 2. Generalized subcutaneous edema. Aorta w/Runoff CTA 03/17/18 00:03 CONCLUSION: 1. No significant aortoiliac inflow stenosis 2. Bilateral SFA occlusions. 3. Below-knee popliteal is a satisfactory target on the right 4. Distalmost left popliteal and trifurcation are relatively healthy in appearance 5. Large right-sided bowel containing inguinal hernia. Fat-containing left inguinal hernia. Myocardial Perfusion Scan Nuc Med 03/19/18 00:00 CONCLUSION: 1. No fixed or reversible perfusion defect is identified. 2. Normal left ventricle wall motion and ejection fraction. Physical Exam: PHYSICAL EXAMINATION: GENERAL: No acute distress. HEENT: No icterus. SIDNEY, EOMI. Oropharynx, mucosa moist, very poor dentition with multiple erosions of the teeth. NECK: Supple without adenopathy. LUNGS: Decreased breath sounds. HEART: Regular S1, S2. No murmurs, rubs or gallops. ABDOMEN: Bowel sounds present. Soft, nontender. EXTREMITIES: Both lower extremities have chronic superficial ulcerations, peeling of the skin and hypertrophic changes. There is a large ulceration at the lateral aspect of the left leg and also, the inner aspect has another ulceration of a smaller size. Decreased edema. SKIN: No diffuse rash. NEUROLOGIC: No gross focal finding. PSYCHIATRIC: Calm and cooperative Assessment and Plan - Plan IMPRESSION: 1. Bilateral lower extremity cellulitis. 2. Chronic ulcerations of the left leg with MRI changes suggesting myositis. 3. Venostasis. 4. Peripheral vascular disease. Patient status post femoropopliteal bypass. RECOMMENDATIONS: 1. Stop piperacillin/tazobactam. 2. Stop p.o. Diflucan. Give Po Keflex 500mg qid x 10 days
--- NOTE | 2018-03-24 14:43 | P.PNWCN ---
Wound Care Nurse Consult Description: Consult for wound management of Addison LANDERS per Dr Del Real Communicated with: Yayo PAPPAS, Recommendation: 1. Cleanse bilateral lower extremities with Hibiclens and warm water rinse,pat dry. 2. Apply Calazime cream to periwound, Apply Maxorb ll cut to fit wound base and cover with ABD. 3. Secure dressing with rolled gauze/CATALINA wrap, Sign and date all dressings. 4. Change dressing every 72 hours or as needed for dislodgement/exudate management. Additional information: Patient was seen today by loan underwriter for wound management.patient alert and oriented x3 resting in bed in no acute distress.Dressings removed from bilateral lower extremities without difficulty wounds cleansed with water and Hibiclens rinsed and pat dry.patient has mixed etiology venous/arterial ulcers to bilateral lower extremities. Left lower lat wound measures 10.2cm x 3.0cm x 0.1cm wound base is 100% moist red non granular tissue wound edges are well defined irregular in shape sloped with wound base.left Medial wound measures 4.8cm x2.2cm x0.1cm wound base is 100% moist red non granular tissue.Moderate serosanguineous exudate noted with faint odor present.Periwound moist with diffuse areas of maceration .Right lower medial wound measures 9.6cm x 1.8cm x 0.1cm wound base moist red non granular tissue wound edges well defined sloped with wound base.moderate serosanguineous exudate noted with faint odor.Calazime applied to periwounds and Maxorb ll cut to fit wound bed applied to wound bases and covered with ABD secured with rolled gauze and CATALINA wrap.Dressings signed and dated.no further questions upon writers departure. Wound/Pressure Injury - Patient Status Premedicated for Pain Prior to Dressing Change: No - Wound Left lat leg Wound Assessment: Ongoing Wound Type: Maceration Is This a Chronic Wound: No Requested from Provider a Wound Care Consult: No (Neal PAPPAS,[facility] seen 03/24) Length: 10.2 Width: 3.0 Depth: 0.1 Wound Bed Appearance: Red Surrounding Tissue Appearance: Dark Red, Taut Surrounding Tissue Temperature: Warm Drainage Description: Serosanguinous Drainage Amount: Minimal Drainage Odor: Slight Odor Dressing Status: Changed Cleansing Solution: Saline Primary Dressing: maxorb AG+, calazine lotion, CATALINA bandage Cover Dressing: catalina bandage Tape Type: Transparent Wound Dressing Change Date: 03/24/18 Right med leg Wound Assessment: Ongoing Wound Type: Maceration Is This a Chronic Wound: Yes Requested from Provider a Wound Care Consult: Yes Length: 9.6 Width: 1.8 Depth: 0.1 Wound Bed Appearance: Red Surrounding Tissue Appearance: Dark Red, Taut Surrounding Tissue Temperature: Warm Drainage Description: Serosanguinous Drainage Amount: Minimal Drainage Odor: Slight Odor Dressing Status: Dry & Intact, Changed Cleansing Solution: Saline Topical: calazime Wound Packing Type: Alginate Primary Dressing: Absorbant Pad Cover Dressing: catalina bandage Wound Dressing Change Date: 03/24/18
[2018-03-24] MEDS: Morphine Inj 4 MG/ML Vial IV.PUSH PRN ×2 (15:54→22:05)
[2018-03-24] MEDS: Sod Chloride 0.9% Inj 1,000 ML IV.CONT SCH (15:57)
--- NOTE | 2018-03-24 16:49 | P.DS ---
Date of admission: 03/15/18 22:45 Primary care physician: UNKNOWN Brief History from admission: HPI from the admitting physician: 72-year-old male with a past medical history of CHF and hyperlipidemia presents to the emergency department for evaluation of lower extremity pain and wounds. Patient states he has had wounds on his lower extremities bilaterally for the past 6 months. He states it has been worsening over that timeframe. He states there is a discharge and drainage noted. He reports subjective fever/chills. Reports pain with ambulation. Denies chest pain or shortness of breath. No abdominal pain. No nausea/vomiting/diarrhea. Patient update on day of discharge: Patient reports he is feeling okay. He is looking forward to continue rehabilitation. We discussed discharge planning at length. DS: Diagnosis - Discharge Diagnosis (1) Bilateral cellulitis of lower leg Status: Acute (2) Open wound of both legs with complication Status: Acute (3) Peripheral vascular disease Status: Acute DS: Summary Hospital Course: 72 year old male with CHD, venous stasis disease, and HLD admitted on 03/15 for bilateral LE wounds x 6 months. Patient underwent femoropopliteal bypass on the left. Treatment course detailed below: Bilateral lower extremity cellulitis, ulcers, L>R - Not septic, no leukocytosis or fever - ESR and CRP elevated - MRI with no signs of osteomyelitis but there is minimal myositis of the left lateral leg as well as generalized subcutaneous edema - ID followed the patient and he was treated with Zosyn and Diflucan. - Podiatry and vascular surgery followed the patient. He underwent left femoropopliteal bypass - Patient underwent 2D echo and nuclear stress test for cardiac clearance both of which were unremarkable -Patient to continue with wound care at the halfway facility and follow- up outpatient with vascular surgery for intervention on the right in 3-4 weeks. -He is discharged on oral Levaquin and Diflucan per ID recommendations for an additional 10 days. Peripheral vascular disease - CTA 03/17 showing occluded bilateral SFAs - On a statin -Patient is status post left femoropopliteal. Will need intervention on the right in a month or so per vascular surgery. GIULIA -Improved with IV fluids - Possibly from nuclear perfusion scan and recent contrast given during CTA Diastolic CHF - 2D echo showing EF of 60-65% with normal LV size and wall thickness -Lasix was initially put on hold. Can resume on discharge. HTN - Continue Amlodipine 10 mg - hydralazine 25 mg BID HLD - Continue home statin Pre-diabetes - A1c 6.3 - Counseled on diet and exercise - Will need close follow-up as an outpatient - Time Spent with Patient Total time spent providing and/or coordinating discharge services: Greater than 30 minutes Exam Vital signs: Vital Signs 03/23/18 20:00 03/24/18 00:00 03/24/18 01:41 Temperature 99.1 F 99.1 F Pulse Rate 73 76 Respiratory Rate 20 18 16 Blood Pressure 138/65 149/66 H Pulse Oximetry 94 L 93 L 03/24/18 04:00 03/24/18 05:04 03/24/18 07:53 Temperature 97.8 F Pulse Rate 80 Respiratory Rate 18 16 16 Blood Pressure 151/64 H Pulse Oximetry 93 L 03/24/18 08:00 Temperature 97.8 F Pulse Rate 83 Respiratory Rate 18 Blood Pressure 167/77 H Pulse Oximetry 96 Intake & Output 03/23/18 03/24/18 03/24/18 18:59 06:59 18:59 Intake Total 1820 / 1820 340 / 340 950 / 950 Output Total 575 / 575 Balance 1820 / 1820 -235 / -235 950 / 950 Intake: IV 1100 / 1100 100 / 100 950 / 950 NS Inj 1,000 ML @ 42 mls/hr IV. 1000 / 1000 900 / 900 CONT .[id number] [facility] Rx#:[id number] Zosyn 3.375 GM Premix 50 ML @ 100 / 100 100 / 100 50 / 50 100 mls/hr IV.SIG Q6H [facility] Rx#: [id number] Oral 720 / 720 240 / 240 Output: Urine 575 / 575 Other: # Voids 3 Date of Last Bowel Movement 03/22/18 03/22/18 Narrative: GENERAL: Elderly male resting in bed in [facility]. HEENT: AT/NC. Pupils equal and round. MMM. Poor dentition. HEART: RRR no m/r/g. LUNGS: CTAB without wheezes or crackles. ABDOMEN: +BS, soft, NT, ND. EXTREMITIES: Bilateral LE wrapped in dressing. Diminished pedal pulses. Bilateral feet warm. Able to wiggle all toes. NEURO: Awake and alert. Results Procedures completed during hospitalization: 03/16 bedside debridement of toenails by podiatry Left femoropopliteal bypass - Impressions ITS Impressions Chest X-Ray 03/15/18 21:01 CONCLUSION: The lungs are clear. Tibia/Fibula X-Ray 03/15/18 21:09 CONCLUSION: Prominent edema/induration of the soft tissues of the leg. The osseous structures are intact. Lower Extremity MRI 03/16/18 00:00 CONCLUSION: 1. Superficial wound lateral aspect of the leg that has extended down to the muscle with minimal myositis 2. Generalized subcutaneous edema. Aorta w/Runoff CTA 03/17/18 00:03 CONCLUSION: 1. No significant aortoiliac inflow stenosis 2. Bilateral SFA occlusions. 3. Below-knee popliteal is a satisfactory target on the right 4. Distalmost left popliteal and trifurcation are relatively healthy in appearance 5. Large right-sided bowel containing inguinal hernia. Fat-containing left inguinal hernia. Myocardial Perfusion Scan Nuc Med 03/19/18 00:00 CONCLUSION: 1. No fixed or reversible perfusion defect is identified. 2. Normal left ventricle wall motion and ejection fraction. Discharge Plan - Discharge Disposition Patient Disposition: Discharge to SNF - Discharge Condition Condition: Good - Discharge Order Discharge Orders: Discharge Order (Routine); Ordered 03/24/18 Ordered By: Jannette Cedeno - Physicians Team Primary Care Provider: UNKNOWN, Attending Provider: Jannette Cedeno Other Providers: Dread Yeh MD ; Brayden Nino MD ; Boy Ceja DPM ; Meena Soria MD ; Rowdy Bond MD ; [facility]
[2018-03-25] MEDS: hydrALAZINE 25 MG Tablet PO SCH (09:03)
[2018-03-25] MEDS: Senna/Docusate Sodium 8.6/50 MG Tablet PO SCH (09:03)
[2018-03-25] MEDS: amLODIPine 10 MG Tablet PO SCH (09:03)
--- NOTE | 2018-03-25 16:13 | P.PNIM ---
Subjective Interval history: Patient discharge yesterday to SNF. Awaiting insurance authorization. He reports he is feeling okay today. No new issues. Physical Exam Vital signs: Vital Signs 03/24/18 20:00 03/25/18 00:00 03/25/18 04:00 Temperature 98 F 97.6 F 98 F Pulse Rate 64 66 57 L Respiratory Rate 17 18 17 Blood Pressure 140/65 133/66 138/63 Pulse Oximetry 94 L 95 94 L 03/25/18 08:00 03/25/18 12:00 Temperature 97.0 F L 97.1 F L Pulse Rate 59 L 57 L Respiratory Rate 18 15 Blood Pressure 162/66 H 138/62 Pulse Oximetry 95 93 L Intake & Output 03/24/18 03/25/18 03/25/18 18:59 06:59 18:59 Intake Total 1730 / 1730 1270 / 1270 Output Total 550 / 550 1600 / 1600 Balance 1180 / 1180 -330 / -330 Weight 100.6 kg Intake: IV 950 / 950 NS Inj 1,000 ML @ 42 mls/hr IV. 900 / 900 CONT .[id number] [facility] Rx#:[id number] Zosyn 3.375 GM Premix 50 ML @ 50 / 50 100 mls/hr IV.SIG Q6H [facility] Rx#: [id number] Oral 780 / 780 1270 / 1270 Output: Urine 550 / 550 1600 / 1600 Other: Date of Last Bowel Movement 03/24/18 03/24/18 # Bowel Movements 0 # Incontinent Bowel Movements 5 Narrative: GENERAL: Elderly male resting in bed in [facility]. HEENT: AT/NC. Pupils equal and round. MMM. Poor dentition. HEART: RRR no m/r/g. LUNGS: CTAB without wheezes or crackles. ABDOMEN: +BS, soft, NT, ND. EXTREMITIES: Bilateral LE wrapped in dressing. Diminished pedal pulses. Bilateral feet warm. Able to wiggle all toes. NEURO: Awake and alert. - Urinary Catheter Management Indwelling Urethral Catheter Cath placed during this visit: yes, but has since been removed by the nurse Reason for continuing: Decision to DC catheter Insertion date: 03/22/18 Insertion time: 12:30 Removal date: 03/23/18 Removal time: 04:31 Results - Labs CBC & Chem 7: 03/23/18 06:58 03/23/18 06:58 - Procedures 03/16 bedside debridement of toenails by podiatry Left femoropopliteal bypass Assessment and Plan - Assessment (1) Bilateral cellulitis of lower leg Code(s): L03.116 - Cellulitis of left lower limb; L03.115 - Cellulitis of right lower limb Status: Acute (2) Open wound of both legs with complication Code(s): S81.801A - Unspecified open wound, right lower leg, initial encounter; S81.802A - Unspecified open wound, left lower leg, initial encounter Status: Acute (3) Peripheral vascular disease Code(s): I73.9 - Peripheral vascular disease, unspecified Status: Acute - Plan 72 year old male with CHD, venous stasis disease, and HLD admitted on 03/15 for bilateral LE wounds x 6 months. Patient underwent femoropopliteal bypass on the left. Treatment course detailed below: Bilateral lower extremity cellulitis, ulcers, L>R - Not septic, no leukocytosis or fever - ESR and CRP elevated - MRI with no signs of osteomyelitis but there is minimal myositis of the left lateral leg as well as generalized subcutaneous edema - ID followed the patient and he was treated with Zosyn and Diflucan. - Podiatry and vascular surgery followed the patient. He underwent left femoropopliteal bypass - Patient underwent 2D echo and nuclear stress test for cardiac clearance both of which were unremarkable -[facility] and follow- up outpatient with vascular surgery for intervention on the right in 3-4 weeks. -He is discharged on oral Levaquin and Diflucan per ID recommendations for an additional 10 days. Peripheral vascular disease - CTA 03/17 showing occluded bilateral SFAs - On a statin -Patient is status post left femoropopliteal. Will need intervention on the right in a month or so per vascular surgery. He is to follow-up outpatient with vascular surgery. GIULIA -Improved with IV fluids - Possibly from nuclear perfusion scan and recent contrast given during CTA Diastolic CHF - 2D echo showing EF of 60-65% with normal LV size and wall thickness -Lasix was initially put on hold. Can resume on discharge. HTN - Continue Amlodipine 10 mg - hydralazine 25 mg BID HLD - Continue home statin Pre-diabetes - A1c 6.3 - Counseled on diet and exercise - Will need close follow-up as an outpatient Discharge Planning: Discharge to SNF. Awaiting insurance authorization.
[2018-03-25] MEDS: Sod Chloride 0.9% Inj 1,000 ML IV.CONT SCH (16:17)
--- NOTE | 2018-03-25 16:47 | P.PNPOD ---
Subjective Interval history: Bilateral leg wounds. Pt states he had some pain yesterday due to tight bandaging but it has resolved. He is being discharged to rehab today. Physical Exam Vital signs: Vital Signs 03/24/18 20:00 03/25/18 00:00 03/25/18 04:00 Temperature 98 F 97.6 F 98 F Pulse Rate 64 66 57 L Respiratory Rate 17 18 17 Blood Pressure 140/65 133/66 138/63 Pulse Oximetry 94 L 95 94 L 03/25/18 08:00 03/25/18 12:00 Temperature 97.0 F L 97.1 F L Pulse Rate 59 L 57 L Respiratory Rate 18 15 Blood Pressure 162/66 H 138/62 Pulse Oximetry 95 93 L Intake & Output 03/24/18 03/25/18 03/25/18 18:59 06:59 18:59 Intake Total 1730 / 1730 1270 / 1270 Output Total 550 / 550 1600 / 1600 Balance 1180 / 1180 -330 / -330 Weight 100.6 kg Intake: IV 950 / 950 NS Inj 1,000 ML @ 42 mls/hr IV. 900 / 900 CONT .[id number] [facility] Rx#:[id number] Zosyn 3.375 GM Premix 50 ML @ 50 / 50 100 mls/hr IV.SIG Q6H [facility] Rx#: [id number] Oral 780 / 780 1270 / 1270 Output: Urine 550 / 550 1600 / 1600 Other: Date of Last Bowel Movement 03/24/18 03/24/18 # Bowel Movements 0 # Incontinent Bowel Movements 5 Narrative: Bilateral superficial venous stasis ulcerations, unchanged in size since previous evaluation. No erythema or signs of infection. Medications and Allergies Active Medications: Active Medications Acetaminophen (Tylenol) 650 mg PO Q4H PRN PRN Reason: Temp > 100.4 Al Hydroxide/Mg Hydroxide (Milk Of Magnesia Liq) 30 ml PO Q12H PRN PRN Reason: Mild Constipation Amlodipine Besylate (Norvasc) 10 mg PO DAILY [facility] Last Admin: 03/25/18 09:03 Dose: 10 mg Bisacodyl (Dulcolax Supp) 10 mg RECTAL DAILY PRN PRN Reason: SEVERE CONSITIPATION Cephalexin Monohydrate (Keflex) 500 mg PO Q6HR [facility] Last Admin: 03/25/18 11:43 Dose: 500 mg Clonidine HCl (Catapres) 0.1 mg PO Q6H PRN PRN Reason: HYPERTENSION Last Admin: 03/21/18 08:15 Dose: 0.1 mg Clopidogrel Bisulfate (Plavix) 75 mg PO DAILY [facility] Last Admin: 03/25/18 09:03 Dose: 75 mg Furosemide (Lasix) 40 mg PO DAILY [facility] Last Admin: 03/22/18 08:44 Dose: Not Given Heparin Sodium (Porcine) (Heparin Inj) 5,000 units SQ Q12HR [facility] Last Admin: 03/21/18 21:04 Dose: 5,000 units Hydralazine HCl (Apresoline) 25 mg PO BID [facility] Last Admin: 03/25/18 09:03 Dose: 25 mg Sodium Chloride (Ns Inj) 1,000 mls @ 42 mls/hr IV.CONT .[id number] [facility] Last Admin: 03/25/18 16:17 Dose: Not Given Lactulose (Lactulose Liq) 30 ml PO DAILY PRN PRN Reason: SEVERE CONSITIPATION Morphine Sulfate (Morphine Inj) 4 mg IV.PUSH Q4H PRN PRN Reason: pain 6-10 Last Admin: 03/24/18 22:05 Dose: 4 mg Ondansetron HCl (Zofran Inj) 4 mg IV.PUSH Q6H PRN PRN Reason: NAUSEA OR VOMITING Pravastatin Sodium (Pravachol) 40 mg PO QPM [facility] Last Admin: 03/24/18 17:55 Dose: 40 mg Senna/Docusate Sodium (Renee-Colace) 1 tab PO BID [facility] Last Admin: 03/25/18 09:03 Dose: Not Given Sennosides (Senokot) 17.2 mg PO Q12H PRN PRN Reason: Moderate Constipation Allergies Allergy/AdvReac Type Severity Reaction Status Date / Time No Known Allergies Allergy Verified 03/15/18 21:47 Home Medications Medication Instructions Recorded Confirmed Type furosemide [Lasix] 40 mg PO DAILY 03/15/18 03/15/18 History simvastatin 20 mg PO QPM 03/15/18 03/15/18 History Results - Labs CBC & Chem 7: 03/23/18 06:58 03/23/18 06:58 - Procedures 03/16 bedside debridement of toenails by podiatry Left femoropopliteal bypass Assessment and Plan - Assessment (1) Bilateral cellulitis of lower leg Code(s): L03.116 - Cellulitis of left lower limb; L03.115 - Cellulitis of right lower limb Status: Acute (2) Open wound of both legs with complication Code(s): S81.801A - Unspecified open wound, right lower leg, initial encounter; S81.802A - Unspecified open wound, left lower leg, initial encounter Status: Acute - Plan -cont wound care orders in SNF -f/u with Dr. Gonzalez outpatient -elevate legs while at rest -ok for d/c from podiatry standpoint
== END 2018-03-25 18:10 ==
LOC: NEPE 16:52 → NEDA 22:45 → N05 03-16 02:42
PROVIDERS: ADMIT Family Medicine; ATTEND Family Medicine